=== PATIENT | male | born 1950 | race Caucasian/White ===

== ENCOUNTER 2018-05-22 12:41 | Emergency (ER) | payer MEDICARE, SELFPAY ==
[2018-05-22] VITALS (7 sets, daily range): BP systolic 126–172; BP diastolic 71–91; PULSE 66–101; RESP 13–19; O2SAT 93–99; BMI 28.7
--- NOTE | 2018-05-22 13:09 | DI.RAD.S_ITS ---
PROCEDURE: XR CHEST 1V INDICATIONS: chest pain TECHNIQUE: One view of the chest was acquired. COMPARISON: [facility], , CHEST 1 VIEW, 03/23/2016, 16:13. FINDINGS: Surgical changes and devices: None. Lungs and pleura: No pleural effusions or pneumothorax. Lungs are clear. Mediastinum: Mediastinal contours appear normal. Heart size is normal. Bones and chest wall: No suspicious bony lesions. Overlying soft tissues appear unremarkable. IMPRESSION: No acute process. Dictated by: Alexandra Mcnulty M.D. on 05/22/2018 at 13:20 Approved by: Alexandra Mcnulty M.D. on 05/22/2018 at 13:21
[2018-05-22 13:14] LABS: Add Manual Diff / Slide Review NO; Basophils Percent Auto 1.3 % (0-2); Eosinophils Percent Auto 2.2 % (2-4); Hemoglobin 13.1 g/dL (13.5-17.5); Lymphocytes Percent Auto 23.8 % (25-40); Mean Corpuscular HGB Conc 34.3 % (30-36); Mean Corpuscular Hemoglobin 33.2 PG (26-34); Mean Corpuscular Volume 96.8 fL (80-100); Monocytes Percent Auto 7.7 % (3-14); Neutrophils Absolute Auto 4400 /uL (3000-5900); Platelet Count 259 X10^3/uL (150-400); Red Blood Cell Count 3.93 X10^6/uL (4.5-5.9); Red Cell Distribution Width 13.2 % (11.6-14.8); White Blood Cell Count 6.8 X10^3/uL (4.5-11.0)
[2018-05-22 13:17] LABS: Prothrombin Time 11.3 SECONDS (10.1-12.7)
[2018-05-22 13:19] LABS: PTT Partial Thromboplastin Tim 31 SECONDS (26.4-36.2)
[2018-05-22 13:21] LABS: Alanine Aminotransferase 33 IU/L (21-72); Albumin 4.4 g/dL (3.5-5.0); Albumin Globulin Ratio 1.6 (1.0-2.8); Alkaline Phosphatase 57 U/L (38-126); Aspartate Aminotransferase 31 IU/L (17-59); Bilirubin Total 0.3 mg/dL (0.2-1.3); Blood Urea Nitrogen 31 mg/dL (9-20); Calcium 9.6 mg/dL (8.4-10.2); Carbon Dioxide 22 mmol/L (22-32); Chloride 104 mmol/L (98-107); Creatine Kinase 292 U/L (55-170); Estimated Glomerular Filt Rate > 60.0 mL/min (>60); Globulin 2.7 g/dL (1.7-4.1); Glucose 146 mg/dL (80-110); HEMOLYSIS < 15 (0-50); Lipase 66 U/L (23-300); Potassium 4.3 mmol/L (3.4-5.1); Sodium 138 mmol/L (137-145); Total Protein 7.1 g/dL (6.3-8.2)
[2018-05-22 13:35] LABS: Troponin I < 0.012 ng/mL (0.01-0.034)
[2018-05-22 13:38] LABS: CKMB % Relative Index 1.5 % (1.5-5.0); Creatine Kinase MB 4.39 ng/mL (<2.37)
[2018-05-22 13:45] LABS: D Dimer < 200 ng/mL (<230)
--- NOTE | 2018-05-22 14:57 | ED_ITS ---
HPI - Chest Pain General Chief Complaint: Chest Pain Stated Complaint: BACK PAIN,NAUSEOUS,WEAK,CHEST PAIN Time Seen by Provider: 05/22/18 12:54 History of Present Illness HPI narrative: HPI 67-year-old obese male with HTN and HLD presents for evaluation of 1+ days of poorly characterized right-sided substernal chest discomfort/pressure that is nonradiating and is without identifiable provoking or relieving factors. Patient notes these had upwards of 6 weeks of poorly characterized pain on the opposing aspect of his back that is also without provoking or relieving factors. Patient denies a tearing or radiating sensation. Patient notes that his symptoms have waxed and waned. Patient has has stressed test approximately 2 years ago, this was reportedly unremarkable. Patient took two 324 mg aspirin prior to arrival. Patient denies recent immobilization, leg trauma, estrogen use , surgery in the last four weeks, hemoptysis, or malignancy in the last 6 months. M/S/F/SocHx notable for: please see HPI; remainder reviewed with patient and in chart. ROS: Negative constitutional, eye, cardiovascular, pulmonary, GI, , MSK, skin , neurologic, psychiatric, endocrine unless noted in the HPI. Exam HR 82 , BP 143/78, RR 19, SaO2 93% on room air; at 13:42. Gen: Pleasant, non-toxic appearing, resting comfortably. HEENT: NC, AT, PEERL, EOMI. Resp: Clear to auscultation bilaterally, normal work of breathing. Card: RRR with no M/R/G, no crackles in lung bases, no pedal edema, no JVD appreciated. GI: NT/ND Vascular: Both ankles, calves, and thighs of equal size, no calf tenderness to palpation bilaterally. MSK: No chest wall TTP. No visible deformities, strength and tone WNL. Skin: Normal color with no visible lesions. Neuro: AO x 3, no facial asymmetry, vision and hearing WNL. Psych: appears moderately anxious, mood and affect otherwise appropriate. Labs / Imaging (pertinent): WBC 6.8, Hb 13.1, Na 138, K 4.3. Troponin <0.012 PT/INR 1 .0 d-dimer <200 EKG: SR at 94 bpm, no TX segment depressions, no new ST segment changes, new LBBB, or T-wave changes that would suggest acute ischemia. CXR: No acute cardiopulmonary disease process. MDM Previous chart, nursing note, and vitals reviewed. A: 67-year-old obese male with HTN and HLD presents for evaluation of 1+ days of poorly characterized right-sided substernal chest discomfort/pressure that is nonradiating and is without identifiable provoking or relieving factors. DDx and Evaluation: * ACS - doubt ACS given a non-ischemic EKG and a negative troponin greater than six hours from maximal symptom onset. * UA - atypical history, HEART score 5 (Hx - 1, EKG - 0, age - 2, risk factors - 2, troponin - 0; 30 day MACE: 12 to 16.6%) mildly elevated, however all but one positive factors reflect baseline unchanged risk. Discussion was had with the patient regarding remain in the hospital for provocative testing versus discharge with prompt PCP follow-up, patient wished to be discharged, was appraised of the wrist, and will see his primary care physician within 48 hours for further testing as appropriate. * Pericarditis - consider pericarditis unlikely given the lack of TX segment depressions as well as the absence of diffuse ST-segment elevations, lack of reduction of pain when supine, and lack of a friction rub. * Myocarditis - unlikely given the negative troponin and an EKG without characteristic TX-segment or ST-segment changes. * Dissection - dissection is unlikely given symptoms, and lack of mediastinal widening. * PE - Wells' (Signs & Sx of DVT - 0, PE is #1 or equally likelihood - 0, HR > 100 - 0, immobilization of >=3 days or surgery in last 28 days - 0, prior DVT or PE - 0, hemoptysis - 0, malignancy w/ tx in last 6 mo or palliative - 0) 0; as such the patient's negative d-dimer is appropriate for PE rule out/risk stratification. * Mediastinal Air - no evidence by CXR or auscultation. * Pneumothorax - no evidence by CXR or physical exam. * MSK - doubt given lack of reproducibility on exam. * Endocarditis - no identifiable risk factors, patient afebrile, no new murmurs appreciated on exam; doubt. * GI (Esophageal rupture, GERD) - esophageal rupture effectively excluded given the lack of mediastinal widening, non-toxic appearance, and lack of identifiable risk factors. While not definitively excluded, further evaluation of GERD is deferred to an outpatient setting * Patient was notified of their elevated blood pressure and recommended to follow up with their primary care physician. As the patient is without evidence of acute end organ dysfunction no further emergent evaluation is indicated as per the 2013 [facility] clinical policy. ED Course: Vital signs remained stable and within clinically acceptable limits. Disposition: Discharge with PCP follow up. Return to care precautions given verbally and in writing. Impression: Chest Pain, a symptom of hypertension. (please reference below for remainder of encounter information) Related Data Home Medications Medication Instructions Recorded Confirmed aspirin 650 mg PO .ONCE 05/22/18 05/22/18 latanoprost 1 drp OPHTHALMIC (EYE) BEDTIME 05/22/18 05/22/18 lisinopril-hydrochlorothiazide 1 tab PO DAILY 05/22/18 05/22/18 omeprazole magnesium [Prilosec OTC] 1 tab PO DAILY 05/22/18 05/22/18 pravastatin 1 tab PO DAILY 05/22/18 05/22/18 Allergies Allergy/AdvReac Type Severity Reaction Status Date / Time No Known Drug Allergies Allergy Verified 05/22/18 12:50 Exam Initial Vital Signs Initial Vital Signs: Vital Signs Pulse Rate 101 H 05/22/18 12:50 Respiratory Rate 17 05/22/18 12:50 Blood Pressure 172/91 H 05/22/18 12:50 Pulse Oximetry 99 05/22/18 12:50 Course Orders Ordered: ED Orders 05/22/18 12:25 D Dimer Stat 05/22/18 12:55 Complete Blood Count AUTO DIFF Stat Comprehensive Metabolic Panel Stat Lipase Stat Partial Thromboplastin Time Stat Prothrombin Time INR Stat Troponin & CK Cardiac Panel Stat 05/22/18 13:09 XR chest 1V Stat Vital Signs - 8 hr 05/22/18 12:50 05/22/18 13:10 05/22/18 13:42 Pulse Rate 101 H 92 H 82 Respiratory Rate 17 19 19 Blood Pressure 172/91 H Blood Pressure [Left Arm] 151/79 H 143/78 H Pulse Oximetry 99 97 93 05/22/18 14:10 05/22/18 14:39 Pulse Rate 84 83 Respiratory Rate 16 18 Blood Pressure Blood Pressure [Left Arm] 143/76 H 139/72 H Pulse Oximetry 97 96 MDM - Chest Pain Lab Data Result diagrams: 05/22/18 12:55 05/22/18 12:55 Lab Results 05/22/18 05/22/18 05/22/18 Range/Units 12:25 12:55 12:55 WBC 6.8 (4.5-11.0) X10^3/uL RBC 3.93 L (4.5-5.9) X10^6/uL Hgb 13.1 L (13.5-17.5) g/dL Hct 38.0 L (41-53) % MCV 96.8 (80-100) fL MCH 33.2 (26-34) PG MCHC 34.3 (30-36) % RDW 13.2 (11.6-14.8) % Plt Count 259 (150-400) X10^3/uL Neut % (Auto) 65.0 (50-75) % Lymph % (Auto) 23.8 L (25-40) % [place] % (Auto) 7.7 (3-14) % Eos % (Auto) 2.2 (2-4) % Baso % (Auto) 1.3 (0-2) % Neut # (Auto) 4400 (5746-7261) /uL PT 11.3 (10.1-12.7) SECONDS INR 1.0 (0.9-1.3) APTT 31 (26.4-36.2) SECONDS D-Dimer < 200 (<230) ng/mL Sodium (137-145) mmol/L Potassium (3.4-5.1) mmol/L Chloride (98-107) mmol/L Carbon Dioxide (22-32) mmol/L BUN (9-20) mg/dL Creatinine (0.66-1.25) mg/dL Estimated GFR (>60) mL/min BUN/Creatinine Ratio (6-22) Glucose (80-110) mg/dL Calcium (8.4-10.2) mg/dL Total Bilirubin (0.2-1.3) mg/dL AST (17-59) IU/L ALT (21-72) IU/L Alkaline Phosphatase (38-126) U/L Total Creatine Kinase (55-170) U/L CK-MB (CK-2) (<2.37) ng/mL CK-MB (CK-2) Rel Index (1.5-5.0) % Troponin I (0.01-0.034) ng/mL Total Protein (6.3-8.2) g/dL Albumin (3.5-5.0) g/dL Globulin (1.7-4.1) g/dL Albumin/Globulin Ratio (1.0-2.8) Lipase (23-300) U/L 05/22/18 Range/Units 12:55 WBC (4.5-11.0) X10^3/uL RBC (4.5-5.9) X10^6/uL Hgb (13.5-17.5) g/dL Hct (41-53) % MCV (80-100) fL MCH (26-34) PG MCHC (30-36) % RDW (11.6-14.8) % Plt Count (150-400) X10^3/uL Neut % (Auto) (50-75) % Lymph % (Auto) (25-40) % [place] % (Auto) (3-14) % Eos % (Auto) (2-4) % Baso % (Auto) (0-2) % Neut # (Auto) (1053-3132) /uL PT (10.1-12.7) SECONDS INR (0.9-1.3) APTT (26.4-36.2) SECONDS D-Dimer (<230) ng/mL Sodium 138 (137-145) mmol/L Potassium 4.3 (3.4-5.1) mmol/L Chloride 104 (98-107) mmol/L Carbon Dioxide 22 (22-32) mmol/L BUN 31 H (9-20) mg/dL Creatinine 1.00 (0.66-1.25) mg/dL Estimated GFR > 60.0 (>60) mL/min BUN/Creatinine Ratio 31.0 H (6-22) Glucose 146 H (80-110) mg/dL Calcium 9.6 (8.4-10.2) mg/dL Total Bilirubin 0.3 (0.2-1.3) mg/dL AST 31 (17-59) IU/L ALT 33 (21-72) IU/L Alkaline Phosphatase 57 (38-126) U/L Total Creatine Kinase 292 H (55-170) U/L CK-MB (CK-2) 4.39 H (<2.37) ng/mL CK-MB (CK-2) Rel Index 1.5 (1.5-5.0) % Troponin I < 0.012 (0.01-0.034) ng/mL Total Protein 7.1 (6.3-8.2) g/dL Albumin 4.4 (3.5-5.0) g/dL Globulin 2.7 (1.7-4.1) g/dL Albumin/Globulin Ratio 1.6 (1.0-2.8) Lipase 66 (23-300) U/L Discharge Plan Departure Prescriptions: No Action latanoprost 0.005 % drops 1 drp ophthalmic (eye) BEDTIME RF: 0 lisinopril-hydrochlorothiazide 20-12.5 mg tablet 1 tab PO DAILY RF: 0 pravastatin 20 mg tablet 1 tab PO DAILY RF: 0 aspirin 325 mg Tablet 650 mg PO .ONCE RF: 0 omeprazole magnesium [Prilosec OTC] 20 mg Tablet,Delayed Release (Dr/Ec) 1 tab PO DAILY RF: 0
== END 2018-05-22 15:37 | disposition home or self-care (01) ==
PROVIDERS: Emergency Provider Emergency Medicine; Family Provider Family Medicine; PCP Family Medicine
DX: R07.89 Other chest pain (principal)
CPT/HCPCS: 36591; 71045; 80053; 82550; 82553; 83690; 84484; 85025; 85379; 85610; 85730; 93005; 93010; 99283; 99285

== ENCOUNTER → 2019-05-21 11:36 | Outpatient (CLI) | payer MEDICARE, SELFPAY ==
--- NOTE | 2019-05-21 | DI.RAD.S_ITS ---
PROCEDURE: XR KNEE RT 3V INDICATIONS: RT KNEE PAIN TECHNIQUE: 3 views of the knee were acquired. COMPARISON: [facility], , KNEE 3V RIGHT, 07/11/2010, 15:35. FINDINGS: Bones: No fractures or dislocations but there has been progression of medial compartment knee joint osteoarthritis at the right knee with secondary varus angulation to a greater degree than previously present in July of 2010. There now is [id number] articulation at the medial compartment and prominent osteophytic spurring and degenerative knee joint osteoarthritis at the patellofemoral joint. No suspicious bony lesions. Soft tissues: No joint effusion. No suspicious soft tissue calcifications. IMPRESSION: Severe knee joint osteoarthritis, [id number] articulation, no trauma. Dictated by: Michael Andujar M.D. on 05/21/2019 at 13:33 Approved by: Michael Andujar M.D. on 05/21/2019 at 13:35
== END ==
PROVIDERS: PCP Family Medicine; Visit Provider Family Medicine
DX: M25.561 Pain in right knee (principal); M17.11 Unilateral primary osteoarthritis, right knee
CPT/HCPCS: 73562

== ENCOUNTER 2019-10-23 09:36 | Day surgery (SDC) | payer MEDICARE, SELFPAY ==
[2019-10-23] VITALS (18 sets, daily range): BP systolic 113–164; BP diastolic 55–93; PULSE 70–128; RESP 12–22; TEMP 36.6–37.1; O2SAT 92–100; BMI 29.2
--- NOTE | 2019-10-23 | PATH_ITS ---
[facility] Accession Number: [id number] . 01 Material submitted: . appendix - APPENDIX . 01 Clinical history: . ABDOMEN PAIN COMES AND GOES LOWER RIGHT TO UPPER . 02 Diagnosis: Appendix, Appendectomy: Acute appendicitis with serositis. No evidence of neoplasm. [facility] 10/27/2019 1313 Local . 02 Electronically signed: . Lg Vigil MD, PhD, Pathologist NPI- [id number] . 01 Gross description: . Received in formalin, labeled appendix, is an intact appendix (length-6.6 cm, diameter-up to 1.0 cm) with carvajal-peres partially exudate-covered serosa and attached mesoappendix (up to 0.2 cm in depth). The resection margin is received stapled. The lumen contains carvajal-peres solid soft material. The wall is up to 0.3 cm thick. No nodules, masses, or lesions are identified. The resection margin is inked blue. Section Code: (A1) resection margin en face and three business services representative serial sections; (A2) one half of the bivalve tip. ([id number]) /[facility] 10/26/2019 1455 Local . 02 Pathologist provided ICD-10: K35.80 . 02 CPT . 801877 Performed at: 01 [facility] [address], [place], [place] [id number] MD Juan Jose Tobias MD Phone: [phone] Performed at: 02 [facility] [address] [place], [place] [id number] MD Ingrid Antunez MD Phone: [phone]
--- NOTE | 2019-10-23 09:47 | ED_ITS ---
HPI - Abdominal Pain General Chief Complaint: Abdominal Pain Stated Complaint: abdomen pain comes and goes lower right to upper Time Seen by Provider: 10/23/19 09:43 Source: patient Mode of arrival: Ambulatory Limitations: no limitations History of Present Illness HPI narrative: Patient is a 68-year-old male who presents with right lower quadrant pain which started this morning. He says last night he has had decr eased appetite and overall hasn't felt well. The pain seems to be in his right lower quadrant it is worse with movement. He denies any nausea vomiting or fever. He has no flank pain or testicular pain. He is noted to be tachycardic in the 120s. He said a day or 2 ago he had some epigastric pain but doesn't have any now. He denies any dizziness lightheadedness chest pain or shortness of breath. MD complaint: abdominal pain Onset (ago): hour(s) Pain Consistency: constant Location: RLQ Quality: aching and sharp Radiation: none Related Data Home Medications Medication Instructions Recorded Confirmed lisinopril-hydrochlorothiazide 1 tab PO DAILY 05/22/18 10/23/19 allopurinol 300 mg tablet 300 mg PO BID 06/29/19 10/23/19 Allergies Allergy/AdvReac Type Severity Reaction Status Date / Time Hdampmz-Qmz-Mke Reductase AdvReac Unknown Muscle Pain Verified 10/23/19 13:05 Inhibitor Review of Systems Review of Systems Narrative: GENERAL: Denies chills, fatigue, malaise, fever, sweats, travel HEENT: Denies sinus pain, ear pain, sore throat, difficulty swallowing, neck pain RESPIRATORY: Denies dyspnea, cough, wheezing, hemoptysis, sputum. CARDIOVASCULAR: Denies chest pain, palpitations, orthopnea, edema GASTROINTESTINAL: See HPI : Denies dysuria, frequency, incontinence, hematuria, urinary retention, flank pain. MUSCULOSKELETAL: Denies weakness, joint pain, or bony pain SKIN: No rash, no erythema, no pruritus NEUROLOGIC: Denies weakness, dizziness, headache, numbness, change in speech, confusion PSYCHIATRIC: No concerning psychosocial issues. 12 point review of systems is negative except for those stated above and HPI Patient History Medical History Gout (Acute) Hypertension (Acute) Insomnia (Chronic) Knee pain (Acute) Obstructive sleep apnea (Chronic) Social History household members: spouse Smoking Status: Never smoker alcohol intake: current Smoking Status: Never smoker Exam Initial Vital Signs Initial Vital Signs: Vital Signs Temperature 98.1 F 10/23/19 09:40 Pulse Rate 128 H 10/23/19 09:40 Respiratory Rate 22 10/23/19 09:40 Blood Pressure 159/71 H 10/23/19 09:40 Pulse Oximetry 97 10/23/19 09:40 GENERAL: alert well-appearing older gentleman and in no acute distress. HEENT: Head atraumatic,EOMI, pupils reactive, face symmetric, moist mucous membranes CARDIOVASCULAR: Regular rate and rhythm without murmurs, rubs or gallops. RESPIRATORY: Breath sounds equal bilaterally, no wheezes rales or rhonchi. ABDOMEN: Soft, tender right lower quadrant no guarding no rebound no right quadrant pain : No CVA tenderness EXTREMITIES: Normal range of motion, no clubbing or edema. Neurovascularly intact NEUROLOGICAL: Alert and oriented x4.Normal gait and speech. Cranial nerves II through XII grossly intact. SKIN: Warm, dry, no laceration, no petechiae, no rashes or lesions. Course Orders Ordered: ED Orders 10/23/19 09:55 Complete Blood Count AUTO DIFF Stat Comprehensive Metabolic Panel Stat Lactate (Lactic Acid) Stat Lipase Stat Troponin & CK Cardiac Panel Stat EKG-12 Lead Stat 10/23/19 09:56 CT abdomen pelvis w con Stat 10/23/19 11:12 Blood Culture Stat Acetaminophen (Tylenol) 650 mg PO Q6HR PRN PRN Reason: Pain, Mild (1-3) Allopurinol (Zyloprim) 300 mg PO BID ANYA Docusate Sodium (Colace) 100 mg PO BID PRN PRN Reason: Constipation Piperacillin/Tazobactam/Dextrose (Zosyn) 3.375 gm in 50 mls @ 100 mls/hr IV Q8H ANYA Stop: 10/23/19 19:31 Sodium Chloride (Normal Saline 0.9%) 1,000 mls @ 75 mls/hr IV CONT ANYA Last Admin: 10/23/19 16:42 Dose: 75 mls/hr Documented by: ISAMAR Naloxone HCl (Narcan) 0.2 mg IV Q2MIN PRN PRN Reason: Opiate Reversal Ondansetron HCl (Zofran) 4 mg IV Q4HR PRN PRN Reason: Nausea And Vomiting Oxycodone HCl (Percolone) 5 mg PO Q4HR PRN PRN Reason: Pain, Moderate (4-6) Oxycodone HCl (Percolone) 10 mg PO Q6HR PRN PRN Reason: Pain, Severe (7-10) Discontinued Medications Acetaminophen (Tylenol) 975 mg PO NOW ONE Stop: 10/23/19 12:33 Last Admin: 10/23/19 13:13 Dose: 975 mg Documented by: GANESH Benzocaine (Cepacol Lozenge) 1 each PO NOW ONE Stop: 10/23/19 15:09 Bupivacaine HCl/Epinephrine Bitart (Marcaine 0.25% W/ Epi (Pf)) 20 ml INJ NOW ONE Stop: 10/23/19 14:06 Last Admin: 10/23/19 14:06 Dose: 30 ml Documented by: TITUS Fentanyl (Sublimaze) 0 mcg IV Q5MIN PRN PRN Reason: Pain, Severe (7-10) Last Admin: 10/23/19 15:03 Dose: 25 mcg Documented by: GANESH Gabapentin (Neurontin) 300 mg PO NOW ONE Stop: 10/23/19 12:33 Last Admin: 10/23/19 13:13 Dose: 300 mg Documented by: GANESH Sodium Chloride (Normal Saline 0.9%) 1,000 mls @ 1,000 mls/hr IV CONT ANYA Last Infusion: 10/23/19 11:03 Dose: 0 mls/hr Documented by: Admin: 10/23/19 10:08 Dose: 1,000 mls/hr Documented by: VICTORINO Piperacillin/Tazobactam/Dextrose (Zosyn) 3.375 gm in 50 mls @ 100 mls/hr IV NOW ONE Stop: 10/23/19 11:49 Last Infusion: 10/23/19 12:20 Dose: 0 mls/hr Documented by: Admin: 10/23/19 11:30 Dose: 100 mls/hr Documented by: VICTORINO Sodium Chloride (Normal Saline 0.9%) 1,000 mls @ 150 mls/hr IV BOLUS ONE Stop: 10/23/19 18:06 Last Infusion: 10/23/19 12:54 Dose: 0 mls/hr Documented by: Admin: 10/23/19 11:30 Dose: 150 mls/hr Documented by: VICTORINO Lactated Ringer's (Lactated Ringers) 1,000 mls @ 42 mls/hr IV CONT ANYA Last Infusion: 10/23/19 15:31 Dose: 0 mls/hr Documented by: Admin: 10/23/19 14:21 Dose: 42 mls/hr Documented by: Infusion: 10/23/19 14:21 Dose: 42 mls/hr Documented by: Admin: 10/23/19 13:07 Dose: 42 mls/hr Documented by: GANESH Lactated Ringer's (Lactated Ringers) 1,000 mls @ 120 mls/hr IV CONT ANYA Oxycodone HCl (Percolone) 5 mg PO PACUNOW PRN PRN Reason: Mild or moderate pain Last Admin: 10/23/19 15:27 Dose: 5 mg Documented by: GANESH Vital Signs Vital signs: Vital Signs - 8 hr 10/23/19 10:57 10/23/19 11:35 Pulse Rate 104 H 110 H Respiratory Rate 20 18 Blood Pressure [Left Arm] 149/86 H Pulse Oximetry 97 100 MDM - Abdominal Pain Lab Data Attestation: I reviewed the patient's lab results. Result diagrams: 10/23/19 09:55 10/23/19 09:55 Labs: Lab Results 10/23/19 10/23/19 10/23/19 Range/Units 09:55 09:55 09:55 WBC 13.4 H (4.5-11.0) X10^3/uL RBC 4.12 L (4.5-5.9) X10^6/uL Hgb 13.4 L (13.5-17.5) g/dL Hct 40.0 L (41-53) % MCV 97.0 (80-100) fL MCH 32.5 (26-34) PG MCHC 33.5 (30-36) % RDW 15.7 H (11.6-14.8) % Plt Count 223 (150-400) X10^3/uL Neut % (Auto) 78.0 H (50-75) % Lymph % (Auto) 11.5 L (25-40) % [place] % (Auto) 8.8 (3-14) % Eos % (Auto) 0.9 L (2-4) % Baso % (Auto) 0.8 (0-2) % Neut # (Auto) 56608 H (0370-5529) /uL Lymph # (Auto) 1500 (2009-6736) /uL [place] # (Auto) 1200 H (0-900) /uL Eos # (Auto) 100 (0-450) /uL Baso # (Auto) 100 (0-100) /uL Sodium 139 (137-145) mmol/L Potassium 4.2 (3.4-5.1) mmol/L Chloride 103 (98-107) mmol/L Carbon Dioxide 25 (22-32) mmol/L BUN 20 (9-20) mg/dL Creatinine 0.80 (0.66-1.25) mg/dL Estimated GFR > 60.0 (>60) mL/min BUN/Creatinine Ratio 25.0 H (6-22) Glucose 123 H (80-110) mg/dL Lactate 1.3 (0.7-2.1) mmol/L Calcium 10.2 (8.4-10.2) mg/dL Total Bilirubin 0.5 (0.2-1.3) mg/dL AST 27 (17-59) IU/L ALT 24 (<50) IU/L Alkaline Phosphatase 77 (38-126) U/L Total Creatine Kinase 113 (55-170) U/L CK-MB (CK-2) 2.02 (<2.37) ng/mL CK-MB (CK-2) Rel Index 1.8 (1.5-5.0) % Troponin I < 0.012 (0.01-0.034) ng/mL Total Protein 8.0 (6.3-8.2) g/dL Albumin 4.7 (3.5-5.0) g/dL Globulin 3.3 (1.7-4.1) g/dL Albumin/Globulin Ratio 1.4 (1.0-2.8) Lipase 38 (23-300) U/L Point of care testing: Urine Dip Bedside Urine Glucose Negative Bedside Urine Bilirubin - Negative Bedside Urine Ketone - Negative Urine Specific [employer] 1.010 Bedside Urine Occult Blood - Negative Bedside Urine pH 6.5 Bedside Urine Protein - Negative Bedside Urine Urobilinogen - Negative Bedside Urine Nitrite - Negative Bedside Urine Leukocytes - Negative Esterase Imaging Data CT scan - abdomen/pelvis: Radiologist's Impression: PROCEDURE: CT ABDOMEN PELVIS W CON INDICATIONS: rlq pain TECHNIQUE: After the administration of intravenous contrast, 5 mm thick sections acquired from the diaphragm to the symphysis. 5 mm coronal and sagittal reformats were acquired. For radiation dose reduction, the following was used: automated exposure control, adjustment of mA and/or kV according to patient size. COMPARISON: None. FINDINGS: Image quality: Excellent. ABDOMEN: Lung bases: Lung bases are clear. Heart size is normal. Coronary artery calcifications are seen. Solid organs: Liver is normal in size and enhancement. Within the liver, nonenhancing water density cysts are seen, with the largest measuring 4.2 cm. Diffuse fatty liver infiltration is noted. Gallbladder wall does not appear thickened. Biliary system is non dilated. Pancreas enhances normally. Spleen is normal in size and enhancement. Incidental note is made of an accessory spleen along the hilum of the primary spleen. No adrenal nodules. Kidneys demonstrate normal size and enhancement, without hydronephrosis. Bilateral simple appearing renal cysts are seen. Peritoneum and bowel: In this patient with this given history, scrutiny is given to the appendix. The appendix is abnormal in hyperenhancing, with a caliber of 11 mm. There is moderate surrounding inflammatory change seen. An appendicolith is faintly seen. Moderate fat stranding is seen surrounding the appendix. No free air is seen. No loculated fluid collections are seen. No dilated loops of bowel are seen. No focal colonic body is seen. Nodes and vessels: No retroperitoneal or mesenteric adenopathy by size criteria. Aorta and inferior vena cava are normal in size. Atherosclerotic calcification is noted. Miscellaneous: No ventral hernias. PELVIS: Genitourinary: Bladder wall thickness is normal. Miscellaneous: No inguinal adenopathy. There are bilateral fat-containing inguinal hernias. Bones: No suspicious bony lesions. There is a left hip arthroplasty seen. No vertebral body compression fractures. Mild levoconvex scoliotic curvature is noted. Degenerative changes are seen, which are most prominent involving the lower lumbar spine. IMPRESSION: Acute appendicitis. No findings of perforation or abscess are seen. Incidental note is made of: Coronary artery calcification Liver and renal cysts Levoconvex lumbar curvature Left hip arthroplasty hardware Bilateral fat-containing inguinal hernias Dictated by: Fritz Starr M.D. on 10/23/2019 at 10:03 MDM Narrative Medical decision making narrative: The patient is found to have appendicitis with leukocytosis of 13 Dr. Contreras, surgery has been updated patient's symptoms test results request Nadjasyn. Patient has been NPO since last evening. Discharge Plan Departure Patient Disposition: Admitted As Inpatient Clinical Impression: Acute appendicitis Qualifiers: Acute appendicitis type: with localized peritonitis Appendicitis gangrene p resence: without gangrene Appendicitis perforation presence: without perforation Appendicitis abscess presence: without abscess Qualified Code(s): K35.30 - Acute appendicitis with localized peritonitis, without perforation or gangrene Discharge Date/Time: 10/23/19 12:57 Admit Date/Time: 10/23/19 12:11 Admit Provider: Maura Contreras
--- NOTE | 2019-10-23 09:56 | DI.CT.S_ITS ---
PROCEDURE: CT ABDOMEN PELVIS W CON INDICATIONS: rlq pain TECHNIQUE: After the administration of intravenous contrast, 5 mm thick sections acquired from the diaphragm to the symphysis. 5 mm coronal and sagittal reformats were acquired. For radiation dose reduction, the following was used: automated exposure control, adjustment of mA and/or kV according to patient size. COMPARISON: None. FINDINGS: Image quality: Excellent. ABDOMEN: Lung bases: Lung bases are clear. Heart size is normal. Coronary artery calcifications are seen. Solid organs: Liver is normal in size and enhancement. Within the liver, nonenhancing water density cysts are seen, with the largest measuring 4.2 cm. Diffuse fatty liver infiltration is noted. Gallbladder wall does not appear thickened. Biliary system is non dilated. Pancreas enhances normally. Spleen is normal in size and enhancement. Incidental note is made of an accessory spleen along the hilum of the primary spleen. No adrenal nodules. Kidneys demonstrate normal size and enhancement, without hydronephrosis. Bilateral simple appearing renal cysts are seen. Peritoneum and bowel: In this patient with this given history, scrutiny is given to the appendix. The appendix is abnormal in hyperenhancing, with a caliber of 11 mm. There is moderate surrounding inflammatory change seen. An appendicolith is faintly seen. Moderate fat stranding is seen surrounding the appendix. No free air is seen. No loculated fluid collections are seen. No dilated loops of bowel are seen. No focal colonic body is seen. Nodes and vessels: No retroperitoneal or mesenteric adenopathy by size criteria. Aorta and inferior vena cava are normal in size. Atherosclerotic calcification is noted. Miscellaneous: No ventral hernias. PELVIS: Genitourinary: Bladder wall thickness is normal. Miscellaneous: No inguinal adenopathy. There are bilateral fat-containing inguinal hernias. Bones: No suspicious bony lesions. There is a left hip arthroplasty seen. No vertebral body compression fractures. Mild levoconvex scoliotic curvature is noted. Degenerative changes are seen, which are most prominent involving the lower lumbar spine. IMPRESSION: Acute appendicitis. No findings of perforation or abscess are seen. Incidental note is made of: Coronary artery calcification Liver and renal cysts Levoconvex lumbar curvature Left hip arthroplasty hardware Bilateral fat-containing inguinal hernias Dictated by: Fritz Starr M.D. on 10/23/2019 at 10:03 Approved by: Fritz Starr M.D. on 10/23/2019 at 10:07
[2019-10-23] MEDS: SODIUM CHLORIDE 0.9% 1,000 ML 1000 ML IV (10:08)
[2019-10-23 10:13] LABS: Add Manual Diff / Slide Review NO; Basophils Absolute Auto 100 /uL (0-100); Basophils Percent Auto 0.8 % (0-2); Eosinophils Absolute Auto 100 /uL (0-450); Eosinophils Percent Auto 0.9 % (2-4); Hemoglobin 13.4 g/dL (13.5-17.5); Lymphocytes Absolute Auto 1500 /uL (1100-4500); Lymphocytes Percent Auto 11.5 % (25-40); Mean Corpuscular HGB Conc 33.5 % (30-36); Mean Corpuscular Hemoglobin 32.5 PG (26-34); Monocytes Absolute Auto 1200 /uL (0-900); Monocytes Percent Auto 8.8 % (3-14); Neutrophils Absolute Auto 10400 /uL (1500-7000); Platelet Count 223 X10^3/uL (150-400); Red Blood Cell Count 4.12 X10^6/uL (4.5-5.9); Red Cell Distribution Width 15.7 % (11.6-14.8); White Blood Cell Count 13.4 X10^3/uL (4.5-11.0)
[2019-10-23 10:23] LABS: Lactate (Lactic Acid) 1.3 mmol/L (0.7-2.1)
[2019-10-23 10:24] LABS: Alanine Aminotransferase 24 IU/L (<50); Albumin 4.7 g/dL (3.5-5.0); Albumin Globulin Ratio 1.4 (1.0-2.8); Alkaline Phosphatase 77 U/L (38-126); Aspartate Aminotransferase 27 IU/L (17-59); Bilirubin Total 0.5 mg/dL (0.2-1.3); Blood Urea Nitrogen 20 mg/dL (9-20); Calcium 10.2 mg/dL (8.4-10.2); Carbon Dioxide 25 mmol/L (22-32); Chloride 103 mmol/L (98-107); Creatine Kinase 113 U/L (55-170); Estimated Glomerular Filt Rate > 60.0 mL/min (>60); Globulin 3.3 g/dL (1.7-4.1); Glucose 123 mg/dL (80-110); HEMOLYSIS < 15 (0-50); Lipase 38 U/L (23-300); Potassium 4.2 mmol/L (3.4-5.1); Sodium 139 mmol/L (137-145)
[2019-10-23 10:35] LABS: Troponin I < 0.012 ng/mL (0.01-0.034)
[2019-10-23 10:40] LABS: CKMB % Relative Index 1.8 % (1.5-5.0); Creatine Kinase MB 2.02 ng/mL (<2.37)
[2019-10-23] MEDS: SODIUM CHLORIDE 0.9% 1,000 ML 150 ML IV (11:30)
[2019-10-23] MEDS: PIPERACILLIN-TAZO 3.375 GM/50 ML FROZ.PIGGY IV ×2 (11:30→19:15)
--- NOTE | 2019-10-23 12:12 | P.HP_ITS ---
History of Present Illness History of Present Illness Date Patient Seen: 10/23/19 Time Patient Seen: 12:12 Chief complaint: abdomen pain comes and goes lower right to upper Narrative: This is a 68-year-old man with history of gout and hypertension, a prior hip replacement, and awaiting any replacement, who came into the ER this morning with right-sided abdominal pain which began last evening. He had some epigastric pain a few days ago, which he felt was an intolerance of the indomethacin which he was taking for his gout. The epigastric pain resolved after he stops the indomethacin. He said the right-sided abdominal pain came on somewhat suddenly as he was getting up from sitting down yesterday afternoon. He felt like a pinchor that he tore something. He notes the pain was still there this morning, and he was generally feeling unwell, with a poor appetite. So he came into the ER to get checked out. In the ER he was found to have leukocytosis, and a CT scan which was indicative of early acute appendicitis. He last ate last evening, and took his bills with a sip of water this morning. He denies a history of ever having had a heart attack or stroke, although he has come into the ER before for chest pain. He was always told that it was noncardiac. ROS: GENERAL: Denies chills, fatigue, malaise, fever, sweats, travel HEENT: Denies sinus pain, ear pain, sore throat, difficulty swallowing, neck pain RESPIRATORY: Denies dyspnea, cough, wheezing, hemoptysis, sputum. CARDIOVASCULAR: Denies chest pain, palpitations, orthopnea, edema GASTROINTESTINAL: See HPI : Denies dysuria, frequency, incontinence, hematuria, urinary retention, flank pain. MUSCULOSKELETAL: Denies weakness, reports right knee pain, denies other musculoskeletal pains SKIN: No rash, no erythema, no pruritus NEUROLOGIC: Denies weakness, dizziness, headache, numbness, change in speech, confusion PSYCHIATRIC: No concerning psychosocial issues. PE: GENERAL: Well groomed and cooperative. Appears stated age. Answers questions promptly and appropriately. Vital signs noted. HENT: Normocephalic, atraumatic. Hearing intact. Oral mucosa is pink and moist. EYES: Conjunctiva pink, sclera white, no periorbital swelling. CARDIOVASCULAR: Regular rate. No pedal edema. RESPIRATORY: Non-tachypneic, breathing comfortably on room air. GASTROINTESTINAL: Abdomen soft and non-distended; focal tenderness in the right lower quadrant, negative Rovsing sign, 1/2 cm umbilical hernia defect which is nontender and not incarcerated GENITALURINARY: No flank tenderness. MUSCULOSKELETAL: Equal tone and mass bilaterally. SKIN: Warm, dry, soft, appropriate color for ethnicity. No other lesions, rashes, or wounds. NEURO: Alert and Oriented X 3. No gross sensory deficits, or cognitive issues. PSYCH: Appropriate affect and mood. Patient History Medical History (Updated 10/23/19 @ 12:19 by Maura Contreras MD) Gout (Acute) Hypertension (Acute) Insomnia (Chronic) Knee pain (Acute) Obstructive sleep apnea (Chronic) Family & Social History Safety & Behavioral: Feels Safe in Current Yes Environment Tobacco & Substance use: Smoking Status Never smoker alcohol intake frequency 0-2 drinks per day Substance Use Type does not use Meds Home Medications and Allergies Home Medications Medication Instructions Recorded Confirmed Type lisinopril-hydrochlorothiazide 1 tab PO DAILY 05/22/18 10/23/19 History allopurinol 300 mg tablet 300 mg PO DAILY 06/29/19 10/23/19 History Allergies Allergy/AdvReac Type Severity Reaction Status Date / Time No Known Drug Allergies Allergy Verified 06/29/19 14:49 Exam Vital Signs (past 8 hours): - 10/23/19 09:40 10/23/19 09:52 10/23/19 10:00 Temperature 98.1 F Pulse Rate 128 H 117 H 108 H Respiratory Rate 22 18 16 Blood Pressure 159/71 H Blood Pressure [Left Arm] 147/87 H Pulse Oximetry 97 97 96 10/23/19 10:57 10/23/19 11:35 Temperature Pulse Rate 104 H 110 H Respiratory Rate 20 18 Blood Pressure Blood Pressure [Left Arm] 149/86 H Pulse Oximetry 97 100 Oxygen Delivery Method Room Air Objective Imaging CT scan - abdomen: Radiologist's impression: [address] [address] [address] Scan Report Signed Patient: Ward Francis BRAYDENR#: [id number] : 9Acct:[id number] Age/Sex: 68 / MDate of Service: 10/23/19 Loc: ED Accession Number: [id number] Procedure: CT abdomen pelvis w con Ordering Provider: Sarita Lane D.O. PROCEDURE: CT ABDOMEN PELVIS W CON INDICATIONS: rlq pain TECHNIQUE: After the administration of intravenous contrast, 5 mm thick sections acquired from the diaphragm to the symphysis. 5 mm coronal and sagittal reformats were acquired. For radiation dose reduction, the following was used: automated exposure control, adjustment of mA and/or kV according to patient size. COMPARISON: None. FINDINGS: Image quality: Excellent. ABDOMEN: Lung bases: Lung bases are clear. Heart size is normal. Coronary artery calcifications are seen. Solid organs: Liver is normal in size and enhancement. Within the liver, nonenhancing water density cysts are seen, with the largest measuring 4.2 cm. Diffuse fatty liver infiltration is noted. Gallbladder wall does not appear thickened. Biliary system is non dilated. Pancreas enhances normally. Spleen is normal in size and enhancement. Incidental note is made of an accessory spleen along the hilum of the primary sp gonzalez. No adrenal nodules. Kidneys demonstrate normal size and enhancement, without hydronephrosis. Bilateral simple appearing renal cysts are seen. Peritoneum and bowel: In this patient with this given history, scrutiny is given to the appendix. The appendix is abnormal in hyperenhancing, with a caliber of 11 mm. There is moderate surrounding inflammatory change seen. An appendicolith is faintly seen. Moderate fat stranding is seen surrounding the appendix. No free air is seen. No loculated fluid collections are seen. No dilated loops of bowel are seen. No focal colonic body is seen. Nodes and vessels: No retroperitoneal or mesenteric adenopathy by size criteria. Aorta and inferior vena cava are normal in size. Atherosclerotic calcification is noted. Miscellaneous: No ventral hernias. PELVIS: Genitourinary: Bladder wall thickness is normal. Miscellaneous: No inguinal adenopathy. There are bilateral fat-containing inguinal hernias. Bones: No suspicious bony lesions. There is a left hip arthroplasty seen. No vertebral body compression fractures. Mild levoconvex scoliotic curvature is noted. Degenerative changes are seen, which are most prominent involving the lower lumbar spine. IMPRESSION: Acute appendicitis. No findings of perforation or abscess are seen. Incidental note is made of: Coronary artery calcification Liver and renal cysts Levoconvex lumbar curvature Left hip arthroplasty hardware Bilateral fat-containing inguinal hernias Dictated by: Fritz Starr M.D. on 10/23/2019 at 10:03 Approved by: Fritz Starr M.D. on 10/23/2019 at 10:07 Labs Result Diagrams: 10/23/19 09:55 10/23/19 09:55 Labs: Laboratory Results - last 24 hr 10/23/19 10/23/19 10/23/19 09:55 09:55 09:55 WBC 13.4 H RBC 4.12 L Hgb 13.4 L Hct 40.0 L MCV 97.0 MCH 32.5 MCHC 33.5 RDW 15.7 H Plt Count 223 Neut % (Auto) 78.0 H Lymph % (Auto) 11.5 L [place] % (Auto) 8.8 Eos % (Auto) 0.9 L Baso % (Auto) 0.8 Neut # (Auto) 18922 H Lymph # (Auto) 1500 [place] # (Auto) 1200 H Eos # (Auto) 100 Baso # (Auto) 100 Sodium 139 Potassium 4.2 Chloride 103 Carbon Dioxide 25 BUN 20 Creatinine 0.80 Estimated GFR > 60.0 BUN/Creatinine Ratio 25.0 H Glucose 123 H Lactate 1.3 Calcium 10.2 Total Bilirubin 0.5 AST 27 ALT 24 Alkaline Phosphatase 77 Total Creatine Kinase 113 CK-MB (CK-2) 2.02 CK-MB (CK-2) Rel Index 1.8 Troponin I < 0.012 Total Protein 8.0 Albumin 4.7 Globulin 3.3 Albumin/Globulin Ratio 1.4 Lipase 38 Assessment & Plan Assessment and plan (1) Gout: Current visit: Yes Status: Acute (2) Knee pain: Current visit: Yes Status: Acute (3) Acute appendicitis: Current visit: Yes Status: Acute (4) Hypertension: Current visit: No Status: Acute (5) Obstructive sleep apnea: Current visit: No Status: Chronic Assessment & Plan narrative: This is a 68-year-old man with what appears to be early acute appendicitis. I discussed with the patient the options for treatment, which include surgical removal of the appendix, or antibiotic treatment of his appendicitis. I explained him that in his case, since he has a fecalith in the appendix, he has statistically a 100% chance of recurrent appendicitis in the next 2 years. He seems to be in good enough health to tolerate surgery, and we've discussed the risks and benefits of surgery which include bleeding, infection, damage to nearby structures, need for additional procedures, need for open surgery, anastomotic leak, pelvic abscess, risks of anesthesia. The patient desires to proceed with appendectomy. Plan: To OR for laparoscopic, possible open appendectomy Time Spent With Patient Time with patient: 15-24 minutes Quality VTE Deep Vein Thrombosis/Pulmonary Embolism Present on Admission: No
[2019-10-23] MEDS: LACTATED RINGERS 1,000 ML 42 ML IV ×2 (13:07→14:21)
[2019-10-23] MEDS: ACETAMINOPHEN 325 MG TABLET 975 MG PO (13:13)
[2019-10-23] MEDS: GABAPENTIN 300 MG CAPSULE PO (13:13)
[2019-10-23] MEDS: BUPIVACAINE 0.25% W/ EPI (PF) 10 ML VIAL 20 ML INJ (14:06)
[2019-10-23] MEDS: fentaNYL 100 MCG/2 ML INJ IV (15:03)
--- NOTE | 2019-10-23 15:18 | PM.OP.1 ---
Operative Date/Time/Diagnoses Date of procedure: 10/23/19 Time of procedure: 15:18 Pre-op diagnosis: acute appendicitis Post-op diagnosis: same Procedure & Clinicians Procedure: Laparoscopic appendectomy Same procedure as scheduled: Yes Indications: Acute appendicitis Surgeon: Maura Contreras Click Yes if Unassisted: Yes Anesthesia Type: General Operative Notes Findings: Thickened appendix with hard stone palpated in the appendix Specimen(s): other (Appendix) Estimated Blood Loss (mL): 1 Procedure in detail: The patient was brought into the operating room and placed supine on the OR table. Sequential compression devices were placed on both legs and turned on. Appropriate perioperative antibiotics were given prior to the start of surgery. General anesthesia was induced the patient was intubated. Romero catheter was placed in sterile fashion. The abdomen was prepped and draped in sterile fashion. Surgical time-out was conducted. Local anesthetic was injected under the skin just superior to the umbilicus and a 5 mm vertical incision was made at this site. The umbilical stalk was grasped with a Maury and elevated. A Veress needle was passed through the fascia into proper position. The position was tested with a saline drop test which was appropriate for intra-abdominal Veress needle placement. The abdomen was then insufflated in the usual fashion. Once insufflated to 15 mm Hg the Veress needle was removed and a 5 mm optical trocar was placed under direct vision using a 5 mm 30 degree scope. Once the camera was inside the abdomen I took a look around. There was no injury from port placement. Two additional ports were placed in a similar fashion in the suprapubic midline and left lower quadrant. The umbilical port was upsized to a 10-12 mm port. The patient was placed in Trendelenburg position with the right side up. The cecum was exposed and the appendix was seen diving posteriorly behind the cecum. There was some clear fluid around the cecum and the base of the appendix. The appendix was grasped and elevated, it was thickened and dilated. There was no sign of perforation. There was a thick mesoappendix which was adherent to the abdominal wall, and heavily vascularized. Tedious dissection was undertaken to carefully cauterize and divide each vessel as the mesoappendix was divided using [place] Ligasure. The appendix was then elevated and the base of it was clearly dissected so that it could be seen going right onto the cecum. A 60 mm blue load stapler was then brought in through the umbilical port and I stapled across the cecum just below the base of the appendix, as it entered the cecum, dividing it with good hemostasis. Once the appendix was freed, it was brought through the umbilical port and passed off the table for pathology. Attention was then turned back to the raw surface of the mesoappendix and the cecum. There was a small amount of oozing from the mesoappendix, which was cauterized with [place] Ligsure. This staple line on the cecum was hemostatic, and the ileum was free and away from the staple line. Omentum was brought over to cover the cecal staple line remaining mesoappendix. I took 1 final look around the abdomen. There was no welling up of blood or fluid. The bowel, cecum, and omentum were all in good position and looked well perfused and healthy. At this point the insufflation was removed from the abdomen and the umbilical port site was closed with 0 Vicryl suture in the fascia, 3 O Vicryl in the subcutaneous layers, and 4 Monocryl in the skin. The remaining port sites were closed with 4 Monocryl in the skin. Each port site was sealed with Dermabond. Local anesthetic was given at each of the port sites and in the fascia. This concluded the procedure. At this point the needle sponge and instrument counts were correct. The Romero was removed and the appendix was passed off the table for pathology. Patient was awakened from anesthesia and extubated. He was transferred to the postanesthesia care unit in stable condition. Complications: none Post-operative Condition: stable Disposition: Acute Care
[2019-10-23] MEDS: OXYCODONE IR 5 MG TABLET PO ×2 (15:27→21:47)
--- NOTE | 2019-10-23 15:30 | SUR.PHASEI ---
Productive cough, clear sputum. Splinting encouraged.
--- NOTE | 2019-10-23 15:58 | SUR.PHASEI ---
Patient transferred to the floor with belongings bags x2, black fleece jacket and cane. Report given to Niyah. VS stable. Abd sites TORREY, CDI. IV saline locked. Spouse notified patient had been transferred.
[2019-10-23] MEDS: SODIUM CHLORIDE 0.9% 1,000 ML 75 ML IV (16:42)
[2019-10-23] MEDS: ALLOPURINOL 300 MG TABLET PO (20:24)
--- NOTE | 2019-10-23 23:27 | PC.NURSE ---
Admit/Evening Shift Note- Patient arrived to room via bed from pacu. Patient alert and oriented and able to make needs known to staff. Admit questions completed, home medications reviewed, and physical assessment completed. Abdominal lap sites open to air and intact. ice pack to abdomin. patient oriented to bed and bed controls, ;room,lights, phone, menu, and call gerardo/tv remote. safety measures in place. patient agrees to call for assistance. bed alarm set. will continue to monitor.
[2019-10-24 00:37] VITALS: BP 110/62; PULSE 68; RESP 16; TEMP 36.9; O2SAT 96
[2019-10-24 05:43] VITALS: BP 120/62; PULSE 71; RESP 16; TEMP 37.2; O2SAT 98
[2019-10-24] MEDS: SODIUM CHLORIDE 0.9% 1,000 ML 75 ML IV (06:24)
[2019-10-24 07:02] VITALS: PULSE 63; O2SAT 92
[2019-10-24 07:45] VITALS: BP 116/68; PULSE 76; RESP 16; TEMP 37; O2SAT 98
[2019-10-24] MEDS: ACETAMINOPHEN 325 MG TABLET 650 MG PO (08:11)
[2019-10-24] MEDS: DOCUSATE 100 MG CAPSULE PO (08:12)
[2019-10-24] MEDS: OXYCODONE IR 5 MG TABLET PO (08:12)
[2019-10-24] MEDS: ALLOPURINOL 300 MG TABLET PO (08:43)
[2019-10-24 10:05] VITALS: BP 140/79; PULSE 69
--- NOTE | 2019-10-24 10:10 | PC.NURSE ---
Addendum entered by Puja Mcrae R.N. 10/24/19 11:07: Discharge: IV dc'd intact. Reviewed all d/c paperwork and instructions thoroughly with patient and his family. Given hard script for Oxycodone. Instructed to call office Friday/Friday to schedule follow up for 1-2 weeks- instructed to ask about when it would be okay to begin his Indomethacin again (but to hold off taking until he finds out). Verbalized understanding of instructions and stated no further questions. All personal belongings sent with patient at discharge. Wheeled out to private vehicle by nursing staff. Original Note: Shift summary: Alert and oriented X3. Tolerating general diet without N/V. 3 abd lap sites TORREY and well-approximated with skin glue. Voiding without issue. Reports post-op abd pain well-managed with Oxycodone. Ambulated in room using cane with SBA. Denied dizziness or lightheadedness with ambulation, VSS. Has order to discharge home when he feels ready, should be here shortly and patient states he's ready to go home.
[2019-10-24 10:31] VITALS: PULSE 78; O2SAT 95
--- NOTE | 2019-10-24 15:32 | CM.DANOTE ---
DCP Brief Assessment Note Patient is a 68 year old male who was admitted on 10/23/19 for Abd Pain. Pt has MCR and [employer] for insurance and his PCP is Dr. Kiet Kuhn. EMR was reviewed. Per Surgeon, pt with acute appendicitis and tolerated appendectomy well and stable for d/c home today with no identified discharge planning needs. Per RN, pt agreeable with d/c home today via family POV and no concerns at this time. Due to triage needs and no identified d/c planning needs, no bedside assessment completed. Plan: Patient to d/c home today via spouse POV and no SW needs at this time. ROXIE Conklin
== END 2019-10-24 11:11 | disposition home or self-care (01) ==
LOC: ED 10:25 → AC 12:12 → OR 10-24 12:30
PROVIDERS: Emergency Provider Emergency Medicine; PCP Family Medicine; Visit Provider Surgery
PROC: 0DTJ4ZZ Resection of Appendix, Percutaneous Endoscopic Approach (ICD-10-PCS; CPT 44970; principal; 2019-10-23 12:50)
DX: K35.80 Unspecified acute appendicitis (principal); M10.9 Gout, unspecified; I10 Essential (primary) hypertension; G47.33 Obstructive sleep apnea (adult) (pediatric)
CPT/HCPCS: 44970; 36415; 74177; 80053; 81003; 82550; 82553; 83605; 83690; 84484; 85025; 87040; 93005; 94762; 96361; 96365; 99219; 99285; J0330; J1100; J1885; J2405; J2543; J2704; J3010; Q9967

== ENCOUNTER 2020-11-24 07:57 | Emergency (ER) | payer MEDICARE, SELFPAY ==
[2019-10-23 16:24] VITALS: BMI 29.2
[2020-11-24] VITALS (10 sets, daily range): BP systolic 136–177; BP diastolic 77–87; PULSE 98–116; RESP 17–22; TEMP 36.4; O2SAT 91–96; BMI 29.8
--- NOTE | 2020-11-24 08:06 | DI.RAD.S_ITS ---
PROCEDURE: XR CHEST 1V INDICATIONS: chest pain TECHNIQUE: One view of the chest was acquired. COMPARISON: [facility], CR, XR CHEST 1V, 05/22/2018, 13:12. FINDINGS: Surgical changes and devices: None. Lungs and pleura: Lungs are clear. No pleural effusions or pneumothorax. Unchanged elevation of right hemidiaphragm. Mediastinum: Mediastinal contours appear normal. Heart size is normal. Bones and chest wall: No suspicious bony lesions. Overlying soft tissues appear unremarkable. IMPRESSION: No evidence acute pulmonary process. Dictated by: Dima Tejada M.D. on 11/24/2020 at 9:18 Approved by: Dima Tejada M.D. on 11/24/2020 at 9:18
--- NOTE | 2020-11-24 08:14 | ED.CHESTPAIN ---
HPI - Chest Pain General Chief Complaint: Chest Pain Stated Complaint: Chest pains,heart pounding,weakness,nausea,dizzy Time Seen by Provider: 11/24/20 08:05 Source: patient Mode of arrival: Ambulatory Limitations: no limitations History of Present Illness HPI narrative: Patient is 70-year-old male with history of hypertension hyperlipidemia presenting with chest pain and palpitations. He says that he has been having off and on for number of weeks in fact he saw his PCP who scheduled him for an echocardiogram on December 11. However this morning he was walking the dog he got extremely short of breath had some chest discomfort and his legs felt weak and he felt nauseous. And his symptoms resolved with rest. He denies any radiation of pain in his chest. He says that it does feel like a twinge in the center of his chest and he describes it as heaviness. He overall just does not feel like something is right. This morning was the worst that it has been and has progressively gotten worse over the last 3 days. He was started on a new blood pressure medication that starts with I am guessing amlodipine to go with his lisinopril. She denies any fever or cough. No recent travel. MD complaint: chest pain Onset (ago): day(s) (3) Duration: intermittent Onset: during exertion Pain location: substernal Severity: moderate Quality: heaviness Pain radiation: none Relieving factors: nothing Exacerbating factors: movement Related Data Home Medications Medication Instructions Recorded Confirmed lisinopril-hydrochlorothiazide 1 tab PO DAILY 05/22/18 11/09/19 allopurinol 300 mg tablet 300 mg PO BID 06/29/19 11/09/19 Previous Rx's Medication Instructions Recorded docusate sodium 100 mg PO BID #60 cap 10/23/19 oxycodone 5 mg PO Q4HR PRN #30 tab 10/24/19 Allergies Allergy/AdvReac Type Severity Reaction Status Date / Time Bnlnhzu-Clq-Far Reductase AdvReac Unknown Muscle Pain Verified 11/09/19 10:17 Inhibitor Review of Systems Review of Systems Narrative: GENERAL: Denies chills, fatigue, malaise, fever, sweats, travel HEENT: Denies sinus pain, ear pain, sore throat, difficulty swallowing, neck pain RESPIRATORY: Denies dyspnea, cough, wheezing, hemoptysis, sputum. CARDIOVASCULAR: See HPI GASTROINTESTINAL: Denies nausea, vomiting, abdominal pain, diarrhea, constipation, melena. : Denies dysuria, frequency, incontinence, hematuria, urinary retention, flank pain. MUSCULOSKELETAL: Denies weakness, joint pain, or bony pain SKIN: No rash, no erythema, no pruritus NEUROLOGIC: Denies weakness, dizziness, headache, numbness, change in speech, confusion PSYCHIATRIC: No concerning psychosocial issues. 12 point review of systems is negative except for those stated above and HPI Patient History Medical History (Updated 11/24/20 @ 12:[address] DO) Gout Hypertension Insomnia Knee pain Obstructive sleep apnea Social History household members: spouse Smoking Status: Never smoker alcohol intake: current Smoking Status: Never smoker alcohol intake frequency: holidays/special occasions only Alcohol type: hard liquor Substance Use Type: does not use Exam Initial Vital Signs Initial Vital Signs: Vital Signs Temperature 97.6 F 11/24/20 08:05 Pulse Rate 116 H 11/24/20 08:05 Respiratory Rate 22 11/24/20 08:05 Blood Pressure 177/85 H 11/24/20 08:05 Pulse Oximetry 96 11/24/20 08:05 GENERAL: Well-appearing, well-nourished and in no acute distress. HEENT: Head atraumatic,EOMI, pupils reactive, face symmetric, moist mucous membranes CARDIOVASCULAR: Regular rate and rhythm without murmurs, rubs or gallops. RESPIRATORY: Breath sounds equal bilaterally, no wheezes rales or rhonchi. ABDOMEN: Soft, nontender. Normoactive bowel sounds all 4 quadrants. No guarding or rebound. EXTREMITIES: Normal range of motion, no clubbing or edema. Neurovascularly intact NEUROLOGICAL: Alert and oriented x4.Normal gait and speech. Cranial nerves II through XII grossly intact. SKIN: Warm, dry, no laceration, no petechiae, no rashes or lesions. Course Orders Ordered: ED Orders 11/24/20 08:06 XR chest 1V Stat EKG-12 Lead Stat 11/24/20 08:10 Complete Blood Count AUTO DIFF Stat Comprehensive Metabolic Panel Stat Lipase Stat Partial Thromboplastin Time Stat Prothrombin Time INR Stat Troponin & CK Cardiac Panel Stat 11/24/20 08:15 COVID19 Stat 11/24/20 10:00 Troponin I Stat 11/24/20 10:53 D Dimer Stat NT-proBNP (BNP-Adult 18+) Stat Discontinued Medications Aspirin (Aspirin 81 Mg Chew Tab) 324 mg PO NOW ONE Stop: 11/24/20 08:15 Last Admin: 11/24/20 08:20 Dose: 324 mg Documented by: JANIYA Sodium Chloride (Normal Saline 0.9%) 1,000 mls @ 1,000 mls/hr IV BOLUS ONE Stop: 11/24/20 11:47 Last Infusion: 11/24/20 12:19 Dose: 0 mls/hr Documented by: Admin: 11/24/20 11:58 Dose: 1,000 mls/hr Documented by: JANIYA Vital Signs Vital signs: Vital Signs - 8 hr 11/24/20 08:05 11/24/20 08:15 11/24/20 08:30 Temperature 97.6 F Pulse Rate 116 H 100 H 98 H Respiratory Rate 22 19 18 Blood Pressure 177/85 H 161/79 H Pulse Oximetry 96 95 94 11/24/20 09:00 11/24/20 09:30 11/24/20 10:00 Temperature Pulse Rate 100 H 103 H 102 H Respiratory Rate 21 21 20 Blood Pressure 159/77 H 156/77 H 160/81 H Pulse Oximetry 91 91 93 11/24/20 10:30 11/24/20 11:00 11/24/20 11:30 Temperature Pulse Rate 111 H 109 H 108 H Respiratory Rate 20 21 17 Blood Pressure 151/83 H 142/77 H 136/81 Pulse Oximetry 92 93 94 11/24/20 12:00 Temperature Pulse Rate 101 H Respiratory Rate 22 Blood Pressure 147/87 H Pulse Oximetry 94 MDM - Chest Pain Lab Data Attestation: I reviewed the patient's lab results. Result diagrams: 11/24/20 08:10 11/24/20 08:10 Labs: Lab Results 11/24/20 11/24/20 11/24/20 Range/Units 08:10 08:10 08:10 WBC 7.8 (4.5-11.0) X10^3/uL RBC 4.10 L (4.5-5.9) X10^6/uL Hgb 13.9 (13.5-17.5) g/dL Hct 41.4 (41-53) % MCV 101.0 H (80-100) fL MCH 33.9 (26-34) PG MCHC 33.6 (30-36) % RDW 14.7 (11.6-14.8) % Plt Count 220 (150-400) X10^3/uL Neut % (Auto) 62.9 (50-75) % Lymph % (Auto) 24.1 L (25-40) % [place] % (Auto) 8.5 (3-14) % Eos % (Auto) 3.3 (2-4) % Baso % (Auto) 1.2 (0-2) % Neut # (Auto) 4900 (4770-8151) /uL Lymph # (Auto) 1900 (2843-3602) /uL [place] # (Auto) 700 (0-900) /uL Eos # (Auto) 300 (0-450) /uL Baso # (Auto) 100 (0-100) /uL PT 11.3 (10.1-12.7) SECONDS INR 1.0 (0.9-1.3) APTT 31 (26.4-36.2) SECONDS D-Dimer (<230) ng/mL Sodium 137 (137-145) mmol/L Potassium 4.4 (3.4-5.1) mmol/L Chloride 103 (98-107) mmol/L Carbon Dioxide 26 (22-32) mmol/L BUN 26 H (9-20) mg/dL Creatinine 0.85 (0.66-1.25) mg/dL Estimated GFR > 60.0 (>60) mL/min BUN/Creatinine Ratio 30.6 H (6-22) Glucose 123 H (80-110) mg/dL Calcium 9.5 (8.4-10.2) mg/dL Total Bilirubin 0.3 (0.2-1.3) mg/dL AST 35 (17-59) IU/L ALT 34 (<50) IU/L Alkaline Phosphatase 74 (38-126) U/L Total Creatine Kinase 254 H (55-170) U/L CK-MB (CK-2) 4.32 H (<2.37) ng/mL CK-MB (CK-2) Rel Index 1.7 (1.5-5.0) % Troponin I < 0.012 (0.01-0.034) ng/mL NT-Pro-B Natriuret Pep (<125) pg/mL Total Protein 7.6 (6.3-8.2) g/dL Albumin 4.6 (3.5-5.0) g/dL Globulin 3.0 (1.7-4.1) g/dL Albumin/Globulin Ratio 1.5 (1.0-2.8) Lipase 75 (23-300) U/L SARS-CoV-2 (PCR) (Negative) 11/24/20 11/24/20 11/24/20 Range/Units 08:15 10:00 10:53 WBC (4.5-11.0) X10^3/uL RBC (4.5-5.9) X10^6/uL Hgb (13.5-17.5) g/dL Hct (41-53) % MCV (80-100) fL MCH (26-34) PG MCHC (30-36) % RDW (11.6-14.8) % Plt Count (150-400) X10^3/uL Neut % (Auto) (50-75) % Lymph % (Auto) (25-40) % [place] % (Auto) (3-14) % Eos % (Auto) (2-4) % Baso % (Auto) (0-2) % Neut # (Auto) (1573-5934) /uL Lymph # (Auto) (6802-4445) /uL [place] # (Auto) (0-900) /uL Eos # (Auto) (0-450) /uL Baso # (Auto) (0-100) /uL PT (10.1-12.7) SECONDS INR (0.9-1.3) APTT (26.4-36.2) SECONDS D-Dimer 263 H (<230) ng/mL Sodium (137-145) mmol/L Potassium (3.4-5.1) mmol/L Chloride (98-107) mmol/L Carbon Dioxide (22-32) mmol/L BUN (9-20) mg/dL Creatinine (0.66-1.25) mg/dL Estimated GFR (>60) mL/min BUN/Creatinine Ratio (6-22) Glucose (80-110) mg/dL Calcium (8.4-10.2) mg/dL Total Bilirubin (0.2-1.3) mg/dL AST (17-59) IU/L ALT (<50) IU/L Alkaline Phosphatase (38-126) U/L Total Creatine Kinase (55-170) U/L CK-MB (CK-2) (<2.37) ng/mL CK-MB (CK-2) Rel Index (1.5-5.0) % Troponin I < 0.012 (0.01-0.034) ng/mL NT-Pro-B Natriuret Pep (<125) pg/mL Total Protein (6.3-8.2) g/dL Albumin (3.5-5.0) g/dL Globulin (1.7-4.1) g/dL Albumin/Globulin Ratio (1.0-2.8) Lipase (23-300) U/L SARS-CoV-2 (PCR) Negative (Negative) 11/24/20 Range/Units 10:53 WBC (4.5-11.0) X10^3/uL RBC (4.5-5.9) X10^6/uL Hgb (13.5-17.5) g/dL Hct (41-53) % MCV (80-100) fL MCH (26-34) PG MCHC (30-36) % RDW (11.6-14.8) % Plt Count (150-400) X10^3/uL Neut % (Auto) (50-75) % Lymph % (Auto) (25-40) % [place] % (Auto) (3-14) % Eos % (Auto) (2-4) % Baso % (Auto) (0-2) % Neut # (Auto) (3742-1436) /uL Lymph # (Auto) (4326-5939) /uL [place] # (Auto) (0-900) /uL Eos # (Auto) (0-450) /uL Baso # (Auto) (0-100) /uL PT (10.1-12.7) SECONDS INR (0.9-1.3) APTT (26.4-36.2) SECONDS D-Dimer (<230) ng/mL Sodium (137-145) mmol/L Potassium (3.4-5.1) mmol/L Chloride (98-107) mmol/L Carbon Dioxide (22-32) mmol/L BUN (9-20) mg/dL Creatinine (0.66-1.25) mg/dL Estimated GFR (>60) mL/min BUN/Creatinine Ratio (6-22) Glucose (80-110) mg/dL Calcium (8.4-10.2) mg/dL Total Bilirubin (0.2-1.3) mg/dL AST (17-59) IU/L ALT (<50) IU/L Alkaline Phosphatase (38-126) U/L Total Creatine Kinase (55-170) U/L CK-MB (CK-2) (<2.37) ng/mL CK-MB (CK-2) Rel Index (1.5-5.0) % Troponin I (0.01-0.034) ng/mL NT-Pro-B Natriuret Pep 23 (<125) pg/mL Total Protein (6.3-8.2) g/dL Albumin (3.5-5.0) g/dL Globulin (1.7-4.1) g/dL Albumin/Globulin Ratio (1.0-2.8) Lipase (23-300) U/L SARS-CoV-2 (PCR) (Negative) Imaging Data Chest x-ray: Radiologist's Impression: PROCEDURE: XR CHEST 1V INDICATIONS: chest pain TECHNIQUE: One view of the chest was acquired. COMPARISON: [facility], , XR CHEST 1V, 05/22/2018, 13:12. FINDINGS: Surgical changes and devices: None. Lungs and pleura: Lungs are clear. No pleural effusions or pneumothorax. Unchanged elevation of right hemidiaphragm. Mediastinum: Mediastinal contours appear normal. Heart size is normal. Bones and chest wall: No suspicious bony lesions. Overlying soft tissues appear unremarkable. IMPRESSION: No evidence acute pulmonary process. Dictated by: Dima Tejada M.D. on 11/24/2020 at 9:18 Approved by: Dima Tejada M.D. on 11/24/2020 at 9:18 ECG Data Attestation: I personally reviewed and interpreted this ECG as follows: Prior ECG tracings: available for review Interpretation: Normal sinus rhythm rate 83 p.r. interval 188 QRS 1 wound 9 Q-wave noted in lead [address] changes incomplete right bundle EKG 2. Sinus rhythm rate [address] changes similar to previous EKG MDM Narrative Medical decision making narrative: Patient remains chest pain-free in the ED however he is sinus tachycardic rate 100-110. D-dimer is negative I do not suspect PE at this time. He is started on some IV fluids which do seem to help. Patient is having concerning escalating worsening symptoms ongoing for the last 3 days. I have tried to arrange for stress test today here at this hospital unfortunately patient had coffee and ate breakfast and this is unable to be scheduled. Stress test is not available over the weekend 11:[address] Borja cardiology updated patient's symptoms test results agrees with need for stress test 1125 Dr. Christian hospitalist updated patient's symptoms test results agrees with transfer Critical Care Time Critical Care Time Critical Care Time: Yes Total Critical Care Time: 30 Attestation: The high probability of a clinically significant, sudden or life threatening deterioration of the [cardiovascular] system(s) required my full and direct attention, intervention and personal management. The aggregate critical care time was 30 minutes. This time is in addition to time spent performing reported procedures but includes the following: [x] Data Review and interpretation [x] Patient assessment and monitoring of vital signs [x] Documentation [x] Medication orders and management Discharge Plan Departure Patient Disposition: [facility] Clinical Impression: Chest pain Prescriptions: No Action lisinopril-hydrochlorothiazide 20-12.5 mg tablet 1 tab PO DAILY RF: 0 docusate sodium 100 mg capsule 100 mg PO BID Qty: 60 RF: 0 oxycodone 5 mg Tablet 5 mg PO Q4HR PRN (Reason: Pain, Moderate (4-6)) Qty: 30 RF: 0 allopurinol 300 mg tablet 300 mg PO BID RF: 0
[2020-11-24] MEDS: ASPIRIN 81 MG CHEW TAB 324 MG PO (08:20)
[2020-11-24 08:22] LABS: Add Manual Diff / Slide Review NO; Basophils Absolute Auto 100 /uL (0-100); Basophils Percent Auto 1.2 % (0-2); Eosinophils Absolute Auto 300 /uL (0-450); Eosinophils Percent Auto 3.3 % (2-4); Hematocrit 41.4 % (41-53); Hemoglobin 13.9 g/dL (13.5-17.5); Lymphocytes Absolute Auto 1900 /uL (1100-4500); Lymphocytes Percent Auto 24.1 % (25-40); Mean Corpuscular HGB Conc 33.6 % (30-36); Mean Corpuscular Hemoglobin 33.9 PG (26-34); Monocytes Absolute Auto 700 /uL (0-900); Monocytes Percent Auto 8.5 % (3-14); Neutrophils Absolute Auto 4900 /uL (1500-7000); Neutrophils Percent Auto 62.9 % (50-75); Platelet Count 220 X10^3/uL (150-400); Red Cell Distribution Width 14.7 % (11.6-14.8); White Blood Cell Count 7.8 X10^3/uL (4.5-11.0)
[2020-11-24 08:29] LABS: Prothrombin Time 11.3 SECONDS (10.1-12.7)
[2020-11-24 08:32] LABS: PTT Partial Thromboplastin Tim 31 SECONDS (26.4-36.2)
[2020-11-24 08:33] LABS: Alanine Aminotransferase 34 IU/L (<50); Albumin 4.6 g/dL (3.5-5.0); Albumin Globulin Ratio 1.5 (1.0-2.8); Alkaline Phosphatase 74 U/L (38-126); Aspartate Aminotransferase 35 IU/L (17-59); BUN Creatinine Ratio 30.6 (6-22); Bilirubin Total 0.3 mg/dL (0.2-1.3); Blood Urea Nitrogen 26 mg/dL (9-20); Calcium 9.5 mg/dL (8.4-10.2); Carbon Dioxide 26 mmol/L (22-32); Chloride 103 mmol/L (98-107); Creatine Kinase 254 U/L (55-170); Estimated Glomerular Filt Rate > 60.0 mL/min (>60); Glucose 123 mg/dL (80-110); HEMOLYSIS < 15 (0-50); Lipase 75 U/L (23-300); Potassium 4.4 mmol/L (3.4-5.1); Sodium 137 mmol/L (137-145); Total Protein 7.6 g/dL (6.3-8.2)
[2020-11-24 08:46] LABS: Troponin I < 0.012 ng/mL (0.01-0.034)
[2020-11-24 08:49] LABS: CKMB % Relative Index 1.7 % (1.5-5.0); Creatine Kinase MB 4.32 ng/mL (<2.37)
[2020-11-24 09:50] LABS: COVID19 -Nasal RAPID Negative (Negative)
[2020-11-24 10:29] LABS: Troponin I < 0.012 ng/mL (0.01-0.034)
[2020-11-24 11:04] LABS: D Dimer 263 ng/mL (<230)
[2020-11-24 11:11] LABS: NT-proBNP (BNP-Adult 18+) 23 pg/mL (<125)
[2020-11-24] MEDS: SODIUM CHLORIDE 0.9% 1,000 ML 1000 ML IV (11:58)
== END 2020-11-24 12:19 | disposition short-term general hospital (02) ==
PROVIDERS: Emergency Provider Emergency Medicine; Referring Provider Emergency Medicine
DX: R07.9 Chest pain, unspecified (principal); R00.0 Tachycardia, unspecified; R00.2 Palpitations; R11.0 Nausea; R06.02 Shortness of breath; I10 Essential (primary) hypertension; Z20.822 Contact with and (suspected) exposure to COVID-19
CPT/HCPCS: 36415; 71045; 80053; 82550; 82553; 83690; 83880; 84484; 85025; 85379; 85610; 85730; 87635; 93005; 93010; 99284; 99291; C9803

== ENCOUNTER → 2020-12-07 09:35 | Outpatient (CLI) | payer MEDICARE, SELFPAY ==
[2019-10-23 16:24] VITALS: BMI 29.2
--- NOTE | 2020-12-21 16:47 | P.HOLT.S_ITS ---
[employer] [employer] Report Referral & Results Date Patient Seen: 12/07/20 Requesting provider: Sheryl Damian Indication: Tachycardia Duration of monitoring (days): 5 Diary information: There were 8 patient triggered events and 8 patient diary entries All of these patient events were associated with (within 45 seconds) sinus rhythm and PACs Data: Minimum heart rate identified was 50 beats per minute at 04:37 on 12/11/2020 Maximum sinus heart rate was 142 beats per minute at 14:38 on 12/11/2020 Maximum overall heart rate was 174 beats per minute at 03:17 on 12/09/2020 during a 6 beat run of SVT Less than 1% of identified beats rather ventricular supraventricular ectopic in origin does classifying these as rare T there were 4 runs of SVT the longest lasting 7 beats at a rate of 149 beats per minute Overall patient was not excessively tachycardic with heart rates greater than 100 during only limited portions of the monitoring period. Impression: 5 day air sampling and monitoring showing very rare and very short runs of SVT as well as rare PACs Clinical correlation suggested
== END ==
PROVIDERS: PCP Internal Medicine; Referring Provider Internal Medicine; Visit Provider Internal Medicine
DX: R00.0 Tachycardia, unspecified (principal); R07.89 Other chest pain; I45.19 Other right bundle-branch block; I10 Essential (primary) hypertension
CPT/HCPCS: 93242; 93244

== ENCOUNTER 2022-04-26 07:12 | Inpatient (IN) | payer MEDICARE, SELFPAY ==
[2019-10-23 16:24] VITALS: BMI 29.2
[2022-04-26] VITALS (85 sets, daily range): BP systolic 96–146; BP diastolic 52–64; PULSE 47–128; RESP 13–36; TEMP 36.7–37.2; O2SAT 90–99; BMI 28.0
--- NOTE | 2022-04-26 07:31 | ED.WEAKNESS ---
HPI - Weakness General Chief complaint: Weakness Stated complaint: limbs not working ,trouble breathing Time Seen by Provider: 04/26/22 07:15 Source: patient Mode of arrival: Wheelchair History of Present Illness HPI Narrative: Mr. Gabriel is a 71-year-old man who comes in with intermittent weakness. He says this has been going on for the better part of a year. He seen his doctor about it with no discrete diagnosis having been arrived upon. He has hypercholesterolemia and hypertension and sometimes he says he has a heart rhythm problem that he cannot specify, but he can not really say when these symptoms are more likely to occur. They seem much more frequent over the past couple of weeks. He wonders if it might be related to some pain in his upper thoracic spine. He says what happens is a wave of weakness and tremor comes upon him and he is unable to lift his arms and legs bilaterally. He says he has fallen once because of this. He says it recovers completely and is back to normal but then it will recur. This morning when he woke up he was unable to get out of bed he feels like he has to exert himself dramatically just to move his arms or legs a little bit. It is not associated with fever, cough, nausea, vomiting, diarrhea or any other systemic symptoms of illness. He does not have chest pain or abdominal pain or pain in his limbs but feels a great effort to move his arms and legs as if he is doing a dramatic workout he says. His doctor has tried altering the diet to exclude dairy and other things to see if this made a difference but as far as Mr. Francis can say, no difference. I spoke to his who arrives shortly after patient's arrival. She describes him standing in the doorway tremulous and sweaty yesterday and falling to the ground hitting his head. He says these events can last many hours or days and the current event is been going on for days in a row just worse at times. He says when it is very intense he has tingling and numbness around his tongue and mouth and his hands become very tremulous and sweaty. It does not ever go away completely and he started using a cane this past 2 weeks so as to keep himself from falling. Related Data Home Medications Medication Instructions Recorded Confirmed lisinopril 20 1 tab PO BID 05/22/18 04/26/22 mg-hydrochlorothiazide 12.5 mg tablet allopurinol 300 mg tablet 300 mg PO BID 06/29/19 04/26/22 amlodipine 10 mg tablet 10 mg PO DAILY 04/26/22 04/26/22 atorvastatin 20 mg tablet 20 mg PO DAILY 04/26/22 04/26/22 metoprolol succinate 50 mg 50 mg PO BID 04/26/22 04/26/22 tablet,extended release 24 hr spironolactone 50 mg tablet 50 mg PO BID 04/26/22 04/26/22 Allergies Allergy/AdvReac Type Severity Reaction Status Date / Time Ctmjzfi-NRT-IvI Reductase AdvReac Unknown Muscle Pain Verified 11/09/19 10:17 Inhibitor [Ctuturf-Whc-Alv Reductase Inhibitor] Review of Systems Review of Systems Narrative: Complete review of systems is negative other than as noted above. Patient History Medical History (Updated 04/26/22 @ 16:39 by Jay Martínez MD) Gout Hypertension Insomnia Knee pain Obstructive sleep apnea Social History household members: spouse Smoking Status: Never smoker alcohol intake: current Smoking Status: Never smoker alcohol intake frequency: holidays/special occasions only Alcohol type: hard liquor Substance Use Type: does not use Exam Narrative Exam Narrative: GENERAL: Alert, cooperative and in no distress. HEAD: Atraumatic. Normocephalic. EYES: Sclera are clear without icterus. Extraocular movements are full. ENT: No rhinorrhea. Oropharynx is moist. Mouth exam is benign. NECK: Supple. Full range of motion. CARDIOVASCULAR: Normal rate and rhythm without murmur gallop or rub. RESPIRATORY: Clear to auscultation. Breath sounds equal bilaterally. No wheezes, rales, or rhonchi. GASTROINTESTINAL: Abdomen soft, non-tender, nondistended. EXTREMITIES: No edema, full range of motion. No obvious trauma. When he tries to lift his arms and legs he exclaims: ?I can't, I can't?, yet he can but it appears to be a great effort to do so. He is unable to bend his knees completely but I can certainly passively range his knees. BACK: Normal inspection, no CVA tenderness. NEURO: Nonfocal examination, normal speech, normal gait. Complete NIH neuro exam is normal with a score of 0. SKIN: No rash or erythema of visible areas PSYCH: Normally oriented. Normal range of affect. Appropriate behavior Repeat exam at 7:55 a.m. reveals diaphoresis of the palms. He can lift his arms and legs off the bed but only briefly. He becomes very tremulous and appears to cause a great effort to do so. Initial Vital Signs Initial Vital Signs: Vital Signs Temperature 98.1 F 04/26/22 07:13 Pulse Rate 65 04/26/22 07:13 Respiratory Rate 20 04/26/22 07:13 Blood Pressure 146/64 H 04/26/22 07:13 Pulse Oximetry 95 04/26/22 07:13 Oxygen Delivery Method 04/26/22 07:13 Course Orders Ordered: ED Orders 04/26/22 07:36 EKG-12 Lead Stat 04/26/22 07:58 CT head/brain wo con Stat 04/26/22 08:00 XR chest 1V Stat 04/26/22 08:15 COVID19 -Nasal RAPID/Pre-Proc Stat 04/26/22 08:22 Troponin I Stat 04/26/22 08:25 Potassium Stat 04/26/22 09:00 EKG-12 Lead Stat 04/26/22 09:32 EKG-12 Lead Stat 04/26/22 10:09 VBG [Venous Blood Gas] Stat 04/26/22 10:54 Urinalysis and Microscopic Stat 04/26/22 11:40 BMP [Basic Metabolic Panel] Q4H BNP [NT-proBNP (BNP-Adult 18+)] Urgent CPK [Creatine Kinase] Stat 04/26/22 13:25 EKG-12 Lead Stat 04/26/22 14:58 BMP [Basic Metabolic Panel] Q4H 04/26/22 15:03 EC echo doppler complete Stat 04/26/22 19:00 BMP [Basic Metabolic Panel] Q4H 04/26/22 23:00 BMP [Basic Metabolic Panel] Q4H 04/27/22 05:00 BMP [Basic Metabolic Panel] DAILY CBC Auto Diff [Complete Blood Count AUTO DIFF] DAILY 04/28/22 05:00 BMP [Basic Metabolic Panel] DAILY CBC Auto Diff [Complete Blood Count AUTO DIFF] DAILY 04/29/22 05:00 BMP [Basic Metabolic Panel] DAILY CBC Auto Diff [Complete Blood Count AUTO DIFF] DAILY Acetaminophen (Acetaminophen 325 Mg Tablet) 650 mg PO Q6HR PRN PRN Reason: Fever/Mild Pain (1-3) Dextrose (D10w) 1,000 mls @ 150 mls/hr IV CONT ANYA Last Infusion: 04/26/22 16:34 Dose: 75 mls/hr Documented By: Infusion: 04/26/22 16:00 Dose: 0 mls/hr Documented By: Infusion: 04/26/22 15:28 Dose: 75 mls/hr Documented By: Infusion: 04/26/22 14:48 Dose: 150 mls/hr Documented By: Infusion: 04/26/22 14:39 Dose: 999 mls/hr Documented By: Infusion: 04/26/22 13:39 Dose: 75 mls/hr Documented By: Infusion: 04/26/22 11:15 Dose: 0 mls/hr Documented By: Admin: 04/26/22 08:37 Dose: 150 mls/hr Documented By: GELA Sodium Bicarbonate 150 meq/ (Dextrose) 1,150 mls @ 150 mls/hr IV CONT ANYA Last Admin: 04/26/22 10:04 Dose: 150 mls/hr Documented By: ROSEY Dextrose (D10w) 1,000 mls @ 75 mls/hr IV CONT ANYA Stop: 04/26/22 19:29 Discontinued Medications Albuterol (Albuterol 2.5 Mg/3 Ml Neb (Adult)) 2.5 mg INH NOW ONE Stop: 04/26/22 08:16 Last Admin: 04/26/22 08:20 Dose: 2.5 mg Documented By: GELA Albuterol (Albuterol 2.5 Mg/3 Ml Neb (Adult)) 10 mg INH NOW ONE Stop: 04/26/22 08:43 Last Admin: 04/26/22 08:45 Dose: 10 mg Documented By: ROSEY Albuterol (Albuterol 2.5 Mg/3 Ml Neb (Adult)) 20 mg INH NOW ONE Stop: 04/26/22 13:30 Last Admin: 04/26/22 14:15 Dose: 20 mg Documented By: ABIOLA Calcium Chloride (Calcium Chloride 1,000 Mg/10 Ml Syringe) 1,000 mg IV NOW ONE Stop: 04/26/22 08:16 Last Admin: 04/26/22 08:25 Dose: 1,000 mg Documented By: GELA Dextrose (Dextrose 50 % In Water 25 Gm/50 Ml Syringe) 25 gm IV NOW ONE Stop: 04/26/22 13:25 Last Admin: 04/26/22 14:20 Dose: Not Given Documented By: ABIOLA Enoxaparin Sodium (Enoxaparin 100 Mg/Ml Syringe) 90 mg SUBCUT NOW ONE Stop: 04/26/22 11:31 Last Admin: 04/26/22 11:38 Dose: 90 mg Documented By: ROSEY Furosemide (Furosemide 40 Mg/4 Ml Vial) 40 mg IV NOW ONE Stop: 04/26/22 10:38 Last Admin: 04/26/22 12:27 Dose: Not Given Documented By: ROSEY Furosemide (Furosemide 100 Mg/10 Ml Vial) 80 mg IV NOW ONE Stop: 04/26/22 12:01 Last Admin: 04/26/22 12:46 Dose: 80 mg Documented By: ROSEY Sodium Chloride (Normal Saline 0.9%) 1,000 mls @ 1,000 mls/hr IV BOLUS ONE Stop: 04/26/22 09:14 Last Infusion: 04/26/22 09:33 Dose: 0 mls/hr Documented By: Admin: 04/26/22 08:25 Dose: 1,000 mls/hr Documented By: GELA Sodium Chloride (Normal Saline 0.9%) 1,000 mls @ 1,000 mls/hr IV BOLUS ONE Stop: 04/26/22 13:01 Last Admin: 04/26/22 12:49 Dose: 1,000 mls/hr Documented By: ROSEY Calcium Gluconate 9.3 meq/ (Sodium Chloride) 70 mls @ 140 mls/hr IV NOW ONE Stop: 04/26/22 13:53 Last Admin: 04/26/22 14:01 Dose: 140 mls/hr Documented By: ABIOLA Insulin Human Regular (Insulin Regular 100 Unit/Ml 3 Ml Vial) 5 unit IV NOW ONE Stop: 04/26/22 08:16 Last Admin: 04/26/22 08:37 Dose: 5 unit Documented By: GELA Co-signed By: ROSEY Insulin Human Regular (Insulin Regular 100 Unit/Ml 3 Ml Vial) 10 unit IV NOW ONE Stop: 04/26/22 13:25 Last Admin: 04/26/22 14:02 Dose: 10 unit Documented By: ABIOLA Co-signed By: LASHAWN Ondansetron HCl (Ondansetron 4 Mg/2 Ml Inj) 4 mg IV NOW ONE Stop: 04/26/22 08:41 Last Admin: 04/26/22 08:53 Dose: 4 mg Documented By: ROSEY Sodium Bicarbonate (Sodium Bicarb 8.4% Syringe) 95 meq 1 meq/kg (95 meq) IV NOW ONE Stop: 04/26/22 09:03 Last Admin: 04/26/22 09:21 Dose: 95 meq Documented By: ROSEY Sodium Polystyrene Sulfonate (Sodium Polystyrene Sulfon/Sorb 15 Gm/60 Ml Cup) 30 gm PO NOW ONE Stop: 04/26/22 08:16 Last Admin: 04/26/22 08:57 Dose: 30 gm Documented By: ROSEY Vital Signs Vital signs: Vital Signs - 8 hr 04/26/22 08:45 04/26/22 09:00 04/26/22 09:01 Pulse Rate Respiratory Rate 27 H 20 Blood Pressure 115/53 L Pulse Oximetry 90 L 96 Oxygen Delivery Method Room Air [place] Nasal Cannula Simple Mask Oxygen Flow Rate 10 04/26/22 09:01 04/26/22 09:15 04/26/22 09:30 Pulse Rate 79 Respiratory Rate 22 18 Blood Pressure 128/57 L Pulse Oximetry 95 90 L Oxygen Delivery Method Nasal Cannula Nasal Cannula Oxygen Flow Rate 2 2 04/26/22 09:30 04/26/22 09:45 04/26/22 10:00 Pulse Rate 75 72 92 H Respiratory Rate 25 H 28 H 36 H Blood Pressure Pulse Oximetry 92 94 94 Oxygen Delivery Method Nasal Cannula Nasal Cannula Oxygen Flow Rate 2 6 04/26/22 10:01 04/26/22 10:01 04/26/22 10:15 Pulse Rate 89 85 Respiratory Rate 14 Blood Pressure 134/60 Pulse Oximetry 93 95 Oxygen Delivery Method Nasal Cannula Oxygen Flow Rate 6 04/26/22 10:30 04/26/22 10:30 04/26/22 10:45 Pulse Rate 85 99 H Respiratory Rate Blood Pressure 118/57 L Pulse Oximetry 95 91 Oxygen Delivery Method Nasal Cannula Oxygen Flow Rate 2 04/26/22 11:00 04/26/22 11:00 04/26/22 11:15 Pulse Rate 91 H 91 H Respiratory Rate Blood Pressure 125/60 Pulse Oximetry 93 93 Oxygen Delivery Method Oxygen Flow Rate 04/26/22 11:30 04/26/22 11:30 04/26/22 11:45 Pulse Rate 85 80 Respiratory Rate 23 Blood Pressure 127/61 Pulse Oximetry 92 92 Oxygen Delivery Method Nasal Cannula Oxygen Flow Rate 2 04/26/22 12:29 04/26/22 12:00 04/26/22 12:00 Pulse Rate 84 83 Respiratory Rate Blood Pressure 133/60 Pulse Oximetry 93 93 Oxygen Delivery Method Nasal Cannula Oxygen Flow Rate 2 04/26/22 12:15 04/26/22 12:30 04/26/22 12:45 Pulse Rate 82 96 H 95 H Respiratory Rate 23 23 Blood Pressure Pulse Oximetry 93 95 Oxygen Delivery Method Nasal Cannula Oxygen Flow Rate 2 04/26/22 12:51 04/26/22 12:51 04/26/22 13:00 Pulse Rate 96 H Respiratory Rate 20 Blood Pressure 121/64 115/57 L Pulse Oximetry 94 Oxygen Delivery Method Oxygen Flow Rate 04/26/22 13:00 04/26/22 13:15 04/26/22 13:30 Pulse Rate 85 90 Respiratory Rate 23 33 H Blood Pressure 109/54 L Pulse Oximetry 94 96 Oxygen Delivery Method Oxygen Flow Rate 04/26/22 13:30 04/26/22 13:45 04/26/22 14:00 Pulse Rate 89 79 Respiratory Rate 24 20 Blood Pressure 121/57 L Pulse Oximetry 94 95 Oxygen Delivery Method Oxygen Flow Rate 04/26/22 14:00 04/26/22 14:15 04/26/22 14:30 Pulse Rate 77 78 Respiratory Rate 27 H 21 Blood Pressure 113/57 L Pulse Oximetry 96 97 Oxygen Delivery Method Nasal Cannula Oxygen Flow Rate 3 04/26/22 14:30 04/26/22 14:45 04/26/22 15:00 Pulse Rate 94 H 94 H 92 H Respiratory Rate 24 21 20 Blood Pressure Pulse Oximetry 96 97 97 Oxygen Delivery Method Nasal Cannula Oxygen Flow Rate 3 04/26/22 15:15 04/26/22 15:30 04/26/22 15:45 Pulse Rate 96 H 100 H 106 H Respiratory Rate 22 21 24 Blood Pressure Pulse Oximetry 91 99 99 Oxygen Delivery Method Oxygen Flow Rate 04/26/22 15:49 04/26/22 15:49 Pulse Rate 101 H Respiratory Rate 16 Blood Pressure 118/54 L Pulse Oximetry 99 Oxygen Delivery Method Oxygen Flow Rate MDM - Weakness Lab Data Result diagrams: 04/26/22 07:23 04/26/22 14:58 Labs: Lab Results 04/26/22 04/26/22 04/26/22 Range/Units 07:23 07:23 07:23 WBC 13.0 H (4.5-11.0) X10^3/uL RBC 3.37 L (4.5-5.9) X10^6/uL Hgb 11.5 L (13.5-17.5) g/dL Hct 35.3 L (41-53) % MCV 104.8 H (80-100) fL MCH 34.3 H (26-34) PG MCHC 32.7 (30-36) % RDW 15.1 H (11.6-14.8) % Plt Count 246 (150-400) X10^3/uL Neut % (Auto) 74.8 (50-75) % Lymph % (Auto) 13.3 L (25-40) % [place] % (Auto) 10.1 (3-14) % Eos % (Auto) 1.1 L (2-4) % Baso % (Auto) 0.7 (0-2) % Neut # (Auto) 9700 H (4769-9903) /uL Lymph # (Auto) 1700 (1397-8182) /uL [place] # (Auto) 1300 H (0-900) /uL Eos # (Auto) 100 (0-450) /uL Baso # (Auto) 100 (0-100) /uL VBG pH (7.33-7.43) VBG pCO2 (45-50) mmHg VBG pO2 (35-45) mmHg VBG HCO3 (23-28) mmol/L VBG Total CO2 (24-29) mmol/L VBG O2 Saturation (70-75) % VBG Base Excess (0-4) mmol/L Sodium 131 L (137-145) mmol/L Potassium 8.1 H* (3.4-5.1) mmol/L Chloride 107 (98-107) mmol/L Carbon Dioxide 12 L (22-32) mmol/L BUN 46 H (9-20) mg/dL Creatinine 2.48 H (0.66-1.25) mg/dL Estimated GFR 27 L (>60) mL/min BUN/Creatinine Ratio 18.5 (6-22) Glucose 123 H (80-110) mg/dL Lactate 0.9 (0.7-2.1) mmol/L Calcium 9.2 (8.4-10.2) mg/dL Total Bilirubin 0.5 (0.2-1.3) mg/dL AST 28 (17-59) IU/L ALT 17 (<50) IU/L Alkaline Phosphatase 70 (38-126) U/L Total Creatine Kinase (55-170) U/L Troponin I (0.01-0.034) ng/mL NT-Pro-B Natriuret Pep (<125) pg/mL Total Protein 7.4 (6.3-8.2) g/dL Albumin 4.5 (3.5-5.0) g/dL Globulin 2.9 (1.7-4.1) g/dL Albumin/Globulin Ratio 1.6 (1.0-2.8) Urine Color Urine Appearance Urine pH (4.5-8.0) Ur Specific [place] (1.000-1.035) Urine Protein (Negative) Urine Glucose (UA) (Negative) g/dL Urine Ketones (NEGATIVE) Urine Occult Blood (Negative) Urine Nitrate (Negative) Urine Bilirubin (NEGATIVE) Urine Urobilinogen (0.2) E.U./dL Ur Leukocyte Esterase (NEGATIVE) Urine RBC (0-5/HPF) Urine WBC (0-5/HPF) Ur Squamous Epith Cells (0-5/HPF) Urine Bacteria (None) Ur Culture Indicated? SARS-CoV-2 (PCR) (Negative) 04/26/22 04/26/22 04/26/22 Range/Units 08:15 08:22 08:25 WBC (4.5-11.0) X10^3/uL RBC (4.5-5.9) X10^6/uL Hgb (13.5-17.5) g/dL Hct (41-53) % MCV (80-100) fL MCH (26-34) PG MCHC (30-36) % RDW (11.6-14.8) % Plt Count (150-400) X10^3/uL Neut % (Auto) (50-75) % Lymph % (Auto) (25-40) % [place] % (Auto) (3-14) % Eos % (Auto) (2-4) % Baso % (Auto) (0-2) % Neut # (Auto) (6513-3471) /uL Lymph # (Auto) (4827-1565) /uL [place] # (Auto) (0-900) /uL Eos # (Auto) (0-450) /uL Baso # (Auto) (0-100) /uL VBG pH (7.33-7.43) VBG pCO2 (45-50) mmHg VBG pO2 (35-45) mmHg VBG HCO3 (23-28) mmol/L VBG Total CO2 (24-29) mmol/L VBG O2 Saturation (70-75) % VBG Base Excess (0-4) mmol/L Sodium (137-145) mmol/L Potassium 9.0 H* (3.4-5.1) mmol/L Chloride (98-107) mmol/L Carbon Dioxide (22-32) mmol/L BUN (9-20) mg/dL Creatinine (0.66-1.25) mg/dL Estimated GFR (>60) mL/min BUN/Creatinine Ratio (6-22) Glucose (80-110) mg/dL Lactate (0.7-2.1) mmol/L Calcium (8.4-10.2) mg/dL Total Bilirubin (0.2-1.3) mg/dL AST (17-59) IU/L ALT (<50) IU/L Alkaline Phosphatase (38-126) U/L Total Creatine Kinase (55-170) U/L Troponin I < 0.012 (0.01-0.034) ng/mL NT-Pro-B Natriuret Pep (<125) pg/mL Total Protein (6.3-8.2) g/dL Albumin (3.5-5.0) g/dL Globulin (1.7-4.1) g/dL Albumin/Globulin Ratio (1.0-2.8) Urine Color Urine Appearance Urine pH (4.5-8.0) Ur Specific [place] (1.000-1.035) Urine Protein (Negative) Urine Glucose (UA) (Negative) g/dL Urine Ketones (NEGATIVE) Urine Occult Blood (Negative) Urine Nitrate (Negative) Urine Bilirubin (NEGATIVE) Urine Urobilinogen (0.2) E.U./dL Ur Leukocyte Esterase (NEGATIVE) Urine RBC (0-5/HPF) Urine WBC (0-5/HPF) Ur Squamous Epith Cells (0-5/HPF) Urine Bacteria (None) Ur Culture Indicated? SARS-CoV-2 (PCR) Negative (Negative) 04/26/22 04/26/22 04/26/22 Range/Units 10:09 10:54 11:40 WBC (4.5-11.0) X10^3/uL RBC (4.5-5.9) X10^6/uL Hgb (13.5-17.5) g/dL Hct (41-53) % MCV (80-100) fL MCH (26-34) PG MCHC (30-36) % RDW (11.6-14.8) % Plt Count (150-400) X10^3/uL Neut % (Auto) (50-75) % Lymph % (Auto) (25-40) % [place] % (Auto) (3-14) % Eos % (Auto) (2-4) % Baso % (Auto) (0-2) % Neut # (Auto) (4817-0746) /uL Lymph # (Auto) (8303-7825) /uL [place] # (Auto) (0-900) /uL Eos # (Auto) (0-450) /uL Baso # (Auto) (0-100) /uL VBG pH 7.27 L (7.33-7.43) VBG pCO2 35.8 L (45-50) mmHg VBG pO2 66 H (35-45) mmHg VBG HCO3 17 L (23-28) mmol/L VBG Total CO2 18 L (24-29) mmol/L VBG O2 Saturation 90 H (70-75) % VBG Base Excess -10.0 L (0-4) mmol/L Sodium 133 L (137-145) mmol/L Potassium 7.2 H* D (3.4-5.1) mmol/L Chloride 109 H (98-107) mmol/L Carbon Dioxide 17 L (22-32) mmol/L BUN 43 H (9-20) mg/dL Creatinine 2.06 H (0.66-1.25) mg/dL Estimated GFR 33 L (>60) mL/min BUN/Creatinine Ratio 20.9 (6-22) Glucose 164 H (80-110) mg/dL Lactate (0.7-2.1) mmol/L Calcium 9.0 (8.4-10.2) mg/dL Total Bilirubin (0.2-1.3) mg/dL AST (17-59) IU/L ALT (<50) IU/L Alkaline Phosphatase (38-126) U/L Total Creatine Kinase (55-170) U/L Troponin I (0.01-0.034) ng/mL NT-Pro-B Natriuret Pep (<125) pg/mL Total Protein (6.3-8.2) g/dL Albumin (3.5-5.0) g/dL Globulin (1.7-4.1) g/dL Albumin/Globulin Ratio (1.0-2.8) Urine Color Yellow Urine Appearance Clear Urine pH 5.0 (4.5-8.0) Ur Specific [place] <=1.005 (1.000-1.035) Urine Protein Negative (Negative) Urine Glucose (UA) Negative (Negative) g/dL Urine Ketones Negative (NEGATIVE) Urine Occult Blood Negative (Negative) Urine Nitrate Negative (Negative) Urine Bilirubin Negative (NEGATIVE) Urine Urobilinogen 0.2 (0.2) E.U./dL Ur Leukocyte Esterase Negative (NEGATIVE) Urine RBC None seen (0-5/HPF) Urine WBC None seen (0-5/HPF) Ur Squamous Epith Cells 0-1 /hpf (0-5/HPF) Urine Bacteria None seen (None) Ur Culture Indicated? Cult not indicated SARS-CoV-2 (PCR) (Negative) 04/26/22 04/26/22 04/26/22 Range/Units 11:40 11:40 14:58 WBC (4.5-11.0) X10^3/uL RBC (4.5-5.9) X10^6/uL Hgb (13.5-17.5) g/dL Hct (41-53) % MCV (80-100) fL MCH (26-34) PG MCHC (30-36) % RDW (11.6-14.8) % Plt Count (150-400) X10^3/uL Neut % (Auto) (50-75) % Lymph % (Auto) (25-40) % [place] % (Auto) (3-14) % Eos % (Auto) (2-4) % Baso % (Auto) (0-2) % Neut # (Auto) (4388-7751) /uL Lymph # (Auto) (8280-9635) /uL [place] # (Auto) (0-900) /uL Eos # (Auto) (0-450) /uL Baso # (Auto) (0-100) /uL VBG pH (7.33-7.43) VBG pCO2 (45-50) mmHg VBG pO2 (35-45) mmHg VBG HCO3 (23-28) mmol/L VBG Total CO2 (24-29) mmol/L VBG O2 Saturation (70-75) % VBG Base Excess (0-4) mmol/L Sodium 131 L (137-145) mmol/L Potassium 5.5 H D (3.4-5.1) mmol/L Chloride 101 (98-107) mmol/L Carbon Dioxide 23 (22-32) mmol/L BUN 38 H (9-20) mg/dL Creatinine 1.84 H (0.66-1.25) mg/dL Estimated GFR 38 L (>60) mL/min BUN/Creatinine Ratio 20.7 (6-22) Glucose 428 H D (80-110) mg/dL Lactate (0.7-2.1) mmol/L Calcium 8.5 (8.4-10.2) mg/dL Total Bilirubin (0.2-1.3) mg/dL AST (17-59) IU/L ALT (<50) IU/L Alkaline Phosphatase (38-126) U/L Total Creatine Kinase 252 H (55-170) U/L Troponin I (0.01-0.034) ng/mL NT-Pro-B Natriuret Pep 109 (<125) pg/mL Total Protein (6.3-8.2) g/dL Albumin (3.5-5.0) g/dL Globulin (1.7-4.1) g/dL Albumin/Globulin Ratio (1.0-2.8) Urine Color Urine Appearance Urine pH (4.5-8.0) Ur Specific [place] (1.000-1.035) Urine Protein (Negative) Urine Glucose (UA) (Negative) g/dL Urine Ketones (NEGATIVE) Urine Occult Blood (Negative) Urine Nitrate (Negative) Urine Bilirubin (NEGATIVE) Urine Urobilinogen (0.2) E.U./dL Ur Leukocyte Esterase (NEGATIVE) Urine RBC (0-5/HPF) Urine WBC (0-5/HPF) Ur Squamous Epith Cells (0-5/HPF) Urine Bacteria (None) Ur Culture Indicated? SARS-CoV-2 (PCR) (Negative) Point of Care Testing Glucose POC 144 Just got a phone call the potassium is greater than 8. Will initiate emergent hyperkalemia protocol. Specifically, calcium chloride, insulin and glucose, albuterol, Kayexalate ABG Data ABG results: VBG results from 10 10 this morning are pH 7.27 pCO2 35.8, PO2 66 HC03 16.5 Imaging Data Chest x-ray: Radiologist Impression: IMPRESSION:? No acute cardiopulmonary disease. ? ? Dictated by: Luz Castillo M.D. on 04/26/2022 at 8:19 ? ? Approved by: Luz Castillo M.D. on 04/26/2022 at 8:20 ? CT scan - head: Radiologist Impression: IMPRESSION:? ? 1. No CT evidence of acute process. ? 2. Age-appropriate changes.? ? ? Dictated by: Denae Amaral M.D. on 04/26/2022 at 8:28 ? ? Approved by: Denae Amaral M.D. on 04/26/2022 at 8:30 ? ECG Data Interpretation: EKG obtained at 7:29 a.m. reveals a sinus rhythm with a wide QRS at a rate of 105 beats per minute he has a right bundle branch block and a left anterior fascicle block. His QTC is [address] or T-wave changes Repeat EKG at 7:31 a.m. looks essentially the same repeat EKG at 7:52 a.m. looks different with deep T-wave inversion in lead 1 and aVL to me looks like inferolateral ischemia. The rate is recorded as 51 beats per minute on the EKG at 7:52 a.m. but at 100 beats per minute at the previous 2 though on further review the rate is incorrectly recorded on the previous 2 EKGs the actual rate is 50 MDM Narrative Medical decision making narrative: After a lengthy interview with persistent and detailed physical exam, and EKG review. I think that a cardiac etiology seems most probable to me. I will pursue down that pathway for the time being. I will contact Cardiology and reviewed EKG findings and discuss the medius see of intervention. Transfer is a great difficulty at this time because of capacity elsewhere around us. I will speak to Dr. Borja soon as I can. He has acute renal failure and severe hyperkalemia. Have initiated all the standard hyperkalemia protocol including him sodium bicarb. Will consult with Dr. Fonseca from Intensive care. I spoke to him just now. Current time 9:17 a.m.. He recommended 2 L saline bolus followed by 2 amps of sodium bicarbonate with a 150 cc/hour of D5W with 3 amps of bicarbonate drip. After about 4 or 5 L of saline are in the patient he would recommend Lasix. Of course he recommends stat transfer to inpatient to location where dialysis is available. Updated medication list the patient is taking atorvastatin, amlodipine, allopurinol, lisinopril/ Hydrochlorothiazide, spironolactone and metoprolol. will recheck basic metabolic panel at 4:00 a.m. intervals. 9:37 a.m.: Spoke to Dr. Lg Salguero from hospitalist service who agrees to come to the bedside and do a consultation in anticipation of hospitalization if his 1st set of labs show a significant improvement in his potassium. 1102: Increasing oxygen demand up to 6 L to keep his saturations in the mid 90%. Careful examination of the chest reveals no rales at all. The patient is in no respiratory distress. Urine output is only scant so far I do not believe he has fluid overload as the cause for his relative hypoxia. No ability to assess for pulmonary embolism given his severe renal impairment. Will start Lovenox empirically for now. 1251. Potassium level is 7.2 and the EKG is dramatically improved. Will continue to observe him here in the ER for another 4 hour period. Lasix is being administered. Will continue the bicarb infusion. 1635. Most recent electrolytes are much improved. Creatinine is slightly better. He is volume status is improved. He has good urine output. He he feels somewhat better. I do not think that emergent dialysis will be necessary. His current potassium is 5.5. Spoke to Dr. aSlguero again who agrees to admit the patient to our facility ICU. Critical Care Time Critical Care Time Critical Care Time: Yes Total Critical Care Time: 100 Attestation: I spent at least 100 minutes of critical care time at the bedside, taking history from the patient, consulting with ep specialist, nephrology, hospitalist. I spent time re-evaluating his response to therapy, I spent time interpreting laboratory results. Discharge Plan Departure Patient Disposition: Admitted As Inpatient Clinical Impression: Acute renal failure, Acute hyperkalemia Admit Date/Time: 04/26/22 16:17 Admit Provider: Lg Salguero
[2022-04-26 07:46] LABS: Add Manual Diff / Slide Review NO; Basophils Absolute Auto 100 /uL (0-100); Basophils Percent Auto 0.7 % (0-2); Eosinophils Absolute Auto 100 /uL (0-450); Eosinophils Percent Auto 1.1 % (2-4); Hematocrit 35.3 % (41-53); Hemoglobin 11.5 g/dL (13.5-17.5); Lymphocytes Absolute Auto 1700 /uL (1100-4500); Lymphocytes Percent Auto 13.3 % (25-40); Mean Corpuscular HGB Conc 32.7 % (30-36); Mean Corpuscular Hemoglobin 34.3 PG (26-34); Mean Corpuscular Volume 104.8 fL (80-100); Monocytes Absolute Auto 1300 /uL (0-900); Monocytes Percent Auto 10.1 % (3-14); Neutrophils Absolute Auto 9700 /uL (1500-7000); Neutrophils Percent Auto 74.8 % (50-75); Platelet Count 246 X10^3/uL (150-400); Red Blood Cell Count 3.37 X10^6/uL (4.5-5.9); Red Cell Distribution Width 15.1 % (11.6-14.8)
[2022-04-26 07:51] LABS: Alanine Aminotransferase 17 IU/L (<50); Albumin 4.5 g/dL (3.5-5.0); Albumin Globulin Ratio 1.6 (1.0-2.8); Alkaline Phosphatase 70 U/L (38-126); Aspartate Aminotransferase 28 IU/L (17-59); BUN Creatinine Ratio 18.5 (6-22); Bilirubin Total 0.5 mg/dL (0.2-1.3); Blood Urea Nitrogen 46 mg/dL (9-20); Calcium 9.2 mg/dL (8.4-10.2); Carbon Dioxide 12 mmol/L (22-32); Chloride 107 mmol/L (98-107); Estimated Glomerular Filt Rate 27 mL/min (>60); Globulin 2.9 g/dL (1.7-4.1); Glucose 123 mg/dL (80-110); HEMOLYSIS < 15 (0-50); Sodium 131 mmol/L (137-145); Total Protein 7.4 g/dL (6.3-8.2)
--- NOTE | 2022-04-26 07:58 | DI.CT.S_ITS ---
PROCEDURE: CT HEAD/BRAIN WO CON INDICATIONS: dizziness TECHNIQUE: Noncontrast 4.5 mm thick angled axial sections acquired from the foramen magnum to the vertex, with coronal and sagittal reformats. For radiation dose reduction, the following was used: automated exposure control, adjustment of mA and/or kV according to patient size. COMPARISON: None. FINDINGS: Image quality: Excellent. CSF spaces: Basal cisterns are patent. No extra-axial fluid collections. The ventricles are symmetric in size and shape. Brain: No intracranial bleeds or masses. There is cerebral volume loss for age, with resultant ventricular and sulcal prominence. There are periventricular and deep white matter chronic small vessel ischemic changes. There is intracranial internal carotid artery atherosclerosis. Skull and face: Calvarium and visualized facial bones appear intact, without suspicious lesions. Sinuses: Visualized sinuses and mastoids are clear. IMPRESSION: 1. No CT evidence of acute process. 2. Age-appropriate changes. Dictated by: Denae Amaral M.D. on 04/26/2022 at 8:28 Approved by: Denae Amaral M.D. on 04/26/2022 at 8:30
--- NOTE | 2022-04-26 08:00 | DI.RAD.S_ITS ---
PROCEDURE: XR CHEST 1V INDICATIONS: Palpitations TECHNIQUE: One view of the chest was acquired. COMPARISON: [facility], CR, XR CHEST 1V, 11/24/2020, 8:32. [facility], CR, XR CHEST 1V, 05/22/2018, 13:12. FINDINGS: Surgical changes and devices: None. Lungs and pleura: The right hemidiaphragm is elevated. Mild right basilar atelectasis. Lungs are clear. No pleural effusions or pneumothorax. Mediastinum: Mediastinal contours appear normal. Heart size is normal. Bones and chest wall: No suspicious bony lesions. Overlying soft tissues appear unremarkable. IMPRESSION: No acute cardiopulmonary disease. Dictated by: Luz Castillo M.D. on 04/26/2022 at 8:19 Approved by: Luz Castillo M.D. on 04/26/2022 at 8:20
[2022-04-26 08:14] LABS: Potassium 8.1 mmol/L (3.4-5.1)
[2022-04-26] MEDS: ALBUTEROL 2.5 MG/3 ML NEB (ADULT) INH (08:20)
[2022-04-26] MEDS: SODIUM CHLORIDE 0.9% 1,000 ML 1000 ML IV ×2 (08:25→12:49)
[2022-04-26] MEDS: CALCIUM CHLORIDE 1,000 MG/10 ML SYRINGE 1000 MG IV (08:25)
[2022-04-26 08:36] LABS: HEMOLYSIS 26 (0-50)
[2022-04-26] MEDS: DEXTROSE 10 % IN WATER 1,000 ML 150 ML IV (08:37)
[2022-04-26] MEDS: INSULIN REGULAR 100 UNIT/ML 3 ML VIAL IV (08:37)
[2022-04-26 08:38] LABS: COVID19 -Nasal RAPID Negative (Negative)
[2022-04-26] MEDS: ALBUTEROL 2.5 MG/3 ML NEB (ADULT) 10 MG INH (08:45)
[2022-04-26 08:51] LABS: Troponin I < 0.012 ng/mL (0.01-0.034)
[2022-04-26] MEDS: ONDANSETRON 4 MG/2 ML INJ IV (08:53)
[2022-04-26] MEDS: SODIUM POLYSTYRENE SULFON/SORB 15 GM/60 ML CUP 30 GM PO ×2 (08:57→21:32)
[2022-04-26] MEDS: SODIUM BICARB 8.4% SYRINGE 95 MEQ IV (09:21)
[2022-04-26] MEDS: SODIUM BICARB 8.4% VIAL 150 MEQ in DEXTROSE 5% WATER 1,000 ML IV (10:04)
[2022-04-26 10:23] LABS: HCO3 VBG 17 mmol/L (23-28); Oxygen Saturation VBG 90 % (70-75); PCO2 VBG 35.8 mmHg (45-50); PO2 VBG 66 mmHg (35-45); Total CO2 VBG 18 mmol/L (24-29); pH VBG 7.27 (7.33-7.43)
--- NOTE | 2022-04-26 10:29 | PC.NURSE ---
I was asked to place this patient on the transfer list at other hospitals. I called [facility], [facility] and [facility] and added the patient to their individual lists. I called [facility] and [facility] declined to place the patient on their transfer lists due to lack of available beds.
--- NOTE | 2022-04-26 10:52 | PM.CN ---
History of Present Illness Consult details Chief complaint: limbs not working ,trouble breathing Narrative: Ward Zapata is a 71-year-old male with past medical history of hypertension, hyperlipidemia, ANASTASIA, and gout who presented to the emergency department with weakness and diaphoresis. 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 who recommended starting bicarbonate drip, giving calcium Meds Home Medications and Allergies Home Medications Medication Instructions Recorded Confirmed Type lisinopril 20 1 tab PO BID 05/22/18 04/26/22 History mg-hydrochlorothiazide 12.5 mg tablet allopurinol 300 mg tablet 300 mg PO BID 06/29/19 04/26/22 History amlodipine 10 mg tablet 10 mg PO DAILY 04/26/22 04/26/22 History atorvastatin 20 mg tablet 20 mg PO DAILY 04/26/22 04/26/22 History metoprolol succinate 50 mg 50 mg PO BID 04/26/22 04/26/22 History tablet,extended release 24 hr spironolactone 50 mg tablet 50 mg PO BID 04/26/22 04/26/22 History Allergies Allergy/AdvReac Type Severity Reaction Status Date / Time [id number] Reductase AdvReac Unknown Muscle Pain Verified 11/09/19 10:17 Inhibitor [Cefxkmm-Dhb-Nnd Reductase Inhibitor] Exam Vital Signs (past 8 hours): - 04/26/22 07:13 04/26/22 07:24 04/26/22 07:30 Temperature 98.1 F Pulse Rate 65 70 Respiratory Rate 20 29 H Blood Pressure 146/64 H Pulse Oximetry 95 95 Oxygen Delivery Method Room Air Room Air Oxygen Flow Rate 04/26/22 07:45 04/26/22 07:56 04/26/22 07:56 Temperature Pulse Rate 50 L 51 L Respiratory Rate 24 Blood Pressure 128/58 L Pulse Oximetry 94 95 Oxygen Delivery Method Room Air Room Air Room Air Oxygen Flow Rate 04/26/22 08:00 04/26/22 08:00 04/26/22 08:15 Temperature Pulse Rate 47 L 69 Respiratory Rate 21 16 Blood Pressure 115/58 L Pulse Oximetry 94 94 Oxygen Delivery Method Room Air Room Air Oxygen Flow Rate 04/26/22 08:17 04/26/22 08:17 04/26/22 08:30 Temperature Pulse Rate 115 H Respiratory Rate 19 29 H Blood Pressure 121/58 L Pulse Oximetry 94 94 Oxygen Delivery Method Room Air Oxygen Flow Rate 04/26/22 08:31 04/26/22 08:31 04/26/22 08:45 Temperature Pulse Rate Respiratory Rate 27 H 27 H Blood Pressure 144/64 H Pulse Oximetry 95 90 L Oxygen Delivery Method Room Air Oxygen Flow Rate 04/26/22 09:00 04/26/22 09:01 04/26/22 09:01 Temperature Pulse Rate Respiratory Rate 20 22 Blood Pressure 115/53 L Pulse Oximetry 96 95 Oxygen Delivery Method [place] Nasal Cannula Simple Mask Nasal Cannula Oxygen Flow Rate 10 2 04/26/22 09:15 04/26/22 09:30 04/26/22 09:30 Temperature Pulse Rate 79 75 Respiratory Rate 18 25 H Blood Pressure 128/57 L Pulse Oximetry 90 L 92 Oxygen Delivery Method Nasal Cannula Nasal Cannula Oxygen Flow Rate 2 2 04/26/22 09:45 04/26/22 10:00 04/26/22 10:01 Temperature Pulse Rate 72 92 H Respiratory Rate 28 H 36 H Blood Pressure 134/60 Pulse Oximetry 94 94 Oxygen Delivery Method Nasal Cannula Oxygen Flow Rate 6 04/26/22 10:01 Temperature Pulse Rate 89 Respiratory Rate 14 Blood Pressure Pulse Oximetry 93 Oxygen Delivery Method Nasal Cannula Oxygen Flow Rate 6 Oxygen Delivery Method Nasal Cannula Oxygen Flow Rate 6 Objective Labs Result Diagrams: 04/26/22 07:23 04/26/22 08:25 Labs: Laboratory Results - last 24 hr 04/26/22 04/26/22 04/26/22 07:23 07:23 08:15 WBC 13.0 H RBC 3.37 L Hgb 11.5 L Hct 35.3 L MCV 104.8 H MCH 34.3 H MCHC 32.7 RDW 15.1 H Plt Count 246 Neut % (Auto) 74.8 Lymph % (Auto) 13.3 L Emmet % (Auto) 10.1 Eos % (Auto) 1.1 L Baso % (Auto) 0.7 Neut # (Auto) 9700 H Lymph # (Auto) 1700 Emmet # (Auto) 1300 H Eos # (Auto) 100 Baso # (Auto) 100 VBG pH VBG pCO2 VBG pO2 VBG HCO3 VBG Total CO2 VBG O2 Saturation VBG Base Excess Sodium 131 L Potassium 8.1 H* Chloride 107 Carbon Dioxide 12 L BUN 46 H Creatinine 2.48 H Estimated GFR 27 L BUN/Creatinine Ratio 18.5 Glucose 123 H Calcium 9.2 Total Bilirubin 0.5 AST 28 ALT 17 Alkaline Phosphatase 70 Troponin I Total Protein 7.4 Albumin 4.5 Globulin 2.9 Albumin/Globulin Ratio 1.6 SARS-CoV-2 (PCR) Negative 04/26/22 04/26/22 04/26/22 08:22 08:25 10:09 WBC RBC Hgb Hct MCV MCH MCHC RDW Plt Count Neut % (Auto) Lymph % (Auto) Emmet % (Auto) Eos % (Auto) Baso % (Auto) Neut # (Auto) Lymph # (Auto) Emmet # (Auto) Eos # (Auto) Baso # (Auto) VBG pH 7.27 L VBG pCO2 35.8 L VBG pO2 66 H VBG HCO3 17 L VBG Total CO2 18 L VBG O2 Saturation 90 H VBG Base Excess -10.0 L Sodium Potassium 9.0 H* Chloride Carbon Dioxide BUN Creatinine Estimated GFR BUN/Creatinine Ratio Glucose Calcium Total Bilirubin AST ALT Alkaline Phosphatase Troponin I < 0.012 Total Protein Albumin Globulin Albumin/Globulin Ratio SARS-CoV-2 (PCR) [facility] Medical History (Updated 12/09/20 @ 00:00 by ) Gout Hypertension Insomnia Knee pain Obstructive sleep apnea Social History household members: spouse Tobacco & Substance Use Smoking Status: Never smoker alcohol intake: current Assessment & Plan Time Spent With Patient Critical Care time: I spent a total of [] minutes of critical care time on this patient's care today; this time is exclusive of procedural time.
[2022-04-26] MEDS: ENOXAPARIN 100 MG/ML SYRINGE 90 MG SUBCUT (11:38)
[2022-04-26 11:42] LABS: Appearance Urine UA CLEAR; Bilirubin Urine UA NEGATIVE (NEGATIVE); Color Urine UA YELLOW; Glucose Urine UA NEGATIVE (Negative); Ketones Urine UA NEGATIVE (NEGATIVE); Leukocyte Esterase Urine UA NEGATIVE (NEGATIVE); Nitrite Urine UA NEGATIVE (Negative); Occult Blood Urine UA NEGATIVE (Negative); Protein Urine UA NEGATIVE (Negative); Specific Gravity Urine UA <=1.005 (1.000-1.035); Urobilinogen Urine UA 0.2 E.U./dL (0.2)
[2022-04-26 11:49] LABS: Bacteria Urine None Seen; Culture Indicated Urine Cult Not Indicated; RBC Urine None Seen (0-5/HPF); Squamous Epithelial Cell Urine 0-1 /HPF (0-5/HPF); WBC Urine None Seen (0-5/HPF)
[2022-04-26 12:22] LABS: Lactate (Lactic Acid) 0.9 mmol/L (0.7-2.1)
[2022-04-26 12:22] LABS: BUN Creatinine Ratio 20.9 (6-22); Blood Urea Nitrogen 43 mg/dL (9-20); Carbon Dioxide 17 mmol/L (22-32); Chloride 109 mmol/L (98-107); Creatine Kinase 252 U/L (55-170); Estimated Glomerular Filt Rate 33 mL/min (>60); Glucose 164 mg/dL (80-110); HEMOLYSIS < 15 (0-50); Sodium 133 mmol/L (137-145)
[2022-04-26 12:25] LABS: Potassium 7.2 mmol/L (3.4-5.1)
--- NOTE | 2022-04-26 12:28 | PC.NURSE ---
Patient on bedpan. Total of three episodes of diarrhea now.
[2022-04-26 12:31] LABS: NT-proBNP (BNP-Adult 18+) 109 pg/mL (<125)
[2022-04-26] MEDS: FUROSEMIDE 100 MG/10 ML VIAL 80 MG IV (12:46)
[2022-04-26] MEDS: CALCIUM GLUCONATE 9.3 MEQ in SODIUM CHLORIDE 0.9% 50 ML 140 MEQ IV (14:01)
[2022-04-26] MEDS: INSULIN REGULAR 100 UNIT/ML 3 ML VIAL 10 UNIT IV (14:02)
[2022-04-26] MEDS: ALBUTEROL 2.5 MG/3 ML NEB (ADULT) 20 MG INH (14:15)
--- NOTE | 2022-04-26 15:03 | DI.ECHO.S_ITS ---
[place] [facility]---------+ [facility] +---------+ : : [address] [place] [address] : : : : [id number] : : : : Phone: [phone]+ Echocardiogram Report + + :Name: CRIS SALGUERO Study Date: 04/26/2022 Height: 72 in : :[facility] ReadingLocation: Weight: 207 lb : : Gender: Male BSA: 2.2 m2 : :: 1950 Age: 71 yrs BP: 118/54 mmHg: :Reason For Study: Pulmonary- Embolism : :Ordering Physician: : :MEY FONG Performed By: Miles Cooley : :Referring: MEY FONG : + + Interpretation Summary Sinus tachycardia. Heart rate is 101-110 bpm. Normal LV size and wall thickness. Normal wall motion and left ventricular systolic function. Ejection fraction is estimated at 60-65%. Stage I diastolic dysfunction. Normal chamber sizes. Specifically normal RV size and function. PA systolic pressure can not reliably be discerned due to lack of significant TR jet. Compared to prior study 11/25/2020, sinus tach is new. Procedure: A two-dimensional transthoracic echocardiogram with color flow and Doppler was performed. The study quality was technically adequate. Comparison is made with the echocardiogram of 11/25/2020. Left Ventricle: The left ventricle is normal in size and wall thickness. The left ventricle is hyperdynamic. The ejection fraction is estimated to be 60- 65%. There are no focal wall motion abnormalities. Diastolic parameters suggest probable normal left ventricular diastolic function and normal filling pressures. Right Ventricle: The right ventricle is normal in size and function. Atria: Both atria are normal in size. The interatrial septum grossly appears intact with no obvious evidence for an atrial septal defect. Mitral Valve: The mitral valve is normal in structure and function. There is no mitral regurgitation noted. Aortic Valve: The aortic valve is normal in structure and function. No aortic regurgitation is present. Tricuspid Valve: The tricuspid valve is normal in structure and function. No tricuspid regurgitation. Pulmonary artery pressures cannot be estimated because of the lack of a measurable TR jet velocity. Pulmonic Valve: The pulmonic valve is not well seen, but is grossly normal. There is no pulmonic valvular regurgitation. Great Vessels: The aortic root is normal size. The dimensions of the ascending aorta are normal. The IVC is of normal diameter and collapses greater than 50% with a sniff. This suggests a low right atrial pressure of 3 mm Hg. Pericardium/ Pleura There is no pericardial effusion. There is no pleural effusion. MMode/2D Measurements & Calculations LVIDd: 5.2 cm LVOT diam: 2.1 cm LVIDs: 2.8 cm Ao root diam: 3.2 cm FS: 46.2 % asc Aorta Diam: 3.4 cm IVSd: 0.77 cm LVPWd: 0.67 cm LV mendoza. diameter/BSA (cm/m^2): 2.4 LV sys. diameter/BSA (cm/m^2): 1.3 LA A2 area: 22.1 cm2 RA long axis: 5.4 cm LA A4 area: 20.6 cm2 RA area: 11.6 cm2 LA length (vol): 5.9 cm RA vol: 21.0 ml LA vol: 65.2 ml RA : 9.7 ml/m2 LA vol index: 30.2 ml/m2 TAPSE: 1.8 cm Doppler Measurements & Calculations Ao V2 max: 213.9 cm/sec LVOT Max Ed: 167.3 cm/sec Ao V2 mean: 149.6 cm/sec LV V1 max P.2 mmHg Ao max P.3 mmHg LV V1 VTI: 27.8 cm Ao mean P.0 mmHg PAXTON(I,D): 3.0 cm2 Ao V2 VTI: 33.3 cm PAXTON(V,D): 2.8 cm2 sev ratio: 0.83 PAXTON indexed to BSA (cm^2/m^2): 1.4 MV E max ed: 93.1 cm/sec SV(LVOT): 99.8 ml MV A max ed: 137.2 cm/sec MV E/A: 0.68 Med Peak E' Ed: 10.0 cm/sec E/E' med: 9.3 Lat Peak E' Ed: 11.9 cm/sec E/E' lat: 7.8 E/e' average: 8.6 MV dec time: 0.26 sec Electronically signed by: Kassie Meyer M.D. on Reading Physician:04/26/2022 05:29 PM
--- NOTE | 2022-04-26 15:08 | PC.NURSE ---
repeat BG after medications was 61. Pt given 1 orange juice and a 100ml bolus of d10 and increased IV rate to 150ml/hr after bolus. repeat BG 94. D50 amps are not available per pharmacy.
[2022-04-26 15:17] LABS: BUN Creatinine Ratio 20.7 (6-22); Blood Urea Nitrogen 38 mg/dL (9-20); Calcium 8.5 mg/dL (8.4-10.2); Carbon Dioxide 23 mmol/L (22-32); Chloride 101 mmol/L (98-107); Estimated Glomerular Filt Rate 38 mL/min (>60); Glucose 428 mg/dL (80-110); HEMOLYSIS < 15 (0-50); Potassium 5.5 mmol/L (3.4-5.1); Sodium 131 mmol/L (137-145)
--- NOTE | 2022-04-26 15:38 | PC.NURSE ---
Patient placed on [facility] list at 1530.
--- NOTE | 2022-04-26 15:50 | PC.NURSE ---
Echo at bedside
--- NOTE | 2022-04-26 16:20 | PM.HP.1 ---
History of Present Illness History of Present Illness Date Patient Seen: 04/26/22 Time Patient Seen: 09:00 Chief complaint: limbs not working ,trouble breathing Narrative: Ward Francis is a 71-year-old male with past medical history of hypertension, hyperlipidemia, ANASTASIA, and gout who presented to the emergency department with weakness, diaphoresis and twitching. Found to have a potassium of 9.0 with T-wave changes on EKG. 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 [facility] was called who agreed with transferring for HD unless potassium could be lowered to below 6.0. Patient appeared dry on exam and with diffuse intermittent body spasms and twitching. This improved after receiving fluids. is at bedside with the patient on my arrival. The patient says she takes lisinopril and spironolactone for blood pressure management working out in the hot sun shoveling mulch and sweating with poor p.o. intake. He developed diffuse muscle twitching, dyspnea, weakness and diaphoresis but was reluctant to come to the ED until his convinced him. He states since receiving fluids in the ED he feels much better and the twitching has improved. He denies chest pain, nausea vomiting, headache, abdominal pain or diarrhea. In the ED patient found to have a potassium of 8.1 which анна to 9 an hour later. Creatinine was 2.34. EKG showed peaked T-waves. He was given appropriate hyperkalemia medications as listed above including several fluid boluses. Transfer was attempted while pharmacologic attempts were made to lower potassium. Repeat potassium came back at 7.2 and then 5.5. Creatinine improved to 1.84. Patient was therefore accepted for admission and moved up into the ICU. Patient History Medical History Gout Hypertension Insomnia Knee pain Obstructive sleep apnea Family & Social History Family History Father Cancer Mother Cancer Social History: household members spouse Safety & Behavioral: Feels Safe in Current Yes Environment Been Physically Hurt or No Threatened By a Person Tobacco & Substance use: Smoking Status Never smoker alcohol intake current alcohol intake frequency holiday/special occasion Substance Use Type does not use Meds Home Medications and Allergies Home Medications Medication Instructions Recorded Confirmed Type lisinopril 20 1 tab PO BID 05/22/18 04/26/22 History mg-hydrochlorothiazide 12.5 mg tablet allopurinol 300 mg tablet 300 mg PO BID 06/29/19 04/26/22 History amlodipine 10 mg tablet 10 mg PO DAILY 04/26/22 04/26/22 History atorvastatin 20 mg tablet 20 mg PO DAILY 04/26/22 04/26/22 History metoprolol succinate 50 mg 50 mg PO BID 04/26/22 04/26/22 History tablet,extended release 24 hr spironolactone 50 mg tablet 50 mg PO BID 04/26/22 04/26/22 History Allergies Allergy/AdvReac Type Severity Reaction Status Date / Time [id number] Reductase AdvReac Unknown Muscle Pain Verified 11/09/19 10:17 Inhibitor [Hjrjrmc-Ogg-[id number] Reductase Inhibitor] Review of Systems Review of Systems Narrative: All other systems reviewed with the patient and are negative unless otherwise stated. Exam Vital Signs (past 8 hours): - 04/26/22 08:30 04/26/22 08:31 04/26/22 08:31 Pulse Rate 115 H Respiratory Rate 29 H 27 H Blood Pressure 144/64 H Pulse Oximetry 94 95 Oxygen Delivery Method Room Air Oxygen Flow Rate 04/26/22 08:45 04/26/22 09:00 04/26/22 09:01 Pulse Rate Respiratory Rate 27 H 20 Blood Pressure 115/53 L Pulse Oximetry 90 L 96 Oxygen Delivery Method Room Air Kyle Nasal Cannula Simple Mask Oxygen Flow Rate 10 04/26/22 09:01 04/26/22 09:15 04/26/22 09:30 Pulse Rate 79 Respiratory Rate 22 18 Blood Pressure 128/57 L Pulse Oximetry 95 90 L Oxygen Delivery Method Nasal Cannula Nasal Cannula Oxygen Flow Rate 2 2 04/26/22 09:30 04/26/22 09:45 04/26/22 10:00 Pulse Rate 75 72 92 H Respiratory Rate 25 H 28 H 36 H Blood Pressure Pulse Oximetry 92 94 94 Oxygen Delivery Method Nasal Cannula Nasal Cannula Oxygen Flow Rate 2 6 04/26/22 10:01 04/26/22 10:01 04/26/22 10:15 Pulse Rate 89 85 Respiratory Rate 14 Blood Pressure 134/60 Pulse Oximetry 93 95 Oxygen Delivery Method Nasal Cannula Oxygen Flow Rate 6 04/26/22 10:30 04/26/22 10:30 04/26/22 10:45 Pulse Rate 85 99 H Respiratory Rate Blood Pressure 118/57 L Pulse Oximetry 95 91 Oxygen Delivery Method Nasal Cannula Oxygen Flow Rate 2 04/26/22 11:00 04/26/22 11:00 04/26/22 11:15 Pulse Rate 91 H 91 H Respiratory Rate Blood Pressure 125/60 Pulse Oximetry 93 93 Oxygen Delivery Method Oxygen Flow Rate 04/26/22 11:30 04/26/22 11:30 04/26/22 11:45 Pulse Rate 85 80 Respiratory Rate 23 Blood Pressure 127/61 Pulse Oximetry 92 92 Oxygen Delivery Method Nasal Cannula Oxygen Flow Rate 2 04/26/22 12:29 04/26/22 12:00 04/26/22 12:00 Pulse Rate 84 83 Respiratory Rate Blood Pressure 133/60 Pulse Oximetry 93 93 Oxygen Delivery Method Nasal Cannula Oxygen Flow Rate 2 04/26/22 12:15 04/26/22 12:30 04/26/22 12:45 Pulse Rate 82 96 H 95 H Respiratory Rate 23 23 Blood Pressure Pulse Oximetry 93 95 Oxygen Delivery Method Nasal Cannula Oxygen Flow Rate 2 04/26/22 12:51 04/26/22 12:51 04/26/22 13:00 Pulse Rate 96 H Respiratory Rate 20 Blood Pressure 121/64 115/57 L Pulse Oximetry 94 Oxygen Delivery Method Oxygen Flow Rate 04/26/22 13:00 04/26/22 13:15 04/26/22 13:30 Pulse Rate 85 90 Respiratory Rate 23 33 H Blood Pressure 109/54 L Pulse Oximetry 94 96 Oxygen Delivery Method Oxygen Flow Rate 04/26/22 13:30 04/26/22 13:45 04/26/22 14:00 Pulse Rate 89 79 Respiratory Rate 24 20 Blood Pressure 121/57 L Pulse Oximetry 94 95 Oxygen Delivery Method Oxygen Flow Rate 04/26/22 14:00 04/26/22 14:15 04/26/22 14:30 Pulse Rate 77 78 Respiratory Rate 27 H 21 Blood Pressure 113/57 L Pulse Oximetry 96 97 Oxygen Delivery Method Nasal Cannula Oxygen Flow Rate 3 04/26/22 14:30 04/26/22 14:45 04/26/22 15:00 Pulse Rate 94 H 94 H 92 H Respiratory Rate 24 21 20 Blood Pressure Pulse Oximetry 96 97 97 Oxygen Delivery Method Nasal Cannula Oxygen Flow Rate 3 04/26/22 15:15 04/26/22 15:30 04/26/22 15:45 Pulse Rate 96 H 100 H 106 H Respiratory Rate 22 21 24 Blood Pressure Pulse Oximetry 91 99 99 Oxygen Delivery Method Oxygen Flow Rate 04/26/22 15:49 04/26/22 15:49 Pulse Rate 101 H Respiratory Rate 16 Blood Pressure 118/54 L Pulse Oximetry 99 Oxygen Delivery Method Oxygen Flow Rate Oxygen Delivery Method Nasal Cannula Oxygen Flow Rate 3 Narrative Exam Narrative: GEN: no acute distress, appears dry HEENT: Dry mucous membranes, PERRL NECK: trachea midline, no JVD CV: regular rate and rhythm, no murmurs PULM: clear bilaterally ABD: soft, nontender, nondistended, no organomegaly EXT: warm and well perfused with no edema NEURO: awake, alert, oriented, no focal deficits. Diffuse muscle twitching. Objective Labs Result Diagrams: 04/26/22 07:23 04/26/22 14:58 Labs: Laboratory Results - last 24 hr 04/26/22 04/26/22 04/26/22 07:23 07:23 07:23 WBC 13.0 H RBC 3.37 L Hgb 11.5 L Hct 35.3 L MCV 104.8 H MCH 34.3 H MCHC 32.7 RDW 15.1 H Plt Count 246 Neut % (Auto) 74.8 Lymph % (Auto) 13.3 L [place] % (Auto) 10.1 Eos % (Auto) 1.1 L Baso % (Auto) 0.7 Neut # (Auto) 9700 H Lymph # (Auto) 1700 [place] # (Auto) 1300 H Eos # (Auto) 100 Baso # (Auto) 100 VBG pH VBG pCO2 VBG pO2 VBG HCO3 VBG Total CO2 VBG O2 Saturation VBG Base Excess Sodium 131 L Potassium 8.1 H* Chloride 107 Carbon Dioxide 12 L BUN 46 H Creatinine 2.48 H Estimated GFR 27 L BUN/Creatinine Ratio 18.5 Glucose 123 H Lactate 0.9 Calcium 9.2 Total Bilirubin 0.5 AST 28 ALT 17 Alkaline Phosphatase 70 Total Creatine Kinase Troponin I NT-Pro-B Natriuret Pep Total Protein 7.4 Albumin 4.5 Globulin 2.9 Albumin/Globulin Ratio 1.6 Urine Color Urine Appearance Urine pH Ur Specific [place] Urine Protein Urine Glucose (UA) Urine Ketones Urine Occult Blood Urine Nitrate Urine Bilirubin Urine Urobilinogen Ur Leukocyte Esterase Urine RBC Urine WBC Ur Squamous Epith Cells Urine Bacteria Ur Culture Indicated? SARS-CoV-2 (PCR) 04/26/22 04/26/22 04/26/22 08:15 08:22 08:25 WBC RBC Hgb Hct MCV MCH MCHC RDW Plt Count Neut % (Auto) Lymph % (Auto) [place] % (Auto) Eos % (Auto) Baso % (Auto) Neut # (Auto) Lymph # (Auto) [place] # (Auto) Eos # (Auto) Baso # (Auto) VBG pH VBG pCO2 VBG pO2 VBG HCO3 VBG Total CO2 VBG O2 Saturation VBG Base Excess Sodium Potassium 9.0 H* Chloride Carbon Dioxide BUN Creatinine Estimated GFR BUN/Creatinine Ratio Glucose Lactate Calcium Total Bilirubin AST ALT Alkaline Phosphatase Total Creatine Kinase Troponin I < 0.012 NT-Pro-B Natriuret Pep Total Protein Albumin Globulin Albumin/Globulin Ratio Urine Color Urine Appearance Urine pH Ur Specific [place] Urine Protein Urine Glucose (UA) Urine Ketones Urine Occult Blood Urine Nitrate Urine Bilirubin Urine Urobilinogen Ur Leukocyte Esterase Urine RBC Urine WBC Ur Squamous Epith Cells Urine Bacteria Ur Culture Indicated? SARS-CoV-2 (PCR) Negative 04/26/22 04/26/22 04/26/22 10:09 10:54 11:40 WBC RBC Hgb Hct MCV MCH MCHC RDW Plt Count Neut % (Auto) Lymph % (Auto) [place] % (Auto) Eos % (Auto) Baso % (Auto) Neut # (Auto) Lymph # (Auto) [place] # (Auto) Eos # (Auto) Baso # (Auto) VBG pH 7.27 L VBG pCO2 35.8 L VBG pO2 66 H VBG HCO3 17 L VBG Total CO2 18 L VBG O2 Saturation 90 H VBG Base Excess -10.0 L Sodium 133 L Potassium 7.2 H* D Chloride 109 H Carbon Dioxide 17 L BUN 43 H Creatinine 2.06 H Estimated GFR 33 L BUN/Creatinine Ratio 20.9 Glucose 164 H Lactate Calcium 9.0 Total Bilirubin AST ALT Alkaline Phosphatase Total Creatine Kinase Troponin I NT-Pro-B Natriuret Pep Total Protein Albumin Globulin Albumin/Globulin Ratio Urine Color Yellow Urine Appearance Clear Urine pH 5.0 Ur Specific [place] <=1.005 Urine Protein Negative Urine Glucose (UA) Negative Urine Ketones Negative Urine Occult Blood Negative Urine Nitrate Negative Urine Bilirubin Negative Urine Urobilinogen 0.2 Ur Leukocyte Esterase Negative Urine RBC None seen Urine WBC None seen Ur Squamous Epith Cells 0-1 /hpf Urine Bacteria None seen Ur Culture Indicated? Cult not indicated SARS-CoV-2 (PCR) 04/26/22 04/26/22 04/26/22 11:40 11:40 14:58 WBC RBC Hgb Hct MCV MCH MCHC RDW Plt Count Neut % (Auto) Lymph % (Auto) [place] % (Auto) Eos % (Auto) Baso % (Auto) Neut # (Auto) Lymph # (Auto) [place] # (Auto) Eos # (Auto) Baso # (Auto) VBG pH VBG pCO2 VBG pO2 VBG HCO3 VBG Total CO2 VBG O2 Saturation VBG Base Excess Sodium 131 L Potassium 5.5 H D Chloride 101 Carbon Dioxide 23 BUN 38 H Creatinine 1.84 H Estimated GFR 38 L BUN/Creatinine Ratio 20.7 Glucose 428 H D Lactate Calcium 8.5 Total Bilirubin AST ALT Alkaline Phosphatase Total Creatine Kinase 252 H Troponin I NT-Pro-B Natriuret Pep 109 Total Protein Albumin Globulin Albumin/Globulin Ratio Urine Color Urine Appearance Urine pH Ur Specific [place] Urine Protein Urine Glucose (UA) Urine Ketones Urine Occult Blood Urine Nitrate Urine Bilirubin Urine Urobilinogen Ur Leukocyte Esterase Urine RBC Urine WBC Ur Squamous Epith Cells Urine Bacteria Ur Culture Indicated? SARS-CoV-2 (PCR) Assessment & Plan Assessment & Plan narrative: Ward Francis is a 71-year-old male with past medical history of hypertension, hyperlipidemia, ANASTASIA, and gout who presented to the emergency department with weakness, diaphoresis and twitching. # severe acute hyperkalemia -secondary to lisinopril and spironolactone in the setting of dehydration -potassium peaked at 9.0 and with hyperkalemia treatment bundle including Kayexalate lowered to 5.5 -continue q4h BMP checks, potassium rises again restart Kayexalate and give potassium treatment bundle -start NS at 150 cc per hour for 12 hours -hold home lisinopril and spironolactone -low-potassium diet -telemetry # EUGENIE -pre renal due to hydration -initial creatinine 2.34 with baseline of 0.8 -holding lisinopril as above -creatinine now down trending -fluids as above # sinus tachycardia in setting of HFpEF -heart rate elevated into 120s -echo shows EF 60-65% with stage I diastolic dysfunction -likely due to several doses of nebulized albuterol -initial troponin negative # mild hyponatremia -sodium 131 -likely hypotonic secondary to dehydration -IV fluids as above # mild leukocytosis -WBC 13, question if due to hemoconcentration from dehydration -afebrile -recheck CBC in a.m. -monitor for infection # macrocytic anemia -MCV 104 and hemoglobin 11.5 -check B12 and folate # mildly elevated creatinine kinase -CK 252 -likely secondary to muscle twitching from hyperkalemia # acute hypoxic respiratory failure, resolved -initially requiring 6 L of oxygen which is titrated down to 2 L -O2 now weaned off # hypertension, chronic -normotensive so will hold home blood pressure meds for now # gout, chronic -hold home allopurinol due to EUGENIE # hyperlipidemia, chronic -hold home statin due to elevated CK Dr. Hewitt patient's PCP will assume care starting 04/27. Dispo: If potassium and creatinine normalized patient can likely discharge on 04/27 on different blood pressure medications which do not include lisinopril or spironolactone. I spent a total of 80 minutes of critical care time on this patient's care today; this time is exclusive of procedural time. Code status is full code. COVID negative. DVT prophylaxis with heparin subcutaneous. Proxy is Beth. I have reviewed home meds and used all available resources to reconcile the home meds. Time Spent With Patient Critical Care time: I spent a total of [] minutes of critical care time on this patient's care today; this time is exclusive of procedural time.
--- NOTE | 2022-04-26 18:22 | P.TELICUCN_ITS ---
History of Present Illness Consult details Chief complaint: limbs not working ,trouble breathing Narrative: Patient is a pleasant 71 year old male wiht history of HTN who presents with generalized weakness. Associated with poor po intake and diarrhea. In ER, he was found to have a potassium of 9 and received calcium gluconate, insulin, dextrose, albuterol, and 2 amps of sodium bicarbonate. He was resuscitated with 2 liters NC and started on lasix. Repeat potassium came down to 5.5. Admitted to ICU for further management. [facility] Medical History (Updated 04/26/22 @ 16:39 by Jay Martínez MD) Gout Hypertension Insomnia Knee pain Obstructive sleep apnea Social History household members: spouse Smoking Status: Never smoker alcohol intake: current Current Medications Current Medications Medications: Home Medications lisinopril 20 mg-hydrochlorothiazide 12.5 mg tablet 1 tab PO BID 05/22/18 [History Confirmed 04/26/22] allopurinol 300 mg tablet 300 mg PO BID 06/29/19 [History Confirmed 04/26/22] amlodipine 10 mg tablet 10 mg PO DAILY 04/26/22 [History Confirmed 04/26/22] atorvastatin 20 mg tablet 20 mg PO DAILY 04/26/22 [History Confirmed 04/26/22] metoprolol succinate 50 mg tablet,extended release 24 hr 50 mg PO BID 04/26/22 [History Confirmed 04/26/22] spironolactone 50 mg tablet 50 mg PO BID 04/26/22 [History Confirmed 04/26/22] Visit Medications (administered) Generic Name Dose Route Start Last Admin Trade Name Nikki PRN Reason Stop Dose Admin Dextrose 1,000 mls @ 150 mls/hr 04/26/22 08:15 04/26/22 17:25 D10w IV 0 mls/hr CONT ANYA Infusion Sodium Bicarbonate 150 meq/ 1,150 mls @ 150 mls/hr 04/26/22 09:15 04/26/22 17:27 Dextrose IV 0 mls/hr CONT ANYA Infusion Exam Vital Signs (past 8 hours): - 04/26/22 10:30 04/26/22 10:30 04/26/22 10:45 Pulse Rate 85 99 H Respiratory Rate Blood Pressure 118/57 L Pulse Oximetry 95 91 Oxygen Delivery Method Nasal Cannula Oxygen Flow Rate 2 04/26/22 11:00 04/26/22 11:00 04/26/22 11:15 Pulse Rate 91 H 91 H Respiratory Rate Blood Pressure 125/60 Pulse Oximetry 93 93 Oxygen Delivery Method Oxygen Flow Rate 04/26/22 11:30 04/26/22 11:30 04/26/22 11:45 Pulse Rate 85 80 Respiratory Rate 23 Blood Pressure 127/61 Pulse Oximetry 92 92 Oxygen Delivery Method Nasal Cannula Oxygen Flow Rate 2 04/26/22 12:29 04/26/22 12:00 04/26/22 12:00 Pulse Rate 84 83 Respiratory Rate Blood Pressure 133/60 Pulse Oximetry 93 93 Oxygen Delivery Method Nasal Cannula Oxygen Flow Rate 2 04/26/22 12:15 04/26/22 12:30 04/26/22 12:45 Pulse Rate 82 96 H 95 H Respiratory Rate 23 23 Blood Pressure Pulse Oximetry 93 95 Oxygen Delivery Method Nasal Cannula Oxygen Flow Rate 2 04/26/22 12:51 04/26/22 12:51 04/26/22 13:00 Pulse Rate 96 H Respiratory Rate 20 Blood Pressure 121/64 115/57 L Pulse Oximetry 94 Oxygen Delivery Method Oxygen Flow Rate 04/26/22 13:00 04/26/22 13:15 04/26/22 13:30 Pulse Rate 85 90 Respiratory Rate 23 33 H Blood Pressure 109/54 L Pulse Oximetry 94 96 Oxygen Delivery Method Oxygen Flow Rate 04/26/22 13:30 04/26/22 13:45 04/26/22 14:00 Pulse Rate 89 79 Respiratory Rate 24 20 Blood Pressure 121/57 L Pulse Oximetry 94 95 Oxygen Delivery Method Oxygen Flow Rate 04/26/22 14:00 04/26/22 14:15 04/26/22 14:30 Pulse Rate 77 78 Respiratory Rate 27 H 21 Blood Pressure 113/57 L Pulse Oximetry 96 97 Oxygen Delivery Method Nasal Cannula Oxygen Flow Rate 3 04/26/22 14:30 04/26/22 14:45 04/26/22 15:00 Pulse Rate 94 H 94 H 92 H Respiratory Rate 24 21 20 Blood Pressure Pulse Oximetry 96 97 97 Oxygen Delivery Method Nasal Cannula Oxygen Flow Rate 3 04/26/22 15:15 04/26/22 15:30 04/26/22 15:45 Pulse Rate 96 H 100 H 106 H Respiratory Rate 22 21 24 Blood Pressure Pulse Oximetry 91 99 99 Oxygen Delivery Method Oxygen Flow Rate 04/26/22 15:49 04/26/22 15:49 04/26/22 16:00 Pulse Rate 101 H 105 H Respiratory Rate 16 13 Blood Pressure 118/54 L Pulse Oximetry 99 97 Oxygen Delivery Method Oxygen Flow Rate 04/26/22 16:15 04/26/22 16:30 04/26/22 16:45 Pulse Rate 113 H 118 H 118 H Respiratory Rate 25 H 22 19 Blood Pressure Pulse Oximetry 99 95 96 Oxygen Delivery Method Oxygen Flow Rate 04/26/22 17:00 04/26/22 17:15 04/26/22 17:43 Pulse Rate 116 H 128 H 120 H Respiratory Rate 17 22 Blood Pressure Pulse Oximetry 96 93 96 Oxygen Delivery Method Oxygen Flow Rate 04/26/22 17:45 04/26/22 17:45 Pulse Rate 120 H Respiratory Rate Blood Pressure 130/60 Pulse Oximetry 96 Oxygen Delivery Method Nasal Cannula Oxygen Flow Rate 2 Oxygen Delivery Method Nasal Cannula Oxygen Flow Rate 2 Objective Labs Result Diagrams: 04/26/22 07:23 04/26/22 14:58 Labs: Laboratory Results - last 24 hr 04/26/22 04/26/22 04/26/22 07:23 07:23 07:23 WBC 13.0 H RBC 3.37 L Hgb 11.5 L Hct 35.3 L MCV 104.8 H MCH 34.3 H MCHC 32.7 RDW 15.1 H Plt Count 246 Neut % (Auto) 74.8 Lymph % (Auto) 13.3 L [place] % (Auto) 10.1 Eos % (Auto) 1.1 L Baso % (Auto) 0.7 Neut # (Auto) 9700 H Lymph # (Auto) 1700 [place] # (Auto) 1300 H Eos # (Auto) 100 Baso # (Auto) 100 VBG pH VBG pCO2 VBG pO2 VBG HCO3 VBG Total CO2 VBG O2 Saturation VBG Base Excess Sodium 131 L Potassium 8.1 H* Chloride 107 Carbon Dioxide 12 L BUN 46 H Creatinine 2.48 H Estimated GFR 27 L BUN/Creatinine Ratio 18.5 Glucose 123 H Lactate 0.9 Calcium 9.2 Total Bilirubin 0.5 AST 28 ALT 17 Alkaline Phosphatase 70 Total Creatine Kinase Troponin I NT-Pro-B Natriuret Pep Total Protein 7.4 Albumin 4.5 Globulin 2.9 Albumin/Globulin Ratio 1.6 Urine Color Urine Appearance Urine pH Ur Specific [place] Urine Protein Urine Glucose (UA) Urine Ketones Urine Occult Blood Urine Nitrate Urine Bilirubin Urine Urobilinogen Ur Leukocyte Esterase Urine RBC Urine WBC Ur Squamous Epith Cells Urine Bacteria Ur Culture Indicated? SARS-CoV-2 (PCR) 04/26/22 04/26/22 04/26/22 08:15 08:22 08:25 WBC RBC Hgb Hct MCV MCH MCHC RDW Plt Count Neut % (Auto) Lymph % (Auto) [place] % (Auto) Eos % (Auto) Baso % (Auto) Neut # (Auto) Lymph # (Auto) [place] # (Auto) Eos # (Auto) Baso # (Auto) VBG pH VBG pCO2 VBG pO2 VBG HCO3 VBG Total CO2 VBG O2 Saturation VBG Base Excess Sodium Potassium 9.0 H* Chloride Carbon Dioxide BUN Creatinine Estimated GFR BUN/Creatinine Ratio Glucose Lactate Calcium Total Bilirubin AST ALT Alkaline Phosphatase Total Creatine Kinase Troponin I < 0.012 NT-Pro-B Natriuret Pep Total Protein Albumin Globulin Albumin/Globulin Ratio Urine Color Urine Appearance Urine pH Ur Specific [place] Urine Protein Urine Glucose (UA) Urine Ketones Urine Occult Blood Urine Nitrate Urine Bilirubin Urine Urobilinogen Ur Leukocyte Esterase Urine RBC Urine WBC Ur Squamous Epith Cells Urine Bacteria Ur Culture Indicated? SARS-CoV-2 (PCR) Negative 04/26/22 04/26/22 04/26/22 10:09 10:54 11:40 WBC RBC Hgb Hct MCV MCH MCHC RDW Plt Count Neut % (Auto) Lymph % (Auto) [place] % (Auto) Eos % (Auto) Baso % (Auto) Neut # (Auto) Lymph # (Auto) [place] # (Auto) Eos # (Auto) Baso # (Auto) VBG pH 7.27 L VBG pCO2 35.8 L VBG pO2 66 H VBG HCO3 17 L VBG Total CO2 18 L VBG O2 Saturation 90 H VBG Base Excess -10.0 L Sodium 133 L Potassium 7.2 H* D Chloride 109 H Carbon Dioxide 17 L BUN 43 H Creatinine 2.06 H Estimated GFR 33 L BUN/Creatinine Ratio 20.9 Glucose 164 H Lactate Calcium 9.0 Total Bilirubin AST ALT Alkaline Phosphatase Total Creatine Kinase Troponin I NT-Pro-B Natriuret Pep Total Protein Albumin Globulin Albumin/Globulin Ratio Urine Color Yellow Urine Appearance Clear Urine pH 5.0 Ur Specific [place] <=1.005 Urine Protein Negative Urine Glucose (UA) Negative Urine Ketones Negative Urine Occult Blood Negative Urine Nitrate Negative Urine Bilirubin Negative Urine Urobilinogen 0.2 Ur Leukocyte Esterase Negative Urine RBC None seen Urine WBC None seen Ur Squamous Epith Cells 0-1 /hpf Urine Bacteria None seen Ur Culture Indicated? Cult not indicated SARS-CoV-2 (PCR) 04/26/22 04/26/22 04/26/22 11:40 11:40 14:58 WBC RBC Hgb Hct MCV MCH MCHC RDW Plt Count Neut % (Auto) Lymph % (Auto) [place] % (Auto) Eos % (Auto) Baso % (Auto) Neut # (Auto) Lymph # (Auto) [place] # (Auto) Eos # (Auto) Baso # (Auto) VBG pH VBG pCO2 VBG pO2 VBG HCO3 VBG Total CO2 VBG O2 Saturation VBG Base Excess Sodium 131 L Potassium 5.5 H D Chloride 101 Carbon Dioxide 23 BUN 38 H Creatinine 1.84 H Estimated GFR 38 L BUN/Creatinine Ratio 20.7 Glucose 428 H D Lactate Calcium 8.5 Total Bilirubin AST ALT Alkaline Phosphatase Total Creatine Kinase 252 H Troponin I NT-Pro-B Natriuret Pep 109 Total Protein Albumin Globulin Albumin/Globulin Ratio Urine Color Urine Appearance Urine pH Ur Specific [place] Urine Protein Urine Glucose (UA) Urine Ketones Urine Occult Blood Urine Nitrate Urine Bilirubin Urine Urobilinogen Ur Leukocyte Esterase Urine RBC Urine WBC Ur Squamous Epith Cells Urine Bacteria Ur Culture Indicated? SARS-CoV-2 (PCR) Assessment & Plan Assessment & Plan narrative: NEURO: # Decondition -- Seek PT/OT and OOB as tolerated RESP: -- Encourage IS and OOB -- Titrate down supplemental O2 to maintain goal SpO2 > 88% CVS: # HTN -- Goal SBP < 140 -- AVoid Rodrigo-I and spironolactone : # Acute renal failure -- Secondary to spironolactone and dehydration -- Cont aggressive IVF resuscitation -- Avoid Rodrigo-I or ARB -- Avoid spironolactone -- AVoid nephrotoxin agents -- Monitor UOP -- BMP every 4 hours ENOD: -- Goal BS < 180 D/w RN and patient at bedside. Time Spent With Patient Critical Care time: I spent a total of [] minutes of critical care time on this patient's care today; this time is exclusive of procedural time.
--- NOTE | 2022-04-26 19:18 | CM.MNRNOTE ---
Pt arrived from ER ambulated to bed. Tele in place, IVF infusing. x3 PIV sites.
[2022-04-26] MEDS: SODIUM CHLORIDE 0.9% 1,000 ML 150 ML IV (20:38)
[2022-04-26] MEDS: METOPROLOL ER 50 MG TABLET PO (20:39)
[2022-04-26] MEDS: ACETAMINOPHEN 325 MG TABLET 650 MG PO (20:39)
[2022-04-26 20:48] LABS: BUN Creatinine Ratio 22.4 (6-22); Blood Urea Nitrogen 43 mg/dL (9-20); Calcium 8.7 mg/dL (8.4-10.2); Carbon Dioxide 20 mmol/L (22-32); Estimated Glomerular Filt Rate 36 mL/min (>60); Glucose 132 mg/dL (80-110); HEMOLYSIS < 15 (0-50)
[2022-04-26 20:55] LABS: Chloride 102 mmol/L (98-107); Sodium 133 mmol/L (137-145)
[2022-04-26 20:56] LABS: Potassium 6.1 mmol/L (3.4-5.1)
[2022-04-26] MEDS: DEXTROSE 10 % IN WATER 1,000 ML 75 ML IV (21:10)
[2022-04-26 23:06] LABS: BUN Creatinine Ratio 20.8 (6-22); Blood Urea Nitrogen 40 mg/dL (9-20); Calcium 8.7 mg/dL (8.4-10.2); Carbon Dioxide 20 mmol/L (22-32); Chloride 100 mmol/L (98-107); Estimated Glomerular Filt Rate 36 mL/min (>60); Glucose 188 mg/dL (80-110); HEMOLYSIS < 15 (0-50); Sodium 134 mmol/L (137-145)
--- NOTE | 2022-04-26 23:21 | PC.NURSE ---
Addendum entered by Lurdes Deras R.N. 04/27/22 05:33: 0530- Patient has not slept all night. Vitals changed to Q4hr, NSR on Telemetry. Left elbow wound redressed. Labs redrawn and K+ 6.1. Calcium gluconate given per order. Voiding clear yellow/straw urine. No C/O pain. Will monitor closely. Addendum entered by Lurdes Deras R.N. 04/27/22 03:57: 0330- Lab results discussed with Cristal Plata NP. D10 stopped, NS infusing per order. Repeat blood glucose is being drawn now. Waiting on further orders. Patient is in no distress. Last K+ was 5.6. Will monitor. Original Note: 0- Labs reviewed with Cristal Plata NP. No results yet from Kaexalate. Potassium down from 6.1 to 6.0. BUN and Creat remain unchanged. Will monitor closely, repeat labs at 0300.
[2022-04-26 23:24] LABS: Folate 8.3 ng/mL (2.76-20.0)
[2022-04-27] VITALS (65 sets, daily range): BP systolic 94–142; BP diastolic 55–68; PULSE 67–97; RESP 13–43; TEMP 36.8–37.5; O2SAT 91–97
--- NOTE | 2022-04-27 | DI.RAD.S_ITS ---
PROCEDURE: XR CHEST FOR PICC 1V INDICATIONS: PICC PLACEMENT COMPARISON: [facility], , XR CHEST 1V, 04/26/2022, 8:49. FINDINGS: PICC was placed by the intravenous therapy team from the right side. Fluoroscopic spot film demonstrates the tip of PICC projecting to the area of SVC/right atrial junction. IMPRESSION: Tip of PICC projects to the area of SVC/right atrial junction. Dictated by: Monster Rehman M.D. on 04/27/2022 at 12:48 Approved by: Monster Rehman M.D. on 04/27/2022 at 12:48
[2022-04-27 03:08] LABS: Blood Urea Nitrogen 35 mg/dL (9-20); Calcium 7.6 mg/dL (8.4-10.2); Carbon Dioxide 21 mmol/L (22-32); Chloride 97 mmol/L (98-107); Estimated Glomerular Filt Rate 46 mL/min (>60); HEMOLYSIS < 15 (0-50); Sodium 125 mmol/L (137-145)
[2022-04-27 03:16] LABS: Potassium 5.6 mmol/L (3.4-5.1)
[2022-04-27 03:19] LABS: Glucose 686 mg/dL (80-110)
[2022-04-27] MEDS: SODIUM CHLORIDE 0.9% 1,000 ML 150 ML IV (03:42)
[2022-04-27 04:13] LABS: Albumin 3.5 g/dL (3.5-5.0)
[2022-04-27 04:50] LABS: BUN Creatinine Ratio 23.5 (6-22); Blood Urea Nitrogen 38 mg/dL (9-20); Carbon Dioxide 22 mmol/L (22-32); Chloride 105 mmol/L (98-107); Estimated Glomerular Filt Rate 45 mL/min (>60); HEMOLYSIS < 15 (0-50); Potassium 6.1 mmol/L (3.4-5.1); Sodium 134 mmol/L (137-145)
[2022-04-27 04:51] LABS: Glucose 114 mg/dL (80-110)
[2022-04-27] MEDS: CALCIUM GLUCONATE 4.65 MEQ in SODIUM CHLORIDE 0.9% 50 ML 180 MEQ IV (05:02)
[2022-04-27 05:37] LABS: Add Manual Diff / Slide Review NO; Basophils Absolute Auto 0 /uL (0-100); Basophils Percent Auto 0.7 % (0-2); Eosinophils Absolute Auto 100 /uL (0-450); Eosinophils Percent Auto 1.9 % (2-4); Hematocrit 28.9 % (41-53); Hemoglobin 9.7 g/dL (13.5-17.5); Lymphocytes Absolute Auto 1700 /uL (1100-4500); Mean Corpuscular HGB Conc 33.5 % (30-36); Mean Corpuscular Hemoglobin 34.7 PG (26-34); Mean Corpuscular Volume 103.6 fL (80-100); Monocytes Absolute Auto 800 /uL (0-900); Monocytes Percent Auto 11.5 % (3-14); Neutrophils Absolute Auto 4600 /uL (1500-7000); Neutrophils Percent Auto 62.9 % (50-75); Platelet Count 164 X10^3/uL (150-400); Red Blood Cell Count 2.79 X10^6/uL (4.5-5.9); Red Cell Distribution Width 15.1 % (11.6-14.8); White Blood Cell Count 7.4 X10^3/uL (4.5-11.0)
[2022-04-27 06:04] LABS: BUN Creatinine Ratio 22.2 (6-22); Blood Urea Nitrogen 35 mg/dL (9-20); Calcium 8.2 mg/dL (8.4-10.2); Carbon Dioxide 23 mmol/L (22-32); Chloride 108 mmol/L (98-107); Estimated Glomerular Filt Rate 46 mL/min (>60); Glucose 107 mg/dL (80-110); HEMOLYSIS < 15 (0-50); Sodium 135 mmol/L (137-145)
[2022-04-27 06:05] LABS: Potassium 5.9 mmol/L (3.4-5.1)
[2022-04-27 07:28] LABS: BUN Creatinine Ratio 22.3 (6-22); Blood Urea Nitrogen 33 mg/dL (9-20); Calcium 8.4 mg/dL (8.4-10.2); Carbon Dioxide 24 mmol/L (22-32); Chloride 108 mmol/L (98-107); Estimated Glomerular Filt Rate 50 mL/min (>60); Glucose 109 mg/dL (80-110); HEMOLYSIS < 15 (0-50); Sodium 136 mmol/L (137-145)
[2022-04-27] MEDS: METOPROLOL ER 50 MG TABLET PO ×2 (08:22→21:18)
[2022-04-27] MEDS: HEPARIN 5,000 UNIT/ML VIAL 5000 UNIT SUBCUT ×2 (08:23→21:19)
--- NOTE | 2022-04-27 09:06 | P.TELICUPN_ITS ---
Subjective Subjective If camera was activated, add TeleICU A-V statement: Rounded with ICU team over two way audio visual system. Patient Summary: 71 yo Man with PMH Of ANASTASIA, HL, gout, and HTN (on spironolacton e and lisinopril) who presented with poor PO intake, diarjhea, and muscle twitching and found to have EUGENIE (Cr 2.48) and hyperkalemia (K as high as 9). Pt. given IVF, albuterol, insuline/dextrose, calcium, and sodium bicarb and repeat K came down to 5.5 and Cr 1.84 and patient admitted to ICU for further management. Interval history: recent events: Cr continues to trend down and is now 1.48 but K has been hovering 5.6-6.1 ( the last K this morning at 7 am was 6.0). Current Medications Current Medications Medications: Home Medications lisinopril 20 mg-hydrochlorothiazide 12.5 mg tablet 1 tab PO BID 05/22/18 [History Confirmed 04/26/22] allopurinol 300 mg tablet 300 mg PO BID 06/29/19 [History Confirmed 04/26/22] amlodipine 10 mg tablet 10 mg PO DAILY 04/26/22 [History Confirmed 04/26/22] atorvastatin 20 mg tablet 20 mg PO DAILY 04/26/22 [History Confirmed 04/26/22] metoprolol succinate 50 mg tablet,extended release 24 hr 50 mg PO BID 04/26/22 [History Confirmed 04/26/22] spironolactone 50 mg tablet 50 mg PO BID 04/26/22 [History Confirmed 04/26/22] Visit Medications (administered) Generic Name Dose Route Start Last Admin Trade Name Freq PRN Reason Stop Dose Admin Acetaminophen 650 mg 04/26/22 12:04 04/26/22 20:39 Acetaminophen 325 Mg Tablet PO 650 mg Q6HR PRN Administration Fever/Mild Pain (1-3) Heparin Sodium (Porcine) 5,000 unit 04/26/22 21:00 04/27/22 08:23 Heparin 5,000 Unit/Ml Vial SUBCUT 5,000 unit BID ANYA Administration Metoprolol Succinate 50 mg 04/26/22 21:00 04/27/22 08:22 Metoprolol Er 50 Mg Tablet PO 50 mg BID ANYA Administration Objective Labs Result Diagrams: 04/27/22 05:20 04/27/22 07:09 Labs: Laboratory Results - last 24 hr 04/26/22 04/26/22 04/26/22 07:23 10:09 10:54 WBC RBC Hgb Hct MCV MCH MCHC RDW Plt Count Neut % (Auto) Lymph % (Auto) [place] % (Auto) Eos % (Auto) Baso % (Auto) Neut # (Auto) Lymph # (Auto) [place] # (Auto) Eos # (Auto) Baso # (Auto) VBG pH 7.27 L VBG pCO2 35.8 L VBG pO2 66 H VBG HCO3 17 L VBG Total CO2 18 L VBG O2 Saturation 90 H VBG Base Excess -10.0 L Sodium Potassium Chloride Carbon Dioxide BUN Creatinine Estimated GFR BUN/Creatinine Ratio Glucose Lactate 0.9 Calcium Total Creatine Kinase NT-Pro-B Natriuret Pep Albumin Folate Urine Color Yellow Urine Appearance Clear Urine pH 5.0 Ur Specific [place] <=1.005 Urine Protein Negative Urine Glucose (UA) Negative Urine Ketones Negative Urine Occult Blood Negative Urine Nitrate Negative Urine Bilirubin Negative Urine Urobilinogen 0.2 Ur Leukocyte Esterase Negative Urine RBC None seen Urine WBC None seen Ur Squamous Epith Cells 0-1 /hpf Urine Bacteria None seen Ur Culture Indicated? Cult not indicated Nasal Screen MRSA (PCR) 04/26/22 04/26/22 04/26/22 11:40 11:40 11:40 WBC RBC Hgb Hct MCV MCH MCHC RDW Plt Count Neut % (Auto) Lymph % (Auto) [place] % (Auto) Eos % (Auto) Baso % (Auto) Neut # (Auto) Lymph # (Auto) [place] # (Auto) Eos # (Auto) Baso # (Auto) VBG pH VBG pCO2 VBG pO2 VBG HCO3 VBG Total CO2 VBG O2 Saturation VBG Base Excess Sodium 133 L Potassium 7.2 H* D Chloride 109 H Carbon Dioxide 17 L BUN 43 H Creatinine 2.06 H Estimated GFR 33 L BUN/Creatinine Ratio 20.9 Glucose 164 H Lactate Calcium 9.0 Total Creatine Kinase 252 H NT-Pro-B Natriuret Pep 109 Albumin Folate Urine Color Urine Appearance Urine pH Ur Specific [place] Urine Protein Urine Glucose (UA) Urine Ketones Urine Occult Blood Urine Nitrate Urine Bilirubin Urine Urobilinogen Ur Leukocyte Esterase Urine RBC Urine WBC Ur Squamous Epith Cells Urine Bacteria Ur Culture Indicated? Nasal Screen MRSA (PCR) 04/26/22 04/26/22 04/26/22 14:58 19:30 20:15 WBC RBC Hgb Hct MCV MCH MCHC RDW Plt Count Neut % (Auto) Lymph % (Auto) [place] % (Auto) Eos % (Auto) Baso % (Auto) Neut # (Auto) Lymph # (Auto) [place] # (Auto) Eos # (Auto) Baso # (Auto) VBG pH VBG pCO2 VBG pO2 VBG HCO3 VBG Total CO2 VBG O2 Saturation VBG Base Excess Sodium 131 L 133 L Potassium 5.5 H D 6.1 H Chloride 101 102 Carbon Dioxide 23 20 L BUN 38 H 43 H Creatinine 1.84 H 1.92 H Estimated GFR 38 L 36 L BUN/Creatinine Ratio 20.7 22.4 H Glucose 428 H D 132 H D Lactate Calcium 8.5 8.7 Total Creatine Kinase NT-Pro-B Natriuret Pep Albumin Folate Urine Color Urine Appearance Urine pH Ur Specific [place] Urine Protein Urine Glucose (UA) Urine Ketones Urine Occult Blood Urine Nitrate Urine Bilirubin Urine Urobilinogen Ur Leukocyte Esterase Urine RBC Urine WBC Ur Squamous Epith Cells Urine Bacteria Ur Culture Indicated? Nasal Screen MRSA (PCR) Negative for mrsa 04/26/22 04/26/22 04/27/22 20:15 22:50 02:50 WBC RBC Hgb Hct MCV MCH MCHC RDW Plt Count Neut % (Auto) Lymph % (Auto) [place] % (Auto) Eos % (Auto) Baso % (Auto) Neut # (Auto) Lymph # (Auto) [place] # (Auto) Eos # (Auto) Baso # (Auto) VBG pH VBG pCO2 VBG pO2 VBG HCO3 VBG Total CO2 VBG O2 Saturation VBG Base Excess Sodium 134 L 125 L Potassium 6.0 H 5.6 H Chloride 100 97 L Carbon Dioxide 20 L 21 L BUN 40 H 35 H Creatinine 1.92 H 1.59 H Estimated GFR 36 L 46 L BUN/Creatinine Ratio 20.8 22.0 Glucose 188 H 686 H* D Lactate Calcium 8.7 7.6 L Total Creatine Kinase NT-Pro-B Natriuret Pep Albumin Folate 8.3 Urine Color Urine Appearance Urine pH Ur Specific [place] Urine Protein Urine Glucose (UA) Urine Ketones Urine Occult Blood Urine Nitrate Urine Bilirubin Urine Urobilinogen Ur Leukocyte Esterase Urine RBC Urine WBC Ur Squamous Epith Cells Urine Bacteria Ur Culture Indicated? Nasal Screen MRSA (PCR) 04/27/22 04/27/22 04/27/22 04:00 04:00 05:20 WBC 7.4 RBC 2.79 L Hgb 9.7 L Hct 28.9 L MCV 103.6 H MCH 34.7 H MCHC 33.5 RDW 15.1 H Plt Count 164 Neut % (Auto) 62.9 Lymph % (Auto) 23.0 L [place] % (Auto) 11.5 Eos % (Auto) 1.9 L Baso % (Auto) 0.7 Neut # (Auto) 4600 Lymph # (Auto) 1700 [place] # (Auto) 800 Eos # (Auto) 100 Baso # (Auto) 0 VBG pH VBG pCO2 VBG pO2 VBG HCO3 VBG Total CO2 VBG O2 Saturation VBG Base Excess Sodium 134 L Potassium 6.1 H Chloride 105 Carbon Dioxide 22 BUN 38 H Creatinine 1.62 H Estimated GFR 45 L BUN/Creatinine Ratio 23.5 H Glucose 114 H D Lactate Calcium 8.0 L Total Creatine Kinase NT-Pro-B Natriuret Pep Albumin 3.5 Folate Urine Color Urine Appearance Urine pH Ur Specific [place] Urine Protein Urine Glucose (UA) Urine Ketones Urine Occult Blood Urine Nitrate Urine Bilirubin Urine Urobilinogen Ur Leukocyte Esterase Urine RBC Urine WBC Ur Squamous Epith Cells Urine Bacteria Ur Culture Indicated? Nasal Screen MRSA (PCR) 04/27/22 04/27/22 05:20 07:09 WBC RBC Hgb Hct MCV MCH MCHC RDW Plt Count Neut % (Auto) Lymph % (Auto) [place] % (Auto) Eos % (Auto) Baso % (Auto) Neut # (Auto) Lymph # (Auto) [place] # (Auto) Eos # (Auto) Baso # (Auto) VBG pH VBG pCO2 VBG pO2 VBG HCO3 VBG Total CO2 VBG O2 Saturation VBG Base Excess Sodium 135 L 136 L Potassium 5.9 H 6.0 H Chloride 108 H 108 H Carbon Dioxide 23 24 BUN 35 H 33 H Creatinine 1.58 H 1.48 H Estimated GFR 46 L 50 L BUN/Creatinine Ratio 22.2 H 22.3 H Glucose 107 109 Lactate Calcium 8.2 L 8.4 Total Creatine Kinase NT-Pro-B Natriuret Pep Albumin Folate Urine Color Urine Appearance Urine pH Ur Specific [place] Urine Protein Urine Glucose (UA) Urine Ketones Urine Occult Blood Urine Nitrate Urine Bilirubin Urine Urobilinogen Ur Leukocyte Esterase Urine RBC Urine WBC Ur Squamous Epith Cells Urine Bacteria Ur Culture Indicated? Nasal Screen MRSA (PCR) Exam Vital Signs (past 8 hours): - 04/27/22 01:15 04/27/22 01:30 04/27/22 01:45 Temperature Pulse Rate 80 81 79 Respiratory Rate 16 20 19 Blood Pressure Pulse Oximetry 96 96 97 Oxygen Delivery Method Oxygen Flow Rate 04/27/22 01:59 04/27/22 02:00 04/27/22 02:00 Temperature Pulse Rate 81 81 Respiratory Rate 20 13 Blood Pressure 120/56 L Pulse Oximetry 96 96 Oxygen Delivery Method Oxygen Flow Rate 04/27/22 02:15 04/27/22 02:30 04/27/22 02:45 Temperature Pulse Rate 76 78 77 Respiratory Rate 14 24 27 H Blood Pressure Pulse Oximetry 95 96 95 Oxygen Delivery Method Oxygen Flow Rate 04/27/22 03:00 04/27/22 03:00 04/27/22 03:15 Temperature Pulse Rate 75 75 Respiratory Rate 17 19 Blood Pressure 109/56 L Pulse Oximetry 94 94 Oxygen Delivery Method Oxygen Flow Rate 04/27/22 03:30 04/27/22 03:45 04/27/22 04:00 Temperature Pulse Rate 79 67 Respiratory Rate 19 18 Blood Pressure 114/68 Pulse Oximetry 97 94 Oxygen Delivery Method Oxygen Flow Rate 04/27/22 04:00 04/27/22 04:30 04/27/22 05:00 Temperature Pulse Rate 77 75 Respiratory Rate 20 18 Blood Pressure 120/58 L Pulse Oximetry 95 95 Oxygen Delivery Method Oxygen Flow Rate 04/27/22 05:00 04/27/22 05:29 04/27/22 05:30 Temperature Pulse Rate 80 71 Respiratory Rate 25 H 22 Blood Pressure Pulse Oximetry 97 94 Oxygen Delivery Method Nasal Cannula Oxygen Flow Rate 04/27/22 08:22 04/27/22 08:00 Temperature 98.6 F Pulse Rate 74 71 Respiratory Rate 17 Blood Pressure 110/55 L 110/55 L Pulse Oximetry 96 Oxygen Delivery Method Oxygen Flow Rate 0 Oxygen Delivery Method Nasal Cannula Oxygen Flow Rate 0 Narrative Exam Narrative: patient seen resting comfortably in bed through twoway audio visual system. Assessment & Plan Assessment & Plan narrative: Assessment Hyperkalemia EUGENIE Discussion: 71 yo man with PMH Of HTN, ANASTASIA, HL,and gout admitted with hyperkalemia and EUGENIE secondary to dehydration and exacerbated by spironolactone and lisinopril. Cr continues to improve and K initially improved from 7 yo 5.5 but is now plateaued at 5.6-6.1. Patient still on NS at 150 cc/hr. Total 24H I/O's is 5.1 L in and 5.6 L out (net neg 0.5 L). Patient's last dose of Vaishnavi exalate was last night at 21:00 30 gm. Plan -given patient is 0.5 L net neg since admission, will bolus NS 1L and continue NS 150 cc/hr -give Kayexalate 60 gm PO now - repeat BMP in 4 hours and if K still > 5.5 will give another dose of kayexalate this evening -continue Metopolrol 50 mg XL BID (if BP trends lower can reduce dose to once a day or 25 mg QD) -continue to hold lisinopril and spironolactone PPx: SQ heparin CCT spent 40 min Time Spent With Patient Critical Care time: I spent a total of [] minutes of critical care time on this patient's care today; this time is exclusive of procedural time.
--- NOTE | 2022-04-27 09:47 | DI.RAD.S_ITS ---
PROCEDURE: XR ELBOW LT MIN 3V INDICATIONS: left elbow pain with decreased ROM s/p fall TECHNIQUE: 3 views of the elbow were acquired. COMPARISON: None. FINDINGS: Bones: No fractures or dislocations. No suspicious bony lesions. Soft tissues: No elbow joint effusion. No suspicious soft tissue calcifications. IMPRESSION: Normal left elbow Dictated by: Monster Rehman M.D. on 04/27/2022 at 10:26 Approved by: Monster Rehman M.D. on 04/27/2022 at 10:27
[2022-04-27 09:51] LABS: Magnesium 1.3 mg/dL (1.6-2.3)
[2022-04-27] MEDS: SODIUM CHLORIDE 0.9% 1,000 ML 1000 ML IV (10:23)
[2022-04-27 10:32] LABS: Alanine Aminotransferase 15 IU/L (<50); Albumin 3.7 g/dL (3.5-5.0); Albumin Globulin Ratio 1.4 (1.0-2.8); Alkaline Phosphatase 53 U/L (38-126); Aspartate Aminotransferase 24 IU/L (17-59); BUN Creatinine Ratio 21.6 (6-22); Bilirubin Total 0.3 mg/dL (0.2-1.3); Blood Urea Nitrogen 29 mg/dL (9-20); Calcium 8.5 mg/dL (8.4-10.2); Carbon Dioxide 23 mmol/L (22-32); Chloride 110 mmol/L (98-107); Estimated Glomerular Filt Rate 56 mL/min (>60); Globulin 2.6 g/dL (1.7-4.1); Glucose 122 mg/dL (80-110); HEMOLYSIS < 15 (0-50); Potassium 6.1 mmol/L (3.4-5.1); Sodium 137 mmol/L (137-145); Total Protein 6.3 g/dL (6.3-8.2)
[2022-04-27] MEDS: SODIUM POLYSTYRENE SULFON/SORB 15 GM/60 ML CUP 30 GM PO (10:41)
--- NOTE | 2022-04-27 11:25 | PC.NURSE ---
Addendum entered by Mary Hurtado R.N. 04/27/22 14:50: 1403 Critical lab of K 6.3, called and left a message for Dr Cao, no new orders at this time Original Note: Pt received 30mg Kaexulate, 1 L bolus NS, pharmacy called concerning Mag replacement due to Mag of 1.3, called Dr Mindi robertson to hold off on replacement until K is below 4.0.
[2022-04-27 11:29] LABS: Vitamin B12 346 pg/mL (239-931)
--- NOTE | 2022-04-27 12:53 | PM.PN.1 ---
Subjective Subjective Date Patient Seen: 04/27/22 Interval history: This morning the pt reports overall feeling significantly improved. He states that his muscle twitching has improved dramatically. He was unable to sleep well last night due to frequent BMs from the Kayexalate, and also anxiety about his prognosis. He denies any chest pain or SOB. He felt palpitations only briefly once last night. He has been urinating frequently. The pt does report having significant left elbow pain from his fall at home. Exam Vital Signs (past 8 hours): - 04/27/22 05:00 04/27/22 05:00 04/27/22 05:29 Temperature Pulse Rate 80 Respiratory Rate 25 H Blood Pressure 120/58 L Pulse Oximetry 97 Oxygen Delivery Method Nasal Cannula Oxygen Flow Rate 04/27/22 05:30 04/27/22 08:22 04/27/22 08:00 Temperature 98.6 F Pulse Rate 71 74 71 Respiratory Rate 22 17 Blood Pressure 110/55 L 110/55 L Pulse Oximetry 94 96 Oxygen Delivery Method Oxygen Flow Rate 0 04/27/22 08:52 04/27/22 09:00 04/27/22 12:46 Temperature 98.7 F Pulse Rate 82 81 Respiratory Rate 22 Blood Pressure 120/59 L 132/60 Pulse Oximetry 92 Oxygen Delivery Method Room Air Oxygen Flow Rate 2 Oxygen Delivery Method Room Air Oxygen Flow Rate 2 Narrative Exam Narrative: Gen: NAD, sitting comfortably in bed, appears well, pleasantly conversant CV: RRR, no murmurs Resp: clear to auscultation bilaterally Abd: soft, nontender, nondistended Ext: no edema; left elbow tender to palpation, flexion only to 90 degrees without pain Objective Labs Result Diagrams: 04/27/22 05:20 04/27/22 10:11 Labs: Laboratory Results - last 24 hr 04/26/22 04/26/22 04/26/22 11:40 14:58 19:30 WBC RBC Hgb Hct MCV MCH MCHC RDW Plt Count Neut % (Auto) Lymph % (Auto) [place] % (Auto) Eos % (Auto) Baso % (Auto) Neut # (Auto) Lymph # (Auto) [place] # (Auto) Eos # (Auto) Baso # (Auto) Sodium 131 L Potassium 5.5 H D Chloride 101 Carbon Dioxide 23 BUN 38 H Creatinine 1.84 H Estimated GFR 38 L BUN/Creatinine Ratio 20.7 Glucose 428 H D Calcium 8.5 Magnesium Total Bilirubin AST ALT Alkaline Phosphatase Total Creatine Kinase 252 H Total Protein Albumin Globulin Albumin/Globulin Ratio Vitamin B12 Folate Nasal Screen MRSA (PCR) Negative for mrsa 04/26/22 04/26/22 04/26/22 20:15 20:15 22:50 WBC RBC Hgb Hct MCV MCH MCHC RDW Plt Count Neut % (Auto) Lymph % (Auto) [place] % (Auto) Eos % (Auto) Baso % (Auto) Neut # (Auto) Lymph # (Auto) [place] # (Auto) Eos # (Auto) Baso # (Auto) Sodium 133 L 134 L Potassium 6.1 H 6.0 H Chloride 102 100 Carbon Dioxide 20 L 20 L BUN 43 H 40 H Creatinine 1.92 H 1.92 H Estimated GFR 36 L 36 L BUN/Creatinine Ratio 22.4 H 20.8 Glucose 132 H D 188 H Calcium 8.7 8.7 Magnesium Total Bilirubin AST ALT Alkaline Phosphatase Total Creatine Kinase Total Protein Albumin Globulin Albumin/Globulin Ratio Vitamin B12 Folate 8.3 Nasal Screen MRSA (PCR) 04/27/22 04/27/22 04/27/22 02:50 04:00 04:00 WBC RBC Hgb Hct MCV MCH MCHC RDW Plt Count Neut % (Auto) Lymph % (Auto) [place] % (Auto) Eos % (Auto) Baso % (Auto) Neut # (Auto) Lymph # (Auto) [place] # (Auto) Eos # (Auto) Baso # (Auto) Sodium 125 L 134 L Potassium 5.6 H 6.1 H Chloride 97 L 105 Carbon Dioxide 21 L 22 BUN 35 H 38 H Creatinine 1.59 H 1.62 H Estimated GFR 46 L 45 L BUN/Creatinine Ratio 22.0 23.5 H Glucose 686 H* D 114 H D Calcium 7.6 L 8.0 L Magnesium Total Bilirubin AST ALT Alkaline Phosphatase Total Creatine Kinase Total Protein Albumin 3.5 Globulin Albumin/Globulin Ratio Vitamin B12 Folate Nasal Screen MRSA (PCR) 04/27/22 04/27/22 04/27/22 04:00 05:20 05:20 WBC 7.4 RBC 2.79 L Hgb 9.7 L Hct 28.9 L MCV 103.6 H MCH 34.7 H MCHC 33.5 RDW 15.1 H Plt Count 164 Neut % (Auto) 62.9 Lymph % (Auto) 23.0 L [place] % (Auto) 11.5 Eos % (Auto) 1.9 L Baso % (Auto) 0.7 Neut # (Auto) 4600 Lymph # (Auto) 1700 [place] # (Auto) 800 Eos # (Auto) 100 Baso # (Auto) 0 Sodium 135 L Potassium 5.9 H Chloride 108 H Carbon Dioxide 23 BUN 35 H Creatinine 1.58 H Estimated GFR 46 L BUN/Creatinine Ratio 22.2 H Glucose 107 Calcium 8.2 L Magnesium 1.3 L Total Bilirubin AST ALT Alkaline Phosphatase Total Creatine Kinase Total Protein Albumin Globulin Albumin/Globulin Ratio Vitamin B12 Folate Nasal Screen MRSA (PCR) 04/27/22 04/27/22 04/27/22 07:09 10:11 10:11 WBC RBC Hgb Hct MCV MCH MCHC RDW Plt Count Neut % (Auto) Lymph % (Auto) [place] % (Auto) Eos % (Auto) Baso % (Auto) Neut # (Auto) Lymph # (Auto) [place] # (Auto) Eos # (Auto) Baso # (Auto) Sodium 136 L 137 Potassium 6.0 H 6.1 H Chloride 108 H 110 H Carbon Dioxide 24 23 BUN 33 H 29 H Creatinine 1.48 H 1.34 H Estimated GFR 50 L 56 L BUN/Creatinine Ratio 22.3 H 21.6 Glucose 109 122 H Calcium 8.4 8.5 Magnesium Total Bilirubin 0.3 AST 24 ALT 15 Alkaline Phosphatase 53 Total Creatine Kinase Total Protein 6.3 Albumin 3.7 Globulin 2.6 Albumin/Globulin Ratio 1.4 Vitamin B12 346 Folate Nasal Screen MRSA (PCR) [facility] Medical History Gout Hypertension Insomnia Knee pain Obstructive sleep apnea Family History Father Cancer Mother Cancer Social History household members: spouse Smoking Status: Never smoker alcohol intake: current Assessment & Plan Assessment & Plan narrative: Ward Francis is a 71-year-old male with past medical history of hypertension, hyperlipidemia, ANASTASIA, and gout who presented to the emergency department with weakness, diaphoresis and twitching, found to have severe hyperkalemia and EUGENIE. # Severe acute hyperkalemia: Likely secondary to dehydration with lisinopril and spirinolactone. Highest K of 9.0, down to 5.5 after treatment in the ED, now plateaued around 5.9-6.1. Net volume negative thus far. - Continue q4h BMP checks - 1L NS bolus, followed by continued 150cc/hr - Repeat Kayexalate now - D/C home Lisinopril and Spirinolactone - Telemetry - PICC line due to difficulty with blood draws and required frequency # EUGENIE: Appears to be prerenal, improving with hydration. Trending down from 2.34, now 1.34. - Continue IVF as above # Sinus tachycardia in setting of HFpEF: Resolved. Echo showed EF 60-65% with stage I diastolic dysfunction. Likely due to several doses of nebulized albuterol. # Mild hyponatremia: Likely hypotonic secondary to dehydration. Resolved. # Macrocytic anemia: Further drop in H/H likely dilutional. B12 and folate levels normal. No evidence active bleed. - Continue to trend, not meeting transfusion criteria # Acute hypoxic respiratory failure: Initially requiring 6L of oxygen, currently at 2L. CXR yesterday normal. Lungs clear currently. - Will continue to monitor, oxygen requirement has been intermittent # Hypertension, chronic: BP in good range - Continue home Metoprolol # Gout, chronic: Asymptomatic currently - Hold home allopurinol due to EUGENIE # Hyperlipidemia, chronic - Hold home statin due to elevated CK # Left elbow pain: From ground level fall - Xray today - Icing PRN # Anxiety: Pt with significant anxiety and resultant difficulty with sleep due to diagnoses - Ativan PRN - Melatonin PRN for sleep Dispo:? Pending stabilization of potassium. Should be able to return home at discharge. Code: Full Diet: Low potassium DVT ppx: Heparin Time Spent With Patient Critical Care time: I spent a total of [] minutes of critical care time on this patient's care today; this time is exclusive of procedural time.
[2022-04-27 14:18] LABS: BUN Creatinine Ratio 21.7 (6-22); Blood Urea Nitrogen 26 mg/dL (9-20); Calcium 8.8 mg/dL (8.4-10.2); Carbon Dioxide 23 mmol/L (22-32); Chloride 110 mmol/L (98-107); Estimated Glomerular Filt Rate > 60 mL/min (>60); Glucose 121 mg/dL (80-110); HEMOLYSIS 16 (0-50); Sodium 139 mmol/L (137-145)
[2022-04-27 14:21] LABS: Potassium 6.3 mmol/L (3.4-5.1)
[2022-04-27] MEDS: INSULIN REGULAR 100 UNIT/ML 3 ML VIAL 10 UNIT IV (15:37)
[2022-04-27] MEDS: CALCIUM GLUCONATE 9.3 MEQ in SODIUM CHLORIDE 0.9% 50 ML 140 MEQ IV (15:38)
[2022-04-27] MEDS: DEXTROSE 10 % IN WATER 250 ML 999 ML IV (15:39)
--- NOTE | 2022-04-27 15:39 | CM.DANOTE ---
Patient is a 71 yo male who was admitted on 04/26/22 for Limbs not working/SOB. Pt has [facility] and [employer] for insurance and his PCP is Dr. Eleazar Hewitt. EMR was reviewed. Per MD, pt admitted with severe hypokalemia and almost attempted hospital transfer but pt's potassium stabilized some and decreased and admitted to ICU and his EF showed 60-65%. Pt has no hx of admissions at [facility] and lives at home in [place] with his supportive spouse and is independent at baseline. Per RN, independent in room and no ambulation concerns or d/c concerns other than pt's labs continue to climb and not be normal and have a call out to w/e on-call Dr. Cao. Plan: SW to follow closely for possible hospital transfer vs plan of home with spouse when medically stable and any further identified needs. ROXIE Conklin Discharge Planning/Care Management CM Discharge Assessment Start: 04/27/22 15:36 Freq: Status: Active Protocol: Document 04/27/22 15:36 BF (Rec: 04/27/22 15:38 BF [id number]) Discharge Planning Assessment Assigned Lining Stitcher ROXIE Freeman DPOA/Assigned Designee Name spouse Beth Contact Information [phone] Advance Directives? No Advance Directives on File No History Provided By Patient,Significant Other, Medical Record Has Patient been admitted in last 30 No days? Prior Living Arrangements House Household Members spouse Type of transporation used prior to Drives own vehicle admit Independent with ADL's Yes Is patient alert and oriented? Yes Needs Assistance With Home Chores / Shopping Caregiver for Another No Barriers to Discharge No Discharge Plan Home Transportation Arrangement spouse is safe for home vs possible hospital transfer Referrals Initiated None needed Additional Comment Pending POC and needs Review Status In Process Please Provide Date Initial DC 04/27/22 Assessment Was Performed Next Review Type Continued Stay Review
[2022-04-27 18:45] LABS: Alanine Aminotransferase 15 IU/L (<50); Albumin 3.6 g/dL (3.5-5.0); Albumin Globulin Ratio 1.4 (1.0-2.8); Alkaline Phosphatase 48 U/L (38-126); Aspartate Aminotransferase 25 IU/L (17-59); BUN Creatinine Ratio 19.5 (6-22); Bilirubin Total 0.2 mg/dL (0.2-1.3); Blood Urea Nitrogen 26 mg/dL (9-20); Calcium 8.7 mg/dL (8.4-10.2); Carbon Dioxide 22 mmol/L (22-32); Chloride 110 mmol/L (98-107); Estimated Glomerular Filt Rate 56 mL/min (>60); Globulin 2.6 g/dL (1.7-4.1); Glucose 100 mg/dL (80-110); HEMOLYSIS 17 (0-50); Sodium 137 mmol/L (137-145); Total Protein 6.2 g/dL (6.3-8.2)
[2022-04-27 18:48] LABS: Potassium 6.3 mmol/L (3.4-5.1)
[2022-04-27] MEDS: MELATONIN 3 MG TABLET 6 MG PO (21:18)
[2022-04-27 22:00] LABS: Blood Urea Nitrogen 28 mg/dL (9-20); Calcium 8.4 mg/dL (8.4-10.2); Carbon Dioxide 21 mmol/L (22-32); Chloride 107 mmol/L (98-107); Estimated Glomerular Filt Rate > 60 mL/min (>60); Glucose 103 mg/dL (80-110); HEMOLYSIS < 15 (0-50); Sodium 137 mmol/L (137-145)
[2022-04-27 22:02] LABS: Potassium 6.1 mmol/L (3.4-5.1)
[2022-04-27 22:10] LABS: Cholesterol 102 mg/dL (140-199); HDL Cholesterol 52 mg/dL (40-60); LDL Cholesterol Calculated 30 mg/dL (<100); Triglycerides 98 mg/dL (35-150)
[2022-04-28] VITALS (47 sets, daily range): BP systolic 115–163; BP diastolic 60–73; PULSE 64–99; RESP 16–21; TEMP 36.6–37.4; O2SAT 93–97
--- NOTE | 2022-04-28 00:42 | PC.NURSE ---
0000- Patient requests to be able to sleep tonight. Patient states he has not slept in over 24hrs. Vitals WNL and patient is on heart monitor. Will allow him to sleep and get vitals if he awakes during the night.
[2022-04-28 05:13] LABS: Add Manual Diff / Slide Review NO; Basophils Absolute Auto 100 /uL (0-100); Basophils Percent Auto 0.7 % (0-2); Eosinophils Absolute Auto 300 /uL (0-450); Eosinophils Percent Auto 3.6 % (2-4); Hematocrit 29.5 % (41-53); Hemoglobin 9.9 g/dL (13.5-17.5); Lymphocytes Absolute Auto 1700 /uL (1100-4500); Lymphocytes Percent Auto 21.8 % (25-40); Mean Corpuscular HGB Conc 33.4 % (30-36); Mean Corpuscular Volume 104.8 fL (80-100); Monocytes Absolute Auto 900 /uL (0-900); Monocytes Percent Auto 11.2 % (3-14); Neutrophils Absolute Auto 4900 /uL (1500-7000); Neutrophils Percent Auto 62.7 % (50-75); Platelet Count 181 X10^3/uL (150-400); Red Blood Cell Count 2.82 X10^6/uL (4.5-5.9); White Blood Cell Count 7.8 X10^3/uL (4.5-11.0)
[2022-04-28 05:27] LABS: BUN Creatinine Ratio 22.1 (6-22); Blood Urea Nitrogen 23 mg/dL (9-20); Calcium 8.5 mg/dL (8.4-10.2); Carbon Dioxide 22 mmol/L (22-32); Chloride 107 mmol/L (98-107); Estimated Glomerular Filt Rate > 60 mL/min (>60); Glucose 95 mg/dL (80-110); HEMOLYSIS < 15 (0-50); Sodium 136 mmol/L (137-145)
[2022-04-28 05:31] LABS: Potassium 5.6 mmol/L (3.4-5.1)
[2022-04-28] MEDS: METOPROLOL ER 50 MG TABLET PO ×2 (08:18→20:57)
[2022-04-28] MEDS: HEPARIN 5,000 UNIT/ML VIAL 5000 UNIT SUBCUT ×2 (08:18→20:57)
[2022-04-28 08:33] LABS: Magnesium 1.3 mg/dL (1.6-2.3)
[2022-04-28 09:01] LABS: BUN Creatinine Ratio 21.6 (6-22); Blood Urea Nitrogen 22 mg/dL (9-20); Calcium 8.8 mg/dL (8.4-10.2); Carbon Dioxide 23 mmol/L (22-32); Chloride 108 mmol/L (98-107); Estimated Glomerular Filt Rate > 60 mL/min (>60); Glucose 98 mg/dL (80-110); HEMOLYSIS 18 (0-50); Sodium 136 mmol/L (137-145)
--- NOTE | 2022-04-28 09:05 | P.TELICUPN_ITS ---
Subjective Subjective If camera was activated, add TeleICU A-V statement: Patient seen with audio visual system (system was malfunctioning so patient could hear me but not see me but I was able to hear and see patient) Patient Summary:? 71 yo Man with PMH Of ANASTASIA, HL, gout, and HTN (on spironolactone and lisinopril) who presented with poor PO intake, diarjhea, and muscle twitching and found to have EUGENIE (Cr 2.48) and hyperkalemia (K as high as 9).? Pt. given IVF, albuterol, insuline/dextrose, calcium, and sodium bicarb and repeat K came down to 5.5 and Cr 1.84 and patient admitted to ICU for further management. K plateaued 5.6-6.3 despite IVF and lokelma Date Patient Seen: 04/28/22 Patient Location: ICU Provider location (State): [place] Interval history: Recent history: Yesterday afternoon K increased to 6.3 despite Kayexalate 30 gm and IVF bolus of 1 L. Pt. given insulin and dextrose and K went down to 5.6 but now back up to 5.9. Creatinine continues to trend down and has nearly normalized at 1.02 and urine output has been very good. total 24 H I/O's is 2 L in and 3.37 L out with net neg of 1.3 L. Current Medications Current Medications Medications: Home Medications lisinopril 20 mg-hydrochlorothiazide 12.5 mg tablet 1 tab PO BID 05/22/18 [History Confirmed 04/26/22] allopurinol 300 mg tablet 300 mg PO BID 06/29/19 [History Confirmed 04/26/22] amlodipine 10 mg tablet 10 mg PO DAILY 04/26/22 [History Confirmed 04/26/22] atorvastatin 20 mg tablet 20 mg PO DAILY 04/26/22 [History Confirmed 04/26/22] metoprolol succinate 50 mg tablet,extended release 24 hr 50 mg PO BID 04/26/22 [History Confirmed 04/26/22] spironolactone 50 mg tablet 50 mg PO BID 04/26/22 [History Confirmed 04/26/22] Visit Medications (administered) Generic Name Dose Route Start Last Admin Trade Name Freq PRN Reason Stop Dose Admin Acetaminophen 650 mg 04/26/22 12:04 04/26/22 20:39 Acetaminophen 325 Mg Tablet PO 650 mg Q6HR PRN Administration Fever/Mild Pain (1-3) Heparin Sodium (Porcine) 5,000 unit 04/26/22 21:00 04/28/22 08:18 Heparin 5,000 Unit/Ml Vial SUBCUT 5,000 unit BID ANYA Administration Heparin Sodium (Porcine) 50 unit 04/27/22 21:00 04/28/22 08:18 Heparin Flush (Cl/Picc/Mid-Line) 50 Unit/5 Ml Syringe IV 50 unit BID ANYA Administration Melatonin 6 mg 04/27/22 21:00 04/27/22 21:18 Melatonin 3 Mg Tablet PO 6 mg BEDTIME ANYA Administration Metoprolol Succinate 50 mg 04/26/22 21:00 04/28/22 08:18 Metoprolol Er 50 Mg Tablet PO 50 mg BID ANYA Administration Objective Labs Result Diagrams: 04/28/22 04:55 04/28/22 08:00 Labs: Laboratory Results - last 24 hr 04/27/22 04/27/22 04/27/22 04:00 10:11 10:11 WBC RBC Hgb Hct MCV MCH MCHC RDW Plt Count Neut % (Auto) Lymph % (Auto) [place] % (Auto) Eos % (Auto) Baso % (Auto) Neut # (Auto) Lymph # (Auto) [place] # (Auto) Eos # (Auto) Baso # (Auto) Sodium 137 Potassium 6.1 H Chloride 110 H Carbon Dioxide 23 BUN 29 H Creatinine 1.34 H Estimated GFR 56 L BUN/Creatinine Ratio 21.6 Glucose 122 H Calcium 8.5 Magnesium 1.3 L Total Bilirubin 0.3 AST 24 ALT 15 Alkaline Phosphatase 53 Total Protein 6.3 Albumin 3.7 Globulin 2.6 Albumin/Globulin Ratio 1.4 Triglycerides Cholesterol LDL Cholesterol, Calc HDL Cholesterol Vitamin B12 346 04/27/22 04/27/22 04/27/22 14:03 18:25 21:40 WBC RBC Hgb Hct MCV MCH MCHC RDW Plt Count Neut % (Auto) Lymph % (Auto) [place] % (Auto) Eos % (Auto) Baso % (Auto) Neut # (Auto) Lymph # (Auto) [place] # (Auto) Eos # (Auto) Baso # (Auto) Sodium 139 137 137 Potassium 6.3 H* 6.3 H* 6.1 H Chloride 110 H 110 H 107 Carbon Dioxide 23 22 21 L BUN 26 H 26 H 28 H Creatinine 1.20 1.33 H 1.22 Estimated GFR > 60 56 L > 60 BUN/Creatinine Ratio 21.7 19.5 23.0 H Glucose 121 H 100 103 Calcium 8.8 8.7 8.4 Magnesium Total Bilirubin 0.2 AST 25 ALT 15 Alkaline Phosphatase 48 Total Protein 6.2 L Albumin 3.6 Globulin 2.6 Albumin/Globulin Ratio 1.4 Triglycerides Cholesterol LDL Cholesterol, Calc HDL Cholesterol Vitamin B12 04/27/22 04/28/22 04/28/22 21:40 04:55 04:55 WBC 7.8 RBC 2.82 L Hgb 9.9 L Hct 29.5 L MCV 104.8 H MCH 35.0 H MCHC 33.4 RDW 15.0 H Plt Count 181 Neut % (Auto) 62.7 Lymph % (Auto) 21.8 L [place] % (Auto) 11.2 Eos % (Auto) 3.6 Baso % (Auto) 0.7 Neut # (Auto) 4900 Lymph # (Auto) 1700 [place] # (Auto) 900 Eos # (Auto) 300 Baso # (Auto) 100 Sodium 136 L Potassium 5.6 H Chloride 107 Carbon Dioxide 22 BUN 23 H Creatinine 1.04 Estimated GFR > 60 BUN/Creatinine Ratio 22.1 H Glucose 95 Calcium 8.5 Magnesium Total Bilirubin AST ALT Alkaline Phosphatase Total Protein Albumin Globulin Albumin/Globulin Ratio Triglycerides 98 Cholesterol 102 L LDL Cholesterol, Calc 30 HDL Cholesterol 52 Vitamin B12 04/28/22 08:03 WBC RBC Hgb Hct MCV MCH MCHC RDW Plt Count Neut % (Auto) Lymph % (Auto) [place] % (Auto) Eos % (Auto) Baso % (Auto) Neut # (Auto) Lymph # (Auto) [place] # (Auto) Eos # (Auto) Baso # (Auto) Sodium Potassium Chloride Carbon Dioxide BUN Creatinine Estimated GFR BUN/Creatinine Ratio Glucose Calcium Magnesium 1.3 L Total Bilirubin AST ALT Alkaline Phosphatase Total Protein Albumin Globulin Albumin/Globulin Ratio Triglycerides Cholesterol LDL Cholesterol, Calc HDL Cholesterol Vitamin B12 Exam Vital Signs (past 8 hours): - 04/28/22 04:00 04/28/22 08:18 04/28/22 08:00 Temperature 97.9 F 99.3 F Pulse Rate 76 79 78 Respiratory Rate 17 21 Blood Pressure 117/63 123/60 123/60 Pulse Oximetry 95 95 Oxygen Flow Rate 0 Oxygen Delivery Method Room Air Oxygen Flow Rate 0 Narrative Exam Narrative: patient seen over audio visual systemt. Pt. sitting up in bed, in NAD, alert and answering questions appropriately Assessment & Plan Assessment & Plan narrative: Assessment Hyperkalemia EUGENIE ? Discussion:? 71 yo man with PMH Of HTN, ANASTASIA, HL,and gout admitted with hyperkalemia thought to be secondary to EUGENIE fron dehydration exacerbated by spironolactone and lisinopril.? Though Cr continues to improve, urine output is good, and K did initially come down from 9 to 5.6, K has been trending up again and requiring keyexalate and insulin. One possibility is residual effects of lisinopril and spironolactone. Another possibility is hypoaldosteronism. Plan - since patientis 1.3 L net neg in last 24 hours will bolus NS 1 L now and restart NS at 150 cc/hr - since K went from 5.6 to 5.9 will give another dose of kayexalate - recheck K at noon and if K > 6 will give insuline and dexrose - check serum cortisol level, serum adosterone level, and plasma renin acitivity - consult nephrology if possible - consider holding heparin and or metoprolol if hyperkalemia still persists as these meds have been reported to contribute to hyperkalemia. PPx: continue SQ heparin for now Time Spent With Patient Critical Care time: I spent a total of [45] minutes of critical care time on this patient's care today; this time is exclusive of procedural time.
[2022-04-28 09:16] LABS: Potassium 5.9 mmol/L (3.4-5.1)
--- NOTE | 2022-04-28 09:25 | CM.DPC ---
DCP Cont: Per RN, waiting for MD to round and labs results from draw this morning to determine if pt medically stable to d/c yet today. SW met bedside with pt and explained role and he confirms he lives in [place] with his spouse and denies any hx of HH or SNF. 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 Pt states he is hopeful for d/c home today and that spouse plans to be bedside later this morning and can transport at d/c although she is giving her son a ride to the train station around 1500 today. Pt states he feels steady with ambulation and does not anticipate any needs at d/c. Plan: SW to follow closely to confirm if pt stable for d/c home with spouse assist when medically stable and any further identified needs. ROXIE Conklin
[2022-04-28] MEDS: SODIUM POLYSTYRENE SULFON/SORB 15 GM/60 ML CUP 30 GM PO (10:41)
[2022-04-28] MEDS: SODIUM CHLORIDE 0.9% 1,000 ML 1000 ML IV (10:57)
[2022-04-28] MEDS: SODIUM CHLORIDE 0.9% 1,000 ML 150 ML IV (11:30)
[2022-04-28 13:01] LABS: BUN Creatinine Ratio 23.8 (6-22); Blood Urea Nitrogen 19 mg/dL (9-20); Calcium 7.9 mg/dL (8.4-10.2); Carbon Dioxide 21 mmol/L (22-32); Chloride 110 mmol/L (98-107); Estimated Glomerular Filt Rate > 60 mL/min (>60); Glucose 121 mg/dL (80-110); HEMOLYSIS < 15 (0-50); Potassium 4.7 mmol/L (3.4-5.1); Sodium 138 mmol/L (137-145)
--- NOTE | 2022-04-28 14:54 | P.PN_ITS ---
Subjective Subjective Date Patient Seen: 04/28/22 Interval history: The pt reports that he feels well this morning. He denies any specific concerns. He was able to sleep well last night, which he is appreciative of. Exam Vital Signs (past 8 hours): - 04/28/22 09:00 04/28/22 08:18 04/28/22 08:00 Temperature 99.3 F Pulse Rate 79 78 Respiratory Rate 21 Blood Pressure 123/60 123/60 Pulse Oximetry 95 Oxygen Delivery Method Room Air Oxygen Flow Rate 0 04/28/22 09:31 04/28/22 08:48 04/28/22 11:48 Temperature 98.1 F Pulse Rate 92 H 94 H 91 H Respiratory Rate 21 21 Blood Pressure 163/71 H 115/73 135/67 Pulse Oximetry 97 93 Oxygen Delivery Method Oxygen Flow Rate 0 04/28/22 13:00 Temperature Pulse Rate Respiratory Rate Blood Pressure Pulse Oximetry Oxygen Delivery Method Room Air Oxygen Flow Rate Oxygen Delivery Method Room Air Oxygen Flow Rate 0 Narrative Exam Narrative: Gen:? NAD, sitting comfortably in bed, appears well, pleasantly conversant CV:? RRR, no murmurs Resp:? clear to auscultation bilaterally Abd:? soft, nontender, nondistended Ext:? no edema Objective Labs Result Diagrams: 04/28/22 04:55 04/28/22 12:39 Labs: Laboratory Results - last 24 hr 04/27/22 04/27/22 04/27/22 18:25 21:40 21:40 WBC RBC Hgb Hct MCV MCH MCHC RDW Plt Count Neut % (Auto) Lymph % (Auto) [place] % (Auto) Eos % (Auto) Baso % (Auto) Neut # (Auto) Lymph # (Auto) [place] # (Auto) Eos # (Auto) Baso # (Auto) Sodium 137 137 Potassium 6.3 H* 6.1 H Chloride 110 H 107 Carbon Dioxide 22 21 L BUN 26 H 28 H Creatinine 1.33 H 1.22 Estimated GFR 56 L > 60 BUN/Creatinine Ratio 19.5 23.0 H Glucose 100 103 Calcium 8.7 8.4 Magnesium Total Bilirubin 0.2 AST 25 ALT 15 Alkaline Phosphatase 48 Total Protein 6.2 L Albumin 3.6 Globulin 2.6 Albumin/Globulin Ratio 1.4 Triglycerides 98 Cholesterol 102 L LDL Cholesterol, Calc 30 HDL Cholesterol 52 04/28/22 04/28/22 04/28/22 04:55 04:55 08:00 WBC 7.8 RBC 2.82 L Hgb 9.9 L Hct 29.5 L MCV 104.8 H MCH 35.0 H MCHC 33.4 RDW 15.0 H Plt Count 181 Neut % (Auto) 62.7 Lymph % (Auto) 21.8 L [place] % (Auto) 11.2 Eos % (Auto) 3.6 Baso % (Auto) 0.7 Neut # (Auto) 4900 Lymph # (Auto) 1700 [place] # (Auto) 900 Eos # (Auto) 300 Baso # (Auto) 100 Sodium 136 L 136 L Potassium 5.6 H 5.9 H Chloride 107 108 H Carbon Dioxide 22 23 BUN 23 H 22 H Creatinine 1.04 1.02 Estimated GFR > 60 > 60 BUN/Creatinine Ratio 22.1 H 21.6 Glucose 95 98 Calcium 8.5 8.8 Magnesium Total Bilirubin AST ALT Alkaline Phosphatase Total Protein Albumin Globulin Albumin/Globulin Ratio Triglycerides Cholesterol LDL Cholesterol, Calc HDL Cholesterol 04/28/22 04/28/22 08:03 12:39 WBC RBC Hgb Hct MCV MCH MCHC RDW Plt Count Neut % (Auto) Lymph % (Auto) [place] % (Auto) Eos % (Auto) Baso % (Auto) Neut # (Auto) Lymph # (Auto) [place] # (Auto) Eos # (Auto) Baso # (Auto) Sodium 138 Potassium 4.7 D Chloride 110 H Carbon Dioxide 21 L BUN 19 Creatinine 0.80 Estimated GFR > 60 BUN/Creatinine Ratio 23.8 H Glucose 121 H Calcium 7.9 L Magnesium 1.3 L Total Bilirubin AST ALT Alkaline Phosphatase Total Protein Albumin Globulin Albumin/Globulin Ratio Triglycerides Cholesterol LDL Cholesterol, Calc HDL Cholesterol [facility] Medical History Gout Hypertension Insomnia Knee pain Obstructive sleep apnea Family History Father Cancer Mother Cancer Social History household members: spouse Smoking Status: Never smoker alcohol intake: current Assessment & Plan Assessment & Plan narrative: Ward Francis is a 71-year-old male with past medical history of hypertension, hyperlipidemia, ANASTASIA, and gout who presented to the emergency department with weakness, diaphoresis and twitching, found to have severe hyperkalemia and EUGENIE. # Severe acute hyperkalemia:? Likely secondary to dehydration with lisinopril and spirinolactone, however due to significant delay in improvement question alternative etiology.? Highest K of 9.0, coming down after plateau for a day around 5.9-6.1. Considered Nephrology referral, however will hold on this as potassium is now responding. Question delayed response after discontinuation of medications. - Continue q4h BMP checks - Received additional 1L bolus this morning, 150cc/hr now with good response - D/C'ed home Lisinopril and Spirinolactone - Telemetry # EUGENIE:? Appears to be prerenal, improving with hydration.? Resolved. - Continue IVF as above # Sinus tachycardia in setting of HFpEF:? Resolved.? Echo showed EF 60-65% with stage I diastolic dysfunction.? Likely due to several doses of nebulized albuterol. # Mild hyponatremia:? Likely hypotonic secondary to dehydration.? Resolved. # Macrocytic anemia:? H/H stable.? B12 and folate levels normal.? No evidence active bleed. - Continue to trend, not meeting transfusion criteria # Acute hypoxic respiratory failure:? Initially requiring 6L of oxygen, stable on room air now.? CXR yesterday normal.? Lungs clear currently.? - Will continue to monitor # Hypertension, chronic:? BP in good range, elevation only when anxious - Continue home Metoprolol # Gout, chronic:? Asymptomatic currently - Hold home allopurinol due to EUGENIE # Hyperlipidemia, chronic - Hold home statin due to elevated CK #? Left elbow pain:? From ground level fall. No fracture on xray - Icing PRN #? Anxiety:? Pt with significant anxiety and resultant difficulty with sleep due to diagnoses - Ativan PRN - Melatonin PRN for sleep Dispo:? Pending continued stabilization of potassium.? Should be able to return home at discharge. PT consulted today only due to mild weakness with ambulation. Code:? Full Diet:? Low potassium DVT ppx:? Heparin Time Spent With Patient Critical Care time: I spent a total of [] minutes of critical care time on this patient's care today; this time is exclusive of procedural time.
[2022-04-28 16:34] LABS: BUN Creatinine Ratio 21.7 (6-22); Blood Urea Nitrogen 18 mg/dL (9-20); Carbon Dioxide 20 mmol/L (22-32); Chloride 113 mmol/L (98-107); Estimated Glomerular Filt Rate > 60 mL/min (>60); Glucose 99 mg/dL (80-110); HEMOLYSIS < 15 (0-50); Potassium 4.5 mmol/L (3.4-5.1); Sodium 137 mmol/L (137-145)
--- NOTE | 2022-04-28 20:22 | PM.ICURNDS ---
- :: This patient was seen via real time interactive two-way audiovisual telecommunication. Note: Labs reviewed. K remains wl on two BMP. Currently remains stable without any signifcant changes in his course. VSS. from my perspective can de downgraded form ICU status.
[2022-04-28] MEDS: MELATONIN 3 MG TABLET 6 MG PO (20:57)
[2022-04-29] VITALS: BP 150/69; PULSE 78; PULSE 84; RESP 19; TEMP 37.2; O2SAT 96
[2022-04-29 04:00] VITALS: BP 157/73; PULSE 89; RESP 17; TEMP 36.6; O2SAT 95
[2022-04-29 05:23] LABS: Add Manual Diff / Slide Review NO; Basophils Absolute Auto 100 /uL (0-100); Basophils Percent Auto 0.9 % (0-2); Eosinophils Absolute Auto 400 /uL (0-450); Eosinophils Percent Auto 4.7 % (2-4); Hematocrit 29.6 % (41-53); Hemoglobin 10.1 g/dL (13.5-17.5); Lymphocytes Absolute Auto 1600 /uL (1100-4500); Lymphocytes Percent Auto 20.5 % (25-40); Mean Corpuscular HGB Conc 34.3 % (30-36); Mean Corpuscular Hemoglobin 35.3 PG (26-34); Mean Corpuscular Volume 103.1 fL (80-100); Monocytes Absolute Auto 800 /uL (0-900); Monocytes Percent Auto 10.6 % (3-14); Neutrophils Absolute Auto 5000 /uL (1500-7000); Neutrophils Percent Auto 63.3 % (50-75); Platelet Count 183 X10^3/uL (150-400); Red Blood Cell Count 2.87 X10^6/uL (4.5-5.9); Red Cell Distribution Width 14.6 % (11.6-14.8); White Blood Cell Count 7.9 X10^3/uL (4.5-11.0)
[2022-04-29 05:28] LABS: BUN Creatinine Ratio 20.6 (6-22); Blood Urea Nitrogen 20 mg/dL (9-20); Calcium 8.5 mg/dL (8.4-10.2); Carbon Dioxide 25 mmol/L (22-32); Chloride 108 mmol/L (98-107); Estimated Glomerular Filt Rate > 60 mL/min (>60); Glucose 98 mg/dL (80-110); HEMOLYSIS < 15 (0-50); Potassium 4.8 mmol/L (3.4-5.1); Sodium 136 mmol/L (137-145)
--- NOTE | 2022-04-29 05:43 | PC.NURSE ---
End of shift note. Care of patient from . Patient AAOX4, uses call light. No complaints of pain. No stools this shift. Using urinal at bedside. Has been NSR 76 with no ectype. This am potassium level is 4.5 mmol/L. Patient is hoping to discharge home today.
[2022-04-29 08:00] VITALS: BP 152/72; PULSE 101; RESP 28; O2SAT 98
[2022-04-29] MEDS: METOPROLOL ER 50 MG TABLET PO (08:53)
[2022-04-29] MEDS: HEPARIN 5,000 UNIT/ML VIAL 5000 UNIT SUBCUT (08:57)
--- NOTE | 2022-04-29 09:16 | P.DS_ITS ---
History of Present Illness History of Present Illness Date Patient Seen: 04/29/22 Time Patient Seen: 08:50 Chief complaint: limbs not working ,trouble breathing Narrative: Feeling fine this morning, K remains stable, will come in to clinic in 2 days for recheck. Will hold lisinopril hctz allopurinol and spironolactone for now in case they are contributing. BP ok on nonrenal meds. advised assiduous hydration. 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 Routine Comment: Consulting Provider: [employer] Reason for consultation: [employer] services 04/28/22 11:25 Consult to Physical Therapy Evaluate & Treat Comment: Physician Instructions: Evaluate and Treat Discharge provider: Eleazar Hewitt MD Summary Hospital Course Discharge Diagnosis: #Severe acute hyperkalemia #acute renal failure #Sinus tachycardia #chronic HFpEF #Mild hyponatremia #Macrocytic anemia #Acute hypoxic respiratory failure #Hypertension, chronic #Gout, chronic #Hyperlipidemia, chronic #Left elbow pain s/p ground level fall #Anxiety Hospital Course: Ward Francis is a 71-year-old male with past medical history of hypertension, hyperlipidemia, ANASTASIA, and gout who presented to the emergency department with weakness, diaphoresis and twitching, found to have severe hyperkalemia to 9.0 and EUGENIE. He was treated with fluids D50 kayexalate calcium gluconate etc and by DoD his K was in stable range of 4 for 24 hours and he felt fine. Not clear what etiology of hyperkalemia beyond dehydration and pharmacogenic so stopped some meds that might have been contributing. Will have close f/u outpt. Status at Discharge Cognitive/behavioral status at discharge: at baseline, oriented Functional status at discharge: independent ambulation Overall status at discharge: patient is back to baseline Exam Vital Signs (past 8 hours): - 04/29/22 04:00 Temperature 97.9 F Pulse Rate 89 Respiratory Rate 17 Blood Pressure 157/73 H Pulse Oximetry 95 Oxygen Delivery Method Room Air Oxygen Flow Rate 0 Const General: cooperative, healthy appearing, comfortable and well developed [facility] Head: normal to inspection and normocephalic Resp Auscultation: clear to auscultation bilaterally Cardio Rate: regular rate Rhythm: regular rhythm GI Palpation: soft Auscultation: normal bowel sounds Skin General: no rashes or lesions noted Neuro General: patient alert, patient awake, patient oriented x3, moves all extremities, CN's II-XI intact bilaterally and deep tendon reflexes 2+ bilater ally Extrem General: normal to inspection, full ROM and no pedal edema Psych Appearance: grossly normal Mental Status: mental status grossly normal Speech and Movement: speech and movement normal Objective Labs Result Diagrams: 04/29/22 05:05 04/29/22 05:05 Labs: Laboratory Results - last 24 hr 04/28/22 04/28/22 04/28/22 08:00 08:03 12:39 WBC RBC Hgb Hct MCV MCH MCHC RDW Plt Count Neut % (Auto) Lymph % (Auto) [place] % (Auto) Eos % (Auto) Baso % (Auto) Neut # (Auto) Lymph # (Auto) [place] # (Auto) Eos # (Auto) Baso # (Auto) Sodium 136 L Cancelled 138 Potassium 5.9 H Cancelled 4.7 D Chloride 108 H Cancelled 110 H Carbon Dioxide 23 Cancelled 21 L BUN 22 H Cancelled 19 Creatinine 1.02 Cancelled 0.80 Estimated GFR > 60 Cancelled > 60 BUN/Creatinine Ratio 21.6 Cancelled 23.8 H Glucose 98 Cancelled 121 H Calcium 8.8 Cancelled 7.9 L 04/28/22 04/29/22 04/29/22 16:18 05:05 05:05 WBC 7.9 RBC 2.87 L Hgb 10.1 L Hct 29.6 L MCV 103.1 H MCH 35.3 H MCHC 34.3 RDW 14.6 Plt Count 183 Neut % (Auto) 63.3 Lymph % (Auto) 20.5 L [place] % (Auto) 10.6 Eos % (Auto) 4.7 H Baso % (Auto) 0.9 Neut # (Auto) 5000 Lymph # (Auto) 1600 [place] # (Auto) 800 Eos # (Auto) 400 Baso # (Auto) 100 Sodium 137 136 L Potassium 4.5 4.8 Chloride 113 H 108 H Carbon Dioxide 20 L 25 BUN 18 20 Creatinine 0.83 0.97 Estimated GFR > 60 > 60 BUN/Creatinine Ratio 21.7 20.6 Glucose 99 98 Calcium 7.0 L 8.5 PFSH Medical History Gout Hypertension Insomnia Knee pain Obstructive sleep apnea Family History Father Cancer Mother Cancer Social History household members: spouse Smoking Status: Never smoker alcohol intake: current Discharge Assessment & Plan Assessment and Plan Assessment: #Severe acute hyperkalemia:? Likely secondary to dehydration along with lisinopril and spirinolactone, however due to significant delay in improvement question alternative etiology.? Highest K of 9.0, coming down after plateau for a day around 5.9-6.1.?Question delayed response after discontinuation of medications. - D/C'ed home Lisinopril and Spirinolactone f/u for outpt BMP in 2 days #acute renal failure:? Appears to be prerenal, improving with hydration.? Resolved. - Cassiduous hydration advised #Sinus tachycardia in setting of #mild HFpEF:? Resolved.? Echo showed EF 60-65% with stage I diastolic dysfunction.? Likely due to several doses of nebulized albuterol. #Mild hyponatremia:? Likely hypotonic secondary to dehydration.? Resolved. #Macrocytic anemia:? H/H stable.? B12 and folate levels normal.? No evidence active bleed. - Stable, not meeting transfusion criteria #Acute hypoxic respiratory failure:? Initially requiring 6L of oxygen, stable on room air now.? CXR yesterday normal.? Lungs clear currently.? - Will continue to monitor #Hypertension, chronic:? stable BP in good range, elevation only when anxious - Continue home non-renal meds #Gout, chronic:? Asymptomatic currently - Hold home allopurinol due to EUGENIE - f/u as outpt #Hyperlipidemia, chronic - Held initially, ok to resume on d/c #Left elbow pain:? From ground level fall.? No fracture on xray - Icing PRN #Anxiety:? stable - Ativan PRN - Melatonin PRN for sleep Discharge Plan Discharge Plan Patient Disposition: Home Discharge orders & Medications Prescriptions: Continued atorvastatin 20 mg tablet 20 mg PO DAILY Label Comments: Take 1 tablet by mouth once a day for cholesterol control. metoprolol succinate 50 mg tablet extended release 24 hr 50 mg PO BID Label Comments: 1 tablet by mouth twice a day amlodipine 10 mg tablet 10 mg PO DAILY Discontinued lisinopril-hydrochlorothiazide 20-12.5 mg tablet 1 tab PO BID spironolactone 50 mg Tablet 50 mg PO BID allopurinol 300 mg tablet 300 mg PO BID Medication counseling provided by Pharmacist: Yes Follow up/Referrals: Eleazar Hewitt MD [Primary Care Provider] - (*Appt. on May at 9:00am with . [phone]. ) Visit Report/Discharge Packet Instructions: DI for Hyperkalemia Discharge Data Primary Care Provider: Eleazar Hewitt
--- NOTE | 2022-04-29 09:40 | PT.IIE ---
Current Diagnoses Hyperkalemia (04/26/22) Medical History (Last Reviewed 04/26/22 @ 19:20 by Lg Salguero DO) Gout Hypertension Insomnia Knee pain Obstructive sleep apnea Physical Therapy Inpatient Evaluation/Re-Eval M1 PT/OT-IP Prior Functional Status Start: 04/29/22 08:28 Freq: NEEDED Status: Active Protocol: Document 04/29/22 09:40 AW (Rec: 04/29/22 10:32 AW [id number]) Medical Review Prior Functional Status Medical History Reviewed Yes Communication Pt is an effective verbal communicator. Mobility and Gait Typically independent without assistive device. Pt has used a cane for the past week or two prior to hospital admission due to increasing weakness. Activities of Daily Living and IADL's Independent at baseline. Pt now has medial elbow pain and swelling that is limiting his elbow flexion and complicating ADL's. 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 Social History Household Members spouse Living Arrangements House Number of Floors (Floors) Two Floors Number of Stairs To Enter/Railing? 1 RITIKA no rail. Pt tends to stay on the main level. 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 M2 PT-IP Current Condition Start: 04/29/22 08:28 Freq: NEEDED Status: Active Protocol: Document 04/29/22 09:40 AW (Rec: 04/29/22 10:32 AW [id number]) Physical Therapy Current Condition Current Condition Evaluation Date 04/29/22 Treatment Diagnosis weakness, EUGENIE, hyperkalemia Onset Date 04/26/22 M3 PT-IP Subjective Start: 04/29/22 08:28 Freq: NEEDED Status: Active Protocol: Document 04/29/22 09:40 AW (Rec: 04/29/22 10:32 AW [id number]) Subjective Physical Therapy Visit Type Type Initial Evaluation Visit Start Time 09:23 Visit Stop Time 09:40 Total Visit Minutes 17 Physical Therapy Visit Comments Patient Comments I feel pretty weak and it doesn't help that I haven't been out of bed much this week . Patient Goals Returning home today. M4 PT-IP Mobility and Gait Start: 07/25/22 08:28 Freq: NEEDED Status: Active Protocol: Document 04/29/22 09:40 AW (Rec: 04/29/22 10:32 AW [id number]) PT-Bed Mobility Assessment Supine to Sit Supine to Sit Independent Scooting Scooting to Edge of Bed Independent PT-Transfer Assessment Sit to and From Stand Sit to and from Stand Independent Equipment Transfer Assistive Device None,Gait Belt Orthotic/Prosthetic Devices or Brace: No Transfers Transfer Destination Chair Transfer Technique ambulated without AD Transfer Ability Level of Assist Independent Comments Mobility Comments Pt was lying in the bed as PT arrived. BP 155/77 HR 98. He sat up EOB and reported fleeting lightheadedness. Educated pt to take his time with transitions. He stood and waited a minute for lightheadedness to clear before walking away from the bed. He ambulated in the halls without AD and completed stair assessment before returning to the room and transferring to the chair SBA. Pt was left with call light and all needs in reach. Gait Assessment Gait Gait Assistance Required: Standby Assistance Distance (Feet) 250 Assistive Devices Assistive Device None,Gait Belt Orthotic/Prosthetic Devices or Brace: No Gait Deviations General Gait Pattern Antalgic,Decreased Stride Length,Decreased Feet Clearance Factors Limiting Gait Function Factors Limiting Gait Function Decreased Activity Tolerance, Decreased Strength Comments Gait Comments Gait was notable for high steppage with RLE to clear the foot due to reduced dorsiflexion ROM and strength which pt states is chronic. Pt did reach for the wall on two occasions initially but steadiness improved with distance. Stair Climbing Assessment Evaluation Level of Assist On Stairs Standby Assistance Devices Stair Climbing Assistive Devices Left Railing,Right Railing Technique/Endurance Stair Climbing Direction Ascend and Descend Stair Climbing Technique Step to Step Number of Steps Climbed 6 Query Text: Stair Climbing Set # Repetitions (reps) 1 Comments Stair Climbing Comments Pt descended and ascended ICU stairs with RLE leading down and LLE leading up. PT-Balance Assessment Sitting Balance and Reactions Static Sitting Balance Ability Normal Dynamic Sitting Balance Ability Normal Standing Balance and Reactions Static Standing Balance Ability Good Dynamic Standing Balance Ability Fair Device Used none Functional Assessments Functional Tests Dynamic Gait Index /12 on 4-item DGI Other Functional Tests Performed Single points deducted for gait with horizontal head turns and gait with vertical head turns. M5 PT-IP Objective Assessments Start: 04/29/22 08:28 Freq: NEEDED Status: Active Protocol: Document 04/29/22 09:40 AW (Rec: 04/29/22 10:32 AW [id number]) Orientation Orientation/Cognition Level of Alertness Alert Orientation Name,Day of Week,Place, Situation Language Function Ability No Deficits Noted Safety Awareness Understands Safety Issues Memory Description No Deficits Noted Gross Range of Motion Upper Extremity ROM Assessment Left Impaired Impairments LUE elbow flexion impaired secondary to pain and swelling in the medial elbow. Wrist flexion was not affected. Lower Extremity ROM Assessment Right Impaired Impairments Pt dorsiflexes only to neutral . 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 reduced compared with RUE secondary to elbow/ flexor pain Lower Extremity Strength Assessment Bilaterally Impaired Hip 4/5 Knee 4+/5 Ankle L 4+/5; R 4-/5 Coordination Assessment Gross Coordination Gross Coordination WNL Assessment Finger to Nose Test Normal Performance Sensation Assessment Sensation Gross Sensation WNL Muscle Tone Muscle Tone WNL Yes M6 PT-IP Treatment Start: 04/29/22 08:28 Freq: NEEDED Status: Active Protocol: Document 04/29/22 09:40 AW (Rec: 04/29/22 10:32 AW [id number]) Physical Therapy Treatment Education Education Provided Safety M7 PT-IP Assessment and Plan Start: 04/29/22 08:28 Freq: NEEDED Status: Active Protocol: Document 04/29/22 09:40 AW (Rec: 04/29/22 10:32 AW [id number]) PT Summary Assessment and Plan Potential Rehabilitation Potential Good Status of Condition at Evaluation Stable Summary Impairments Pain,ROM,Strength,Balance,Gait ,Activity Tolerance Assessment Summary Ward is a 71 yo man admitted with severe hyperkalemia and pre-renal kidney failure, all resolved after 4 days in hospital. Pt is independent in all regards at baseline. He presents with decreased ROM and strength in his right ankle which pt states is chronic. Proximal weakness is likely a change from baseline and does affect gait. Pt has left medial elbow pain which is limiting his elbow flexion and function. Pt needed no more than SBA for all mobility at this assessment and is safe to discharge home with assist from his spouse. He would benefit from outpatient PT to improve strength and balance. Goals Bed Mobility Goal Independent Transfer Goal Independent Gait Goal Independent Gait Distance 500 Other Goals - up/down one step IND Frequency of Treatment Frequency Of Treatment Once a Day Treatment Plan Physical Therapy Treatment Plan Gait Training,Therapeutic Exercise,Balance Retraining, Discharge Planning,Hot or Cold Pack,Neuromuscular Re-ed Precautions Other Precautions falls history Recommendations To Nursing Amount of Assist Needed Standby Assistance Discharge Recommendations PT Discharge Recommendations Home with Assistance, Outpatient PT Transportation Needs at Discharge Private Vehicle
--- NOTE | 2022-04-29 13:39 | CM.DPC ---
DCP Discharge Home Per MD, pt's labs have been more stable and after consultation with Carpentry Instructor determined pt can d/c home with outpt follow up. Per PT, recommending home with spouse and outpt PT. Plan: Patient to d/c home today via spouse POV and outpt f/u and no further SW needs at this time. Lydia Eduardo MSW
== END 2022-04-29 12:19 | disposition home or self-care (01) | DRG 640 ==
LOC: ED 07:17 → AC 16:18 → ICU 17:49
PROVIDERS: Family Medicine; Internal Medicine; Nurse Practitioner Family; Admitting Provider Student in an Organized Health Care Education/Training Program; Emergency Provider Family Medicine Addiction Medicine; PCP Family Medicine; Referring Provider Family Medicine Addiction Medicine; Visit Provider Family Medicine
DX: E87.5 Hyperkalemia (principal); J96.01 Acute respiratory failure with hypoxia; N17.9 Acute kidney failure, unspecified; E86.0 Dehydration; E87.1 Hypo-osmolality and hyponatremia; D53.9 Nutritional anemia, unspecified; M1A.9XX0 Chronic gout, unspecified, without tophus (tophi); E78.5 Hyperlipidemia, unspecified; G47.33 Obstructive sleep apnea (adult) (pediatric); I10 Essential (primary) hypertension; M25.522 Pain in left elbow; F41.9 Anxiety disorder, unspecified; Z20.822 Contact with and (suspected) exposure to COVID-19
CPT/HCPCS: 36415; 36592; 70450; 71045; 73080; 80048; 80053; 80061; 81001; 82040; 82550; 82607; 82746; 82805; 82962; 83605; 83735; 83880; 84132; 84484; 85025; 87635; 87797; 93005; 93010; 93306; 96361; 96365; 96366; 96372; 96375; 97162; 99233; 99285; 99291; 99292; C9803; J0610; J1642; J1644; J1650; J1940; J2405; J7613

== ENCOUNTER 2022-08-20 18:47 | Observation (INO) | payer MEDICARE, SELFPAY ==
[2022-04-26 21:25] VITALS: BMI 28.0
[2022-08-20 18:54] VITALS: BP 174/94; PULSE 121; RESP 15; TEMP 36.7; O2SAT 96; BMI 27.3
--- NOTE | 2022-08-20 18:58 | DI.RAD.S_ITS ---
PROCEDURE: XR CHEST 1V INDICATIONS: chest pain TECHNIQUE: One view of the chest was acquired. COMPARISON: [facility], CR, XR CHEST FOR PICC 1V, 04/27/2022, 12:25. [facility], CR, XR CHEST 1V, 04/26/2022, 8:49. FINDINGS: Surgical changes and devices: None. Lungs and pleura: Lung volumes are slightly low. No dense consolidation or pleural effusion. Prominence of the right hilar vessels is similar to prior. Mediastinum: Mediastinal contours appear normal. Heart size is normal. Bones and chest wall: No suspicious bony lesions. Overlying soft tissues appear unremarkable. IMPRESSION: Low lung volumes limiting evaluation. No acute radiographic abnormality. Dictated by: Ramakrishna Carter M.D. on 08/20/2022 at 20:14 Approved by: Ramakrishna Carter M.D. on 08/20/2022 at 20:15
[2022-08-20 19:20] LABS: Add Manual Diff / Slide Review NO; Basophils Absolute Auto 100 /uL (0-100); Basophils Percent Auto 1.4 % (0-2); Eosinophils Absolute Auto 300 /uL (0-450); Eosinophils Percent Auto 2.8 % (2-4); Hematocrit 42.7 % (41-53); Hemoglobin 14.6 g/dL (13.5-17.5); Lymphocytes Absolute Auto 2400 /uL (1100-4500); Lymphocytes Percent Auto 22.8 % (25-40); Mean Corpuscular HGB Conc 34.1 % (30-36); Mean Corpuscular Volume 93.8 fL (80-100); Monocytes Absolute Auto 1000 /uL (0-900); Monocytes Percent Auto 9.5 % (3-14); Neutrophils Absolute Auto 6700 /uL (1500-7000); Neutrophils Percent Auto 63.5 % (50-75); Platelet Count 239 X10^3/uL (150-400); Red Blood Cell Count 4.55 X10^6/uL (4.5-5.9); White Blood Cell Count 10.5 X10^3/uL (4.5-11.0)
[2022-08-20 19:31] LABS: Prothrombin Time 11.5 SECONDS (10.1-12.7)
[2022-08-20 19:33] LABS: PTT Partial Thromboplastin Tim 32 SECONDS (26-36)
[2022-08-20 19:39] LABS: Alanine Aminotransferase 31 IU/L (<50); Albumin 4.9 g/dL (3.5-5.0); Albumin Globulin Ratio 1.4 (1.0-2.8); Alkaline Phosphatase 79 U/L (38-126); Aspartate Aminotransferase 32 IU/L (17-59); BUN Creatinine Ratio 24.1 (6-22); Bilirubin Total 0.3 mg/dL (0.2-1.3); Blood Urea Nitrogen 27 mg/dL (9-20); Calcium 9.4 mg/dL (8.4-10.2); Carbon Dioxide 23 mmol/L (22-32); Chloride 104 mmol/L (98-107); Creatine Kinase 261 U/L (55-170); Estimated Glomerular Filt Rate > 60 mL/min (>60); Globulin 3.4 g/dL (1.7-4.1); Glucose 128 mg/dL (80-110); HEMOLYSIS < 15 (0-50); Lipase 60 U/L (23-300); Magnesium 1.9 mg/dL (1.6-2.3); Potassium 3.9 mmol/L (3.4-5.1); Sodium 140 mmol/L (137-145); Total Protein 8.3 g/dL (6.3-8.2)
[2022-08-20 19:51] LABS: Troponin I 0.048 ng/mL (0.01-0.034)
[2022-08-20 19:54] LABS: CKMB % Relative Index 1.7 % (1.5-5.0); Creatine Kinase MB 4.54 ng/mL (<2.37)
--- NOTE | 2022-08-20 20:01 | ED.DIZZY ---
HPI - Dizziness General Chief Complaint: Dizziness Stated Complaint: DIZZY/WEAKNESS IN BOTH LEGS Time Seen by Provider: 08/20/22 19:02 Source: patient Mode of arrival: Ambulatory History of Present Illness HPI Narrative: Mr. Francis is a 71-year-old man with dizziness. Back last summer he was admitted to the hospital ICU for profound hyperkalemia. He says the symptoms he was experiencing at the time are similar in nature so he was concerned about possibility of hyperkalemia again. Medication regimen was changed dramatically back this last summer to try to eliminate any cause for hyperkalemia. Never ended up having any renal dysfunction according to the patient. Recently now he has been having episodes of diarrhea. He has no pain in his abdomen or chest. No shortness of breath. Says he feels a little dizzy and lightheaded when he tries to stand and he particularly notices some proximal muscle weakness in his legs causing him to feel a little bit weak in his legs. He has no other specific symptoms but thought he ought to get this checked because of the severity of what happened last summer. Related Data Home Medications Medication Instructions Recorded Confirmed amlodipine 10 mg tablet 10 mg PO DAILY 04/26/22 04/26/22 atorvastatin 20 mg tablet 20 mg PO DAILY 04/26/22 04/26/22 metoprolol succinate 50 mg 50 mg PO BID 04/26/22 04/26/22 tablet,extended release 24 hr Allergies Allergy/AdvReac Type Severity Reaction Status Date / Time Nzasvhz-CGW-KgM Reductase AdvReac Unknown Muscle Pain Verified 08/20/22 18:54 Inhibitor [Gijsewv-Plf-Gfr Reductase Inhibitor] Review of Systems Review of Systems Narrative: Complete review of systems is negative other than as noted above. Patient History Medical History (Updated 08/20/22 @ 22:18 by Jay Martínez MD) Gout Hypertension Insomnia Knee pain Obstructive sleep apnea Family History Father Cancer Mother Cancer Social History household members: spouse Smoking Status: Never smoker alcohol intake: current Smoking Status: Never smoker alcohol intake frequency: 0-2 drinks per day Alcohol type: hard liquor Substance Use Type: does not use Exam Narrative Exam Narrative: GENERAL: Alert, cooperative and in no distress. HEAD: Atraumatic. Normocephalic. EYES: Sclera are clear without icterus. Extraocular movements are full. ENT: No rhinorrhea NECK: Supple. Full range of motion. CARDIOVASCULAR: Normal rate and rhythm without murmur gallop or rub. RESPIRATORY: Clear to auscultation. Breath sounds equal bilaterally. No wheezes, rales, or rhonchi. GASTROINTESTINAL: Abdomen soft, non-tender, nondistended. EXTREMITIES: No edema, full range of motion. No obvious trauma. BACK: Normal inspection, no CVA tenderness. NEURO: Nonfocal examination, normal speech SKIN: No rash or erythema of visible areas PSYCH: Normally oriented. Normal range of affect. Appropriate behavior Initial Vital Signs Initial Vital Signs: Vital Signs Temperature 98.1 F 08/20/22 18:54 Pulse Rate 121 H 08/20/22 18:54 Respiratory Rate 15 08/20/22 18:54 Blood Pressure 174/94 H 08/20/22 18:54 Pulse Oximetry 96 08/20/22 18:54 Oxygen Delivery Method 08/20/22 18:54 Course Orders Ordered: ED Orders 08/20/22 18:58 XR chest 1V Stat 08/20/22 19:04 Complete Blood Count AUTO DIFF Stat Comprehensive Metabolic Panel Stat D Dimer Stat Lipase Stat Magnesium Stat Partial Thromboplastin Time Stat Prothrombin Time INR Stat Troponin & CK Cardiac Panel Stat 08/20/22 19:11 EKG-12 Lead Stat Vital Signs Vital signs: Vital Signs - 8 hr 08/20/22 18:54 Temperature 98.1 F Pulse Rate 121 H Respiratory Rate 15 Blood Pressure 174/94 H Pulse Oximetry 96 Oxygen Delivery Method Room Air MDM - Dizziness Lab Data Result diagrams: 08/20/22 19:04 08/20/22 19:04 Labs: Lab Results 08/20/22 08/20/22 08/20/22 Range/Units 19:04 19:04 19:04 WBC 10.5 (4.5-11.0) X10^3/uL RBC 4.55 (4.5-5.9) X10^6/uL Hgb 14.6 (13.5-17.5) g/dL Hct 42.7 (41-53) % MCV 93.8 (80-100) fL MCH 32.0 (26-34) PG MCHC 34.1 (30-36) % RDW 14.0 (11.6-14.8) % Plt Count 239 (150-400) X10^3/uL Neut % (Auto) 63.5 (50-75) % Lymph % (Auto) 22.8 L (25-40) % [place] % (Auto) 9.5 (3-14) % Eos % (Auto) 2.8 (2-4) % Baso % (Auto) 1.4 (0-2) % Neut # (Auto) 6700 (4490-3860) /uL Lymph # (Auto) 2400 (4850-2969) /uL [place] # (Auto) 1000 H (0-900) /uL Eos # (Auto) 300 (0-450) /uL Baso # (Auto) 100 (0-100) /uL PT 11.5 (10.1-12.7) SECONDS INR 1.0 (0.9-1.3) APTT 32 (26-36) SECONDS D-Dimer (<500) ng/ml Sodium 140 (137-145) mmol/L Potassium 3.9 (3.4-5.1) mmol/L Chloride 104 (98-107) mmol/L Carbon Dioxide 23 (22-32) mmol/L BUN 27 H (9-20) mg/dL Creatinine 1.12 (0.66-1.25) mg/dL Estimated GFR > 60 (>60) mL/min BUN/Creatinine Ratio 24.1 H (6-22) Glucose 128 H (80-110) mg/dL Calcium 9.4 (8.4-10.2) mg/dL Magnesium 1.9 (1.6-2.3) mg/dL Total Bilirubin 0.3 (0.2-1.3) mg/dL AST 32 (17-59) IU/L ALT 31 (<50) IU/L Alkaline Phosphatase 79 (38-126) U/L Total Creatine Kinase 261 H (55-170) U/L CK-MB (CK-2) 4.54 H (<2.37) ng/mL CK-MB (CK-2) Rel Index 1.7 (1.5-5.0) % Troponin I 0.048 H (0.01-0.034) ng/mL Total Protein 8.3 H (6.3-8.2) g/dL Albumin 4.9 (3.5-5.0) g/dL Globulin 3.4 (1.7-4.1) g/dL Albumin/Globulin Ratio 1.4 (1.0-2.8) Lipase 60 (23-300) U/L 08/20/22 Range/Units 19:04 WBC (4.5-11.0) X10^3/uL RBC (4.5-5.9) X10^6/uL Hgb (13.5-17.5) g/dL Hct (41-53) % MCV (80-100) fL MCH (26-34) PG MCHC (30-36) % RDW (11.6-14.8) % Plt Count (150-400) X10^3/uL Neut % (Auto) (50-75) % Lymph % (Auto) (25-40) % [place] % (Auto) (3-14) % Eos % (Auto) (2-4) % Baso % (Auto) (0-2) % Neut # (Auto) (7516-0544) /uL Lymph # (Auto) (6797-9711) /uL [place] # (Auto) (0-900) /uL Eos # (Auto) (0-450) /uL Baso # (Auto) (0-100) /uL PT (10.1-12.7) SECONDS INR (0.9-1.3) APTT (26-36) SECONDS D-Dimer 368 (<500) ng/ml Sodium (137-145) mmol/L Potassium (3.4-5.1) mmol/L Chloride (98-107) mmol/L Carbon Dioxide (22-32) mmol/L BUN (9-20) mg/dL Creatinine (0.66-1.25) mg/dL Estimated GFR (>60) mL/min BUN/Creatinine Ratio (6-22) Glucose (80-110) mg/dL Calcium (8.4-10.2) mg/dL Magnesium (1.6-2.3) mg/dL Total Bilirubin (0.2-1.3) mg/dL AST (17-59) IU/L ALT (<50) IU/L Alkaline Phosphatase (38-126) U/L Total Creatine Kinase (55-170) U/L CK-MB (CK-2) (<2.37) ng/mL CK-MB (CK-2) Rel Index (1.5-5.0) % Troponin I (0.01-0.034) ng/mL Total Protein (6.3-8.2) g/dL Albumin (3.5-5.0) g/dL Globulin (1.7-4.1) g/dL Albumin/Globulin Ratio (1.0-2.8) Lipase (23-300) U/L Imaging Data Chest x-ray: My Impression: My interpretation of this chest x-ray is normal. No effusion, no widening of the mediastinum. No pneumothorax. Radiologist's Impression: IMPRESSION:? Low lung volumes limiting evaluation.? No acute radiographic abnormality. ? ? Dictated by: Ramakrishna Carter M.D. on 08/20/2022 at 20:14 ? ? Approved by: Ramakrishna Carter M.D. on 08/20/2022 at 20:15 ? ECG Data Interpretation: ECG obtained at 7:11 p.m. shows sinus tachycardia at 112 beats per minute. There are pronounced T-waves in V4 but in no other leads. No acute ST or T-wave changes seen. Nonspecific QRS prolongation. Poor R-wave progression. QTC is 526. MDM Narrative Medical decision making narrative: No acute abnormality seen on the EKG but relatively wide QRS and some poor R-wave progression. Some nonspecific findings. Troponin is minimally elevated but it has never been elevated previously. He does have a resting tachycardia but no chest pain. 4PEPS score is 2 which is low risk. Will check dDimer. D-dimer is negative. Will admit for elevated troponin and tachycardia. Spoke with Dr. Roman Lundy who agrees to admit the patient. Discharge Plan Departure Patient Disposition: Admitted As Inpatient Clinical Impression: Elevated troponin, Dizziness Prescriptions: No Action atorvastatin 20 mg tablet 20 mg PO DAILY Label Comments: Take 1 tablet by mouth once a day for cholesterol control. metoprolol succinate 50 mg tablet extended release 24 hr 50 mg PO BID Label Comments: 1 tablet by mouth twice a day amlodipine 10 mg tablet 10 mg PO DAILY Referrals: Eleazar Hewitt MD [Primary Care Provider] -
--- NOTE | 2022-08-20 20:28 | PC.NURSE ---
pt ambulated to the restroom with a steady gait
[2022-08-20 20:43] LABS: D Dimer 368 ng/ml (<500)
[2022-08-20 21:23] VITALS: BP 151/76; PULSE 104; O2SAT 94
[2022-08-20 21:30] VITALS: BP 146/68; PULSE 98; RESP 23; O2SAT 94
[2022-08-20 22:00] VITALS: BP 145/73; PULSE 86; RESP 28; O2SAT 93
[2022-08-20 22:30] VITALS: BP 130/74; PULSE 83; RESP 23; O2SAT 94
[2022-08-20 23:00] VITALS: BP 158/81; PULSE 73; RESP 18; TEMP 36.6; O2SAT 96
[2022-08-20 23:14] LABS: COVID19 -Nasal RAPID POSITIVE (Negative)
--- NOTE | 2022-08-20 23:24 | PM.HP.1 ---
History of Present Illness History of Present Illness Date Patient Seen: 08/20/22 Time Patient Seen: 23:24 Date of Onset of Symptoms: 08/20/22 Chief complaint: DIZZY/WEAKNESS IN BOTH LEGS Narrative: This is a 71 year old male with a history of hyperkalemia (9.0), hypertension, gout, obstructive sleep apnea, insomnia and acute kidney injury who presents today with similar symptoms to his hyperkalemia presentation back in April. He has been having diarrhea and has felt weak in his legs for 1 day. The hyperkalemia was found to be caused by his lisinopril/spironolactone and dehydration from over exertion doing yard work. Those medicines were stopped. His troponin is elevated at 0.048 with a CK elevation of 261. The potassium is 3.9 and the creatinine is normal. His EKG shows sinus tachycardia with LAD/LVH and no acute ST or T-wave changes. The D-dimer was normal. The chest x-ray is normal. The screening COVID test is positive. The patient has had 2 immunizations but had not gotten any booster because of his most recent illness. His has ?sinus symptoms? and just went to her doctor today. He has had no respiratory symptoms. He is not hypoxic. Patient History Medical History (Updated 08/21/22 @ 00:20 by Argelia Lundy MD) EUGENIE (acute kidney injury) Gout Hyperkalemia Hypertension Insomnia Knee pain Obstructive sleep apnea Surgical History (Updated 08/21/22 @ 00:20 by Argelia Lundy MD) History of appendectomy Family & Social History Family History Father Cancer Mother Cancer Social History: household members spouse Safety & Behavioral: Feels Safe in Current Yes Environment Been Physically Hurt or No Threatened By a Person Tobacco & Substance use: Smoking Status Never smoker alcohol intake current alcohol intake frequency 0-2 drinks per day Substance Use Type does not use Meds Home Medications and Allergies Home Medications Medication Instructions Recorded Confirmed Type amlodipine 10 mg tablet 10 mg PO DAILY 04/26/22 08/20/22 History metoprolol succinate 50 mg 50 mg PO BID 04/26/22 08/20/22 History tablet,extended release 24 hr allopurinol 300 mg tablet 300 mg PO PRN PRN Gout 08/20/22 08/20/22 History atorvastatin 20 mg tablet 20 mg PO DAILY 08/20/22 08/20/22 History Allergies Allergy/AdvReac Type Severity Reaction Status Date / Time Pcbkcnm-TWH-KkI Reductase AdvReac Unknown Muscle Pain Verified 08/20/22 18:54 Inhibitor [Azrvoop-Paw-Iiz Reductase Inhibitor] Review of Systems Review of Systems Narrative: Positive for diarrhea and weakness. Negative for fevers, chills, sweats, coughing, shortness of breath, vomiting, abdominal pain, chest pain, bleeding, dysuria, joint pain, seizures, sore throat. Exam Vital Signs (past 8 hours): - 08/20/22 18:54 08/20/22 21:23 08/20/22 21:23 Temperature 98.1 F Pulse Rate 121 H 104 H Respiratory Rate 15 Blood Pressure 174/94 H 151/76 H Pulse Oximetry 96 94 Oxygen Delivery Method Room Air 08/20/22 21:30 08/20/22 21:30 08/20/22 22:00 Temperature Pulse Rate 98 H Respiratory Rate 23 Blood Pressure 146/68 H 145/73 H Pulse Oximetry 94 Oxygen Delivery Method 08/20/22 22:00 08/20/22 22:30 08/20/22 22:30 Temperature Pulse Rate 86 83 Respiratory Rate 28 H 23 Blood Pressure 130/74 Pulse Oximetry 93 94 Oxygen Delivery Method Oxygen Delivery Method Room Air Narrative Exam Narrative: Alert and oriented x3. No apparent distress. Pupils are equally round and reactive to light and accommodation Extraocular muscles are intact Sclerae are pink and nonicteric Throat looks normal No lymph nodes are felt head, neck, supraclavicular area There is no thyromegaly JVD is less than 6 cm No carotid bruits are heard Heart is regular rate and rhythm without murmur Lungs are clear to auscultation bilaterally Abdomen is soft bowel sounds positive nontender, no organomegaly Extremities have no ankle edema Skin has no rash or jaundice Neurological exam: Cranial nerves 2-12 test intact There is no tremor Motor function is 4/5 throughout No lateralizing deficits Objective Labs Result Diagrams: 08/20/22 19:04 08/20/22 19:04 Labs: Laboratory Results - last 24 hr 08/20/22 08/20/22 08/20/22 19:04 19:04 19:04 WBC 10.5 RBC 4.55 Hgb 14.6 Hct 42.7 MCV 93.8 MCH 32.0 MCHC 34.1 RDW 14.0 Plt Count 239 Neut % (Auto) 63.5 Lymph % (Auto) 22.8 L [place] % (Auto) 9.5 Eos % (Auto) 2.8 Baso % (Auto) 1.4 Neut # (Auto) 6700 Lymph # (Auto) 2400 [place] # (Auto) 1000 H Eos # (Auto) 300 Baso # (Auto) 100 PT 11.5 INR 1.0 APTT 32 D-Dimer Sodium 140 Potassium 3.9 Chloride 104 Carbon Dioxide 23 BUN 27 H Creatinine 1.12 Estimated GFR > 60 BUN/Creatinine Ratio 24.1 H Glucose 128 H Calcium 9.4 Magnesium 1.9 Total Bilirubin 0.3 AST 32 ALT 31 Alkaline Phosphatase 79 Total Creatine Kinase 261 H CK-MB (CK-2) 4.54 H CK-MB (CK-2) Rel Index 1.7 Troponin I 0.048 H Total Protein 8.3 H Albumin 4.9 Globulin 3.4 Albumin/Globulin Ratio 1.4 Lipase 60 SARS-CoV-2 (PCR) 08/20/22 08/20/22 19:04 22:55 WBC RBC Hgb Hct MCV MCH MCHC RDW Plt Count Neut % (Auto) Lymph % (Auto) [place] % (Auto) Eos % (Auto) Baso % (Auto) Neut # (Auto) Lymph # (Auto) [place] # (Auto) Eos # (Auto) Baso # (Auto) PT INR APTT D-Dimer 368 Sodium Potassium Chloride Carbon Dioxide BUN Creatinine Estimated GFR BUN/Creatinine Ratio Glucose Calcium Magnesium Total Bilirubin AST ALT Alkaline Phosphatase Total Creatine Kinase CK-MB (CK-2) CK-MB (CK-2) Rel Index Troponin I Total Protein Albumin Globulin Albumin/Globulin Ratio Lipase SARS-CoV-2 (PCR) Positive H Assessment & Plan Assessment & Plan narrative: April. He has been having diarrhea and has felt weak in his legs for 1 day. He is COVID positive. Elevated troponin, present on admission. Active. -troponin on admission 0.048 with total CK 261. -he has no chest pain. No ST or T-wave changes present on EKG. -possible non ST elevation MD? -possible COVID related cardiac presentation? -follow serial troponins and attempt to obtain echocardiogram. COVID status may prevent further inpatient workup of this as long as he remains asymptomatic. COVID infection, present on admission. Active. -other than mild GI symptoms and weakness he appears to be largely asymptomatic without any pulmonary presentation. -monitor closely, supplement IV fluid if needed, assess generalized weakness complaint daily. -plan discussion with ID if he develops progressive symptoms. -at this point no COVID treatment is indicated other than possible Paxlovid, if available on inpatient formulary. Hypertension, present on admission. Chronic. -continue amlodipine and metoprolol -avoid spironolactone and lisinopril due to induction of severe hyperkalemia while on those medications. Gout, present on admission. Chronic. -he reportedly takes allopurinol only ?as needed. ? Obstructive sleep apnea, present on admission. Chronic. He is full code status His backup decision maker is his Beth. Time Spent With Patient Critical Care time: I spent a total of [] minutes of critical care time on this patient's care today; this time is exclusive of procedural time.
[2022-08-20 23:37] VITALS: BMI 27.3
[2022-08-21 00:17] LABS: INR 1.1 (0.9-1.3); Prothrombin Time 12.2 SECONDS (10.1-12.7)
[2022-08-21 00:33] LABS: Troponin I 0.042 ng/mL (0.01-0.034)
--- NOTE | 2022-08-21 01:20 | PC.NURSE ---
Pt arrived from ED in wheelchair at 2300, ambulated to bed, steady on feet w/o sob or dizzy. Denies dizziness or lower extremity weakness at this time. After pt was situated in bed, lab called for positive COVID status. Pt put on droplet precautions immediately and left room. states she has 'sinus headache', got swabbed today at dr office but no results yet. Pt oriented to room and call light.
[2022-08-21 04:27] VITALS: BP 141/69; PULSE 62; RESP 18; TEMP 36.3; O2SAT 95
[2022-08-21 05:46] LABS: Add Manual Diff / Slide Review NO; Basophils Absolute Auto 100 /uL (0-100); Basophils Percent Auto 0.8 % (0-2); Eosinophils Absolute Auto 200 /uL (0-450); Eosinophils Percent Auto 2.1 % (2-4); Hematocrit 39.7 % (41-53); Hemoglobin 13.2 g/dL (13.5-17.5); Lymphocytes Absolute Auto 1700 /uL (1100-4500); Lymphocytes Percent Auto 20.6 % (25-40); Mean Corpuscular HGB Conc 33.2 % (30-36); Mean Corpuscular Hemoglobin 31.6 PG (26-34); Mean Corpuscular Volume 95.2 fL (80-100); Monocytes Absolute Auto 900 /uL (0-900); Monocytes Percent Auto 10.7 % (3-14); Neutrophils Absolute Auto 5600 /uL (1500-7000); Neutrophils Percent Auto 65.8 % (50-75); Platelet Count 201 X10^3/uL (150-400); Red Blood Cell Count 4.17 X10^6/uL (4.5-5.9); Red Cell Distribution Width 13.8 % (11.6-14.8); White Blood Cell Count 8.5 X10^3/uL (4.5-11.0)
[2022-08-21 05:51] LABS: Prothrombin Time 11.6 SECONDS (10.1-12.7)
[2022-08-21 05:55] LABS: BUN Creatinine Ratio 26.4 (6-22); Blood Urea Nitrogen 28 mg/dL (9-20); Calcium 9.2 mg/dL (8.4-10.2); Carbon Dioxide 24 mmol/L (22-32); Chloride 105 mmol/L (98-107); Estimated Glomerular Filt Rate > 60 mL/min (>60); Glucose 101 mg/dL (80-110); HEMOLYSIS < 15 (0-50); Potassium 4.4 mmol/L (3.4-5.1); Sodium 142 mmol/L (137-145)
[2022-08-21 06:06] LABS: Troponin I 0.046 ng/mL (0.01-0.034)
--- NOTE | 2022-08-21 07:20 | P.DS_ITS ---
History of Present Illness History of Present Illness Date Patient Seen: 08/21/22 Time Patient Seen: 09:00 Chief complaint: DIZZY/WEAKNESS IN BOTH LEGS Narrative: This is a 71 year old male with a history of hyperkalemia (9.0), hypertension, gout, obstructive sleep apnea, insomnia and acute kidney injury who presents today with similar symptoms to his hyperkalemia presentation back in April.? He has been having diarrhea and has felt weak in his legs for 1 day.? The hyperkalemia was found to be caused by his lisinopril/spironolactone and dehydration from over exertion doing yard work.? Those medicines were stopped.? His troponin is elevated at 0.048 with a CK elevation of 261.? The potassium is 3.9 and the creatinine is normal.? His EKG shows sinus tachycardia with LAD/LVH and no acute ST or T-wave changes.? The D-dimer was normal.? The chest x-ray is normal.? The screening COVID test is positive.? The patient has had 2 immunizations but had not gotten any booster because of his most recent illness.? His has ?sinus symptoms? and just went to her doctor today.? He has had no respiratory symptoms.? He is not hypoxic. Discharge Providers Provider Date of admission: 08/20/22 22:25 Discharge Date: 08/21/22 Primary care physician: Eleazar Hewitt MD Discharge provider: Lg Salguero DO Summary Hospital Course Discharge Diagnosis: Elevated troponin secondary to demand ischemia, present on admission.? Active.? -troponin on admission 0.048 with total CK 261. -he has no chest pain.? No ST or T-wave changes present on EKG. -possible COVID related cardiac presentation -troponins mildly elevated and did not rise -patient recently had echo this year, no need to repeat as not having chest pain COVID infection, present on admission.? Active.? -other than mild GI symptoms and weakness he appears to be largely asymptomatic without any pulmonary presentation.? -monitor closely, supplement IV fluid if needed, assess generalized weakness complaint daily.? -plan discussion with ID if he develops progressive symptoms.? -at this point no COVID treatment is indicated other than possible Paxlovid, however after discussion with patient it was decided to not pursue this unless his breathing worsens and he will contact his PCP for it Hypertension, present on admission.? Chronic. -continue amlodipine and metoprolol -avoid spironolactone and lisinopril due to induction of severe hyperkalemia while on those medications. Gout, present on admission.? Chronic.? -he reportedly takes allopurinol only ?as needed. ? Obstructive sleep apnea, present on admission.? Chronic. Hospital Course: Admitted for LE weakness and mild GI symptoms and found to have mildly elevated trop and covid positive. He had no respiratory symptoms or chest pain. Troponins were stable and did not rise, so felt to be due to demand from covid. He was largely asymptomatic so after discussion we decided to defer paxlovid as not on hospital formulary and he would call his PCP if his breathing worsens at all for a prescription. Time Spent with Patient Time spent: Greater than 30 minutes Exam Vital Signs (past 8 hours): - 08/21/22 04:27 Temperature 97.3 F L Pulse Rate 62 Respiratory Rate 18 Blood Pressure 141/69 H Pulse Oximetry 95 Oxygen Flow Rate 0 Oxygen Delivery Method Room Air Oxygen Flow Rate 0 Narrative Exam Narrative: Alert and oriented x3. No apparent distress. Pupils are equally round and reactive to light and accommodation Extraocular muscles are intact Sclerae are pink and nonicteric Throat looks normal No lymph nodes are felt head, neck, supraclavicular area There is no thyromegaly JVD is less than 6 cm No carotid bruits are heard Heart is regular rate and rhythm without murmur Lungs are clear to auscultation bilaterally Abdomen is soft bowel sounds positive nontender, no organomegaly Extremities have no ankle edema Skin has no rash or jaundice Neurological exam: Cranial nerves 2-12 test intact There is no tremor Motor function is 4/5 throughout No lateralizing deficits Objective Labs Result Diagrams: 08/21/22 05:20 08/21/22 05:20 Labs: Laboratory Results - last 24 hr 08/20/22 08/20/22 08/20/22 19:04 19:04 19:04 WBC 10.5 RBC 4.55 Hgb 14.6 Hct 42.7 MCV 93.8 MCH 32.0 MCHC 34.1 RDW 14.0 Plt Count 239 Neut % (Auto) 63.5 Lymph % (Auto) 22.8 L [place] % (Auto) 9.5 Eos % (Auto) 2.8 Baso % (Auto) 1.4 Neut # (Auto) 6700 Lymph # (Auto) 2400 [place] # (Auto) 1000 H Eos # (Auto) 300 Baso # (Auto) 100 PT 11.5 INR 1.0 APTT 32 D-Dimer Sodium 140 Potassium 3.9 Chloride 104 Carbon Dioxide 23 BUN 27 H Creatinine 1.12 Estimated GFR > 60 BUN/Creatinine Ratio 24.1 H Glucose 128 H Calcium 9.4 Magnesium 1.9 Total Bilirubin 0.3 AST 32 ALT 31 Alkaline Phosphatase 79 Total Creatine Kinase 261 H CK-MB (CK-2) 4.54 H CK-MB (CK-2) Rel Index 1.7 Troponin I 0.048 H Total Protein 8.3 H Albumin 4.9 Globulin 3.4 Albumin/Globulin Ratio 1.4 Lipase 60 SARS-CoV-2 (PCR) 08/20/22 08/20/22 08/20/22 19:04 22:55 23:59 WBC RBC Hgb Hct MCV MCH MCHC RDW Plt Count Neut % (Auto) Lymph % (Auto) [place] % (Auto) Eos % (Auto) Baso % (Auto) Neut # (Auto) Lymph # (Auto) [place] # (Auto) Eos # (Auto) Baso # (Auto) PT 12.2 INR 1.1 APTT D-Dimer 368 Sodium Potassium Chloride Carbon Dioxide BUN Creatinine Estimated GFR BUN/Creatinine Ratio Glucose Calcium Magnesium Total Bilirubin AST ALT Alkaline Phosphatase Total Creatine Kinase CK-MB (CK-2) CK-MB (CK-2) Rel Index Troponin I Total Protein Albumin Globulin Albumin/Globulin Ratio Lipase SARS-CoV-2 (PCR) Positive H 08/20/22 08/21/22 08/21/22 23:59 05:20 05:20 WBC 8.5 RBC 4.17 L Hgb 13.2 L Hct 39.7 L MCV 95.2 MCH 31.6 MCHC 33.2 RDW 13.8 Plt Count 201 Neut % (Auto) 65.8 Lymph % (Auto) 20.6 L [place] % (Auto) 10.7 Eos % (Auto) 2.1 Baso % (Auto) 0.8 Neut # (Auto) 5600 Lymph # (Auto) 1700 [place] # (Auto) 900 Eos # (Auto) 200 Baso # (Auto) 100 PT INR APTT D-Dimer Sodium Potassium Chloride Carbon Dioxide BUN Creatinine Estimated GFR BUN/Creatinine Ratio Glucose Calcium Magnesium Total Bilirubin AST ALT Alkaline Phosphatase Total Creatine Kinase CK-MB (CK-2) CK-MB (CK-2) Rel Index Troponin I 0.042 H 0.046 H Total Protein Albumin Globulin Albumin/Globulin Ratio Lipase SARS-CoV-2 (PCR) 08/21/22 08/21/22 05:20 05:20 WBC RBC Hgb Hct MCV MCH MCHC RDW Plt Count Neut % (Auto) Lymph % (Auto) Highlands % (Auto) Eos % (Auto) Baso % (Auto) Neut # (Auto) Lymph # (Auto) [place] # (Auto) Eos # (Auto) Baso # (Auto) PT 11.6 INR 1.0 APTT D-Dimer Sodium 142 Potassium 4.4 Chloride 105 Carbon Dioxide 24 BUN 28 H Creatinine 1.06 Estimated GFR > 60 BUN/Creatinine Ratio 26.4 H Glucose 101 Calcium 9.2 Magnesium Total Bilirubin AST ALT Alkaline Phosphatase Total Creatine Kinase CK-MB (CK-2) CK-MB (CK-2) Rel Index Troponin I Total Protein Albumin Globulin Albumin/Globulin Ratio Lipase SARS-CoV-2 (PCR) [facility] Medical History (Updated 08/21/22 @ 00:20 by Argelia Lundy MD) EUGENIE (acute kidney injury) Gout Hyperkalemia Hypertension Insomnia Knee pain Obstructive sleep apnea Surgical History (Updated 08/21/22 @ 00:20 by Argelia Lundy MD) History of appendectomy Family History Father Cancer Mother Cancer Social History household members: spouse Smoking Status: Never smoker alcohol intake: current Discharge Plan Discharge Plan Patient Disposition: Home Provider Discharge Comment: You were admitted for a mildly elevated heart enzyme and weakness and found to have COVID. Your heart enzyme was not high enough and you didn't have chest pain to suggest you were having a heart attack, but you may have some underlying coronary artery disease. Please take a baby aspirin daily. If you ever develop any chest discomfort or pain, come to the ED right away. For your COVID if you develop any breathing difficulty then please see yo ur PCP for a prescription for Paxlovid. You should only need to quarantine a total of 5 days since onset of symptoms. Discharge orders & Medications Prescriptions: New aspirin 81 mg capsule 81 mg PO DAILY Qty: 90 0RF Continued atorvastatin 20 mg tablet 20 mg PO DAILY Label Comments: TAKE 1 TABLET BY MOUTH EVERY DAY FOR CHOLESTEROL allopurinol 300 mg tablet 300 mg PO PRN PRN (Reason: Gout) Label Comments: TAKE 1 TABLET BY MOUTH TWICE DAILY metoprolol succinate 50 mg tablet extended release 24 hr 50 mg PO BID Label Comments: 1 tablet by mouth twice a day amlodipine 10 mg tablet 10 mg PO DAILY Follow up/Referrals: Eleazar Hewitt MD [Primary Care Provider] - 09/02/22 11:15 am (Follow up appointment made to see Dr. Hewitt on FridaySeptember 02 at 11:15. Please arrive 15 minutes prior to your scheduled appointment time.) Visit Report/Discharge Packet Instructions: Cardiac Troponin, DI for COVID-19 (Suspected or Confirmed ) Discharge Data Primary Care Provider: Eleazar Hewitt Attending Provider: Argelia Lundy
[2022-08-21 08:19] VITALS: BP 146/80; PULSE 69; RESP 18; TEMP 37.1; O2SAT 94
[2022-08-21 09:13] VITALS: PULSE 74
[2022-08-21] MEDS: METOPROLOL ER 50 MG TABLET PO (09:13)
[2022-08-21] MEDS: ENOXAPARIN 40 MG/0.4 ML SYRINGE SUBCUT (09:13)
[2022-08-21 09:48] VITALS: PULSE 81
--- NOTE | 2022-08-21 11:59 | PC.NURSE ---
Day shift: Pt left unit at approx 1200. His Spouse is driving him home. Remains pain free. New MD script sent to Pt's pharmacy electronic. Pt has all personal belongings. Paperwork signed and all questions answered.
== END 2022-08-21 12:00 | disposition home or self-care (01) ==
LOC: ED 22:18 → AC 22:27
PROVIDERS: Admitting Provider Family Medicine; Emergency Provider Family Medicine Addiction Medicine; PCP Family Medicine; Referring Provider Family Medicine Addiction Medicine; Visit Provider Family Medicine
DX: U07.1 COVID-19 (principal); R42 Dizziness and giddiness; I24.8 Other forms of acute ischemic heart disease; R77.8 Other specified abnormalities of plasma proteins; R53.1 Weakness; R19.7 Diarrhea, unspecified; I10 Essential (primary) hypertension; G47.33 Obstructive sleep apnea (adult) (pediatric); M1A.9XX0 Chronic gout, unspecified, without tophus (tophi)
CPT/HCPCS: 36415; 71045; 80048; 80053; 82550; 82553; 83690; 83735; 84484; 85025; 85379; 85610; 85730; 87635; 93005; 96372; 99282; 99284; C9803; G0378; J1650

== ENCOUNTER → 2023-07-17 09:02 | Outpatient (CLI) | payer MEDICARE, SELFPAY ==
--- NOTE | 2023-07-17 | DI.ECHO.S_ITS ---
[place] +---------+ [facility] +---------+ : : [address] : : : : [id number] : : : : Phone: [phone]+ Echocardiogram Report + + :Name: CRIS SALGUERO Study Date: 07/17/2023 Height: 72 in : :[facility] ReadingLocation: Weight: 220 lb : : Gender: Male BSA: 2.2 m2 : :: 1950 Age: 72 yrs BP: 180/93 mmHg: :Reason For Study: Dyspnea : :Ordering Physician: DAIJA, : :MICHEAL Dickinson Performed By: Coni Mayen : :Referring: MICHEAL CHOE : + + Interpretation Summary The left ventricle is normal in size. The left ventricular ejection fraction is normal. The ejection fraction is estimated to be 60-65%. There has been no significant change in LVEF since the previous exam. The right ventricle is normal in size and function. No significant valvular pathology seen. The IVC is of normal diameter and collapses greater than 50% with a sniff. This suggests a low right atrial pressure of 3 mm Hg. Procedure: A two-dimensional transthoracic echocardiogram with color flow and Doppler was performed. The study quality was technically adequate. Comparison is made with the echocardiogram of 04/26/2022. The patient was in normal sinus rhythm during the exam. Left Ventricle: The left ventricle is normal in size. There is normal left ventricular wall thickness. There is no thrombus. The ejection fraction is estimated to be 60-65%. The left ventricular ejection fraction is normal. There has been no significant change since the previous exam. There are no focal wall motion abnormalities. Diastolic parameters suggest a relaxation abnormality of the left ventricle, consistent with probable normal filling pressures. Right Ventricle: The right ventricle is normal in size and function. Atria: The left atrial size is normal. There has been no significant change since the previous study. Right atrial size is normal. The atrial septum is aneurysmal. Mitral Valve: There is mild mitral annular calcification. There is no mitral valve stenosis. There is trace mitral regurgitation. Aortic Valve: The aortic valve is trileaflet. The aortic valve opens well. There is mild aortic valve sclerosis. There is discrete nodular thickening of the right coronary cusp. There is no aortic valve stenosis. There is trace aortic regurgitation. Tricuspid Valve: The tricuspid valve is normal. There is no tricuspid stenosis. There is trace tricuspid regurgitation. Pulmonary artery pressures cannot be estimated because of the lack of a measurable TR jet velocity. Pulmonic Valve: The pulmonic valve is not well visualized. There is no pulmonic valvular stenosis. There is trace pulmonic regurgitation. Great Vessels: The aortic root is normal size. There is aortic root sclerosis/calcification. The ascending aorta is at the upper limits of normal in size. Aortic arch not well visualized. The pulmonary artery is normal size. The IVC is of normal diameter and collapses greater than 50% with a sniff. This suggests a low right atrial pressure of 3 mm Hg. Pericardium/ Pleura There is no pericardial effusion. There is no pleural effusion. MMode/2D Measurements & Calculations LVIDd: 4.7 cm LVOT diam: 2.0 cm LVIDs: 2.6 cm Ao root diam: 2.6 cm FS: 44.7 % asc Aorta Diam: 3.8 cm IVSd: 1.0 cm LVPWd: 0.90 cm LV mendoza. diameter/BSA (cm/m^2): 2.1 LV sys. diameter/BSA (cm/m^2): 1.2 LA A2 area: 20.3 cm2 RA long axis: 4.3 cm LA A4 area: 20.6 cm2 RA area: 11.4 cm2 LA length (vol): 6.0 cm RA vol: 25.6 ml LA vol: 59.2 ml RA : 11.5 ml/m2 LA vol index: 26.7 ml/m2 RVD1 (basal): 3.8 cm LVLs ap4: 6.8 cm LVLd ap2: 8.2 cm TAPSE_phl: 2.1 cm LVLs ap2: 7.2 cm Doppler Measurements & Calculations Ao V2 max: 147.3 cm/sec LVOT Max Ed: 111.0 cm/sec Ao V2 mean: 100.8 cm/sec LV V1 max P.9 mmHg Ao max P.0 mmHg LV V1 VTI: 24.5 cm Ao mean P.0 mmHg PAXTON(I,D): 2.5 cm2 Ao V2 VTI: 31.0 cm PAXTON(V,D): 2.4 cm2 sev ratio: 0.79 PAXTON indexed to BSA (cm^2/m^2): 1.1 MV E max ed: 79.4 cm/sec TR max ed: 162.9 cm/sec MV A max ed: 101.0 cm/sec TR max P.6 mmHg MV E/A: 0.79 PA V2 max: 95.6 cm/sec Med Peak E' Ed: 7.5 cm/sec PA V2 mean: 66.2 cm/sec E/E' med: 10.6 PA mean P.0 mmHg Lat Peak E' Ed: 11.9 cm/sec PA pr(Accel): 45.7 mmHg E/E' lat: 6.7 E/e' average: 8.6 MV dec time: 0.21 sec SV(LVOT): 76.8 ml AV VR_phl: 0.76 PAXTON(VTI)/BSA_phl: 1.1 Reading Physician:04:45 PM
== END ==
PROVIDERS: PCP Family Medicine; Referring Provider Family Medicine; Visit Provider Family Medicine
DX: R06.09 Other forms of dyspnea (principal); R68.89 Other general symptoms and signs
CPT/HCPCS: 93306

== ENCOUNTER → 2025-04-16 12:57 | Outpatient (CLI) | payer MEDICARE, SELFPAY ==
--- NOTE | 2025-04-16 13:00 | DI.MRI.S_ITS ---
PROCEDURE: MR PELVIC PROSTATE PROTOCOL INDICATIONS: 74 y/o M w/ elevated PSA, please eval TECHNIQUE: Coronal HASTE, axial T1 FSE with fat saturation, 3-plane nonbreath-hold T2 FSE. After the administration of contrast, dynamic axial, delayed axial and coronal VIBE or 2-D FLASH with fat saturation through the pelvis. Diffusion weighted imaging and ADC was performed. COMPARISON: None. FINDINGS: Image quality: Diffusion weighted and dynamic contrast enhanced images are partially diagnostic. Full imaging of the left aspect of the gland is limited secondary to left hip arthroplasty hardware artifact, particularly affecting diffusion-weighted images and full field of view post contrast imaging. Prostate: Gland size is 4.4 x 4.9 by 4.0 cm; ellipsoid gland volume is 44.8 mL. Given PSA of 7.81, PSA density is 0.17. Lesion 1: Location: Left posterolateral peripheral zone from mid gland to apex level is seen on axial series 5, image 14 and coronal series 6, image 16. Size: Approximately 1.7 cm in greatest oblique diameter. T2W signal: Ill-defined, hypointense DWI signal: Markedly hyperintense. ADC signal: Markedly hypointense. Enhancement: Yes. Extracapsular extension: Yes. Abuts the capsule. Probable neurovascular bundle involvement. PI-RADS score: Five Genitourinary system: Bladder wall thickness is normal. Distal ureters are non distended. Visible portions of the scrotum are normal. Bowel and peritoneum: Diverticulosis of the sigmoid colon. Visible small and large bowel loops are otherwise normal. No free fluid or suspicious soft tissue mass. Nodes and vessels: No pelvic or inguinal adenopathy by size criteria. Iliac vessels are normal in caliber. Soft tissues: Small bilateral inguinal hernias. Bones: Left hip arthroplasty. No suspicious bone lesions. IMPRESSION: PI-RADS five lesion in the left posterolateral peripheral zone of a normal sized gland. No pelvic lymphadenopathy by size criteria. No aggressive osseous abnormality. Dictated by: Denae Amaral M.D. on 04/18/2025 at 11:28 Approved by: Denae Amaral M.D. on 04/18/2025 at 11:49
== END ==
PROVIDERS: PCP Family Medicine; Referring Provider Urology; Visit Provider Urology
DX: N42.9 Disorder of prostate, unspecified (principal); R97.20 Elevated prostate specific antigen [PSA]; K57.30 Diverticulosis of large intestine without perforation or abscess without bleeding; K40.90 Unilateral inguinal hernia, without obstruction or gangrene, not specified as recurrent; Z96.642 Presence of left artificial hip joint
CPT/HCPCS: 72197; A9579

== ENCOUNTER → 2025-06-17 08:54 | Outpatient (CLI) | payer MEDICARE, SELFPAY ==
--- NOTE | 2025-06-17 08:56 | DI.CT.S_ITS ---
PROCEDURE: CT CHEST ABD PEL W CON INDICATIONS: 74 y/o M w/ prostate cancer, eval for mets TECHNIQUE: After the administration of intravenous contrast, 5 mm thick sections acquired from the lung apices to the symphysis. 5 mm coronal and sagittal reformats were performed, with additional 7 mm MIP reformats through the lungs. For radiation dose reduction, the following was used: automated exposure control, adjustment of mA and/or kV according to patient size. COMPARISON: [facility], MR, MR PELVIC PROSTATE PROTOCOL, 04/16/2025, 13:08. FINDINGS: Image quality: Diagnostic Lungs and pleura: Scattered scarring atelectasis, most obvious in the right middle lobe. No suspicious focal nodule. No airspace consolidation or pleural effusion. Mediastinum, heart, and esophagus: Coronary, valvular, and annular cardiac calcifications. No enlarged lymph nodes identified by size criteria. Unremarkable esophagus. Chest wall and thyroid: Unremarkable thyroid on CT. [id number] bilateral gynecomastia Liver: Segment 5 cyst. Other subcentimeter lesions are present, probably also cysts, but too small to characterize. Attention on follow-up abdominal MRI given pancreatic lesion. Gallbladder and biliary system: Unremarkable, nondilated Pancreas: Multiloculated cystic lesion at the pancreatic head, measuring 5 x 2.9 cm. There are multiple thin enhancing septations. No ductal dilation. Mild parenchymal atrophy. Spleen: Nonenlarged Adrenals: No discrete nodules Kidneys: There are renal cysts. No solid enhancing nodule identified. No hydronephrosis. Vessels and lymph nodes: The main portal vein is patent. No abdominal aortic aneurysm. Mild aortoiliac atherosclerotic calcifications. There are no enlarged lymph nodes by size criteria. Bowel and peritoneum: Colonic diverticula. No drainable abscess or ascites. Body wall: Moderate fat containing inguinal hernias. Small fat containing umbilical hernia. Pelvis: Bladder is under distended. Heterogeneous prostate enhancement with probably primary lesion in the left peripheral zone, better assessed on MRI. Pelvis is obscured overall by metallic artifact Bones: Left hip arthroplasty. There are degenerative changes. No aggressive appearing osseous abnormality. IMPRESSION: Primary prostate malignancy, better assessed on MRI. No definite soft tissue metastases identified. No suspicious bone lesion by CT. Consider prostate PET-CT for increased sensitivity. Nuclear medicine bone scan could also be considered. Multiloculated pancreatic head cystic lesion is probably a cystic neoplasm. Recommend EUS/FNA and pancreas protocol MRI. This is likely to be unrelated to the prostate malignancy. Other findings above. Dictated by: Ramakrishna Carter M.D. on 06/17/2025 at 11:40 Approved by: Ramakrishna Carter M.D. on 06/17/2025 at 11:47
[2025-06-17 09:34] LABS: Estimated Glomerular Filt Rate > 60 mL/min (>60)
== END ==
LOC: CT 08:55
PROVIDERS: PCP Family Medicine; Referring Provider Urology; Visit Provider Urology
DX: C61 Malignant neoplasm of prostate (principal); K86.2 Cyst of pancreas; K76.89 Other specified diseases of liver; N28.1 Cyst of kidney, acquired; K40.90 Unilateral inguinal hernia, without obstruction or gangrene, not specified as recurrent; K57.90 Diverticulosis of intestine, part unspecified, without perforation or abscess without bleeding; K42.9 Umbilical hernia without obstruction or gangrene; I25.10 Atherosclerotic heart disease of native coronary artery without angina pectoris; I34.81 Nonrheumatic mitral (valve) annulus calcification
CPT/HCPCS: 36415; 71260; 74177; 82565; Q9967

== ENCOUNTER → 2025-06-20 10:45 | Outpatient (CLI) | payer MEDICARE, SELFPAY ==
--- NOTE | 2025-06-20 10:47 | DI.NM.S_ITS ---
PROCEDURE: NM BONE SCAN WHOLE BODY RADIOPHARMACEUTICAL: 21.3 mCi Tc-99m MDP IV. INDICATIONS: 74 y/o M w/ prostate cancer, eval for mets TECHNIQUE: Delayed whole-body scintigrams were obtained approximately 3-4 hours after intravenous injection of radiotracer. Anterior and posterior views were acquired from vertex to feet. Additional left and right oblique views of the pelvis were obtained. COMPARISON: [facility], CT, CT CHEST ABD PEL W CON, 06/17/2025, 9:59. FINDINGS: Degenerative uptake in the shoulders, left the, right 1st MTP. Indeterminate radiotracer uptake projecting over the nasal bone and left maxilla . IMPRESSION: Indeterminate radiotracer uptake projecting over the nasal bone and left maxilla. Findings could be a sequela of prior fracture and dental disease, respectively. Metastatic disease less likely. No other regions of suspicious radiotracer uptake. Dictated by: Donald Fitzgerald M.D. on 06/20/2025 at 15:20 Approved by: Dnoald Fitzgerald M.D. on 06/20/2025 at 15:22
== END ==
LOC: NUCM 10:47
PROVIDERS: PCP Family Medicine; Referring Provider Urology; Visit Provider Urology
DX: C61 Malignant neoplasm of prostate (principal)
CPT/HCPCS: 78306; A9503

== ENCOUNTER → 2025-07-08 16:01 | Outpatient (CLI) | payer MEDICARE, SELFPAY ==
--- NOTE | 2025-07-08 16:02 | DI.MRI.S_ITS ---
PROCEDURE: MR AB PANCREATIC/MRCP PROTOCOL INDICATIONS: h/o pancreatic cancer TECHNIQUE: Coronal HASTE through the abdomen, axial 2-D FLASH in- and [id number], and breath-hold T2 FSE with fat saturation through the biliary system and pancreas. Oblique coronal and axial thin-slice HASTE, radial thick-slab HASTE centered on the extrahepatic bile ducts. Intravenous secretin: Not requested. COMPARISON: [facility], CT, CT CHEST ABD PEL W CON, 06/17/2025, 9:59. FINDINGS: Image quality: Diagnostic. Gallbladder: No significant stones, wall thickening, or pericholecystic fluid. Biliary ducts: No biliary dilation. Pancreas: Multiloculated cystic mass arising from the neck of the pancreas measures roughly 3.5 x 4.8 x 3.8 cm this is in close proximity, and/or connected to the main pancreatic duct. There is mild delayed septal enhancement. No significant nodular enhancement. No restricted diffusion. Distally, the main pancreatic duct is mildly dilated measuring 7 mm. A few very tiny side-branch dilatations are seen. 1.2 cm ovoid cyst present in the distal tail. Mildly dilated side branch in the head of the pancreas.. OTHER: Lung bases: Unremarkable. Liver: Occasional subcentimeter cyst. A dominant, unilocular cyst in segment five measures 5.6 x 5.8 cm. No solid mass. Spleen: Size is within normal limits. Adrenal Glands: No adrenal nodules. Kidneys and Ureters: Mild bilateral renal atrophy. Several cortical and medullary cysts bilaterally. No hydronephrosis or enhancing mass. Stomach and Bowel: Stomach and visible bowel loops are within normal limits. Peritoneum: No abnormal intraperitoneal fluid. No free air. Ventral Wall: No hernia. Abdominal Nodes: No retroperitoneal or mesenteric adenopathy by size criteria. Vessels: Aorta and inferior vena cava are normal in size. Bones: No aggressive osseous abnormality. IMPRESSION: Multi septated cystic mass in the proximal pancreas is likely benign neoplasm such as IPMN or cystadenoma. Given size, endoscopic ultrasound and FNA is recommended. No adenopathy or other suspicious feature to suggest malignancy. Dictated by: Denae Amaral M.D. on 07/11/2025 at 10:11 Approved by: Denae Amaral M.D. on 07/11/2025 at 10:47
== END ==
PROVIDERS: PCP Family Medicine; Referring Provider Family Medicine; Visit Provider Family Medicine
DX: K86.89 Other specified diseases of pancreas (principal); Z80.0 Family history of malignant neoplasm of digestive organs
CPT/HCPCS: 74183; A9579

== ENCOUNTER → 2025-08-26 14:06 | Outpatient (CLI) | payer MEDICARE, SELFPAY ==
--- NOTE | 2025-08-26 14:08 | DI.NM.S_ITS ---
PROCEDURE: NM RAYMOND PERF SPECT R&S PHARM Rest and pharmacological stress myocardial perfusion SPECT with gated imaging and ejection fraction RADIOPHARMACEUTICAL: 26.7 mCi Tc-99m tetrafosmin IV at rest and 26.6 mCi Tc-99m tetrafosmin IV at peak effect of pharmacological stress. [id number] was performed. INDICATIONS: Chest pain/ anginal equiv, intermediate CAD risk TECHNIQUE: Radiopharmaceutical was injected at peak stress test, and also at rest. SPECT images were obtained. SPECT myocardial perfusion images were displayed in short axis, horizontal long axis, and vertical long axis views. Gated images were reviewed using DNA Guide software. COMPARISON: None. CARDIAC STRESS: A pharmacologic stress test was performed under the supervision of an attending staff, using an infusion of regadenoson 0.4 mg IV. Hemodynamic data: There is normal blood pressure and heart rate response to pharmacologic stress. Symptoms: The patient denied anginal chest pain. EKG: No diagnostic changes of ischemia; no ectopy. FINDINGS: Raw data: There is good myocardial uptake of radiotracer. No significant motion artifacts. There is evidence of diaphragmatic attenuation. Left ventricle function: Gated images demonstrate normal left ventricular wall thickening. No segmental wall motion abnormalities. No transient ischemic dilation; TID is 0.91 (normal less than 1.3). Left ventricle resting end diastolic volume is 133 mL. Left ventricle stress ejection fraction is >75%; normal range is above 45%. Myocardial perfusion: There is a small size, moderate intensity fixed basal inferior wall defect. No prone imaging obtained. No reversible perfusion defects. IMPRESSION: Low risk study. No reversible perfusion defects. There is a small size, moderate intensity fixed basal inferior wall defect occurring in the setting of diaphragmatic attenuation and no prone imaging. Mildly dilated left ventricle based on calculated LVEDV with hyperdynamic function. Dictated by: Sarai Locke D.O. on 09/05/2025 at 13:21 Approved by: Sarai Locke D.O. on 09/05/2025 at 13:23
== END ==
LOC: NUCM 14:07
PROVIDERS: PCP Family Medicine; Referring Provider Internal Medicine; Visit Provider Internal Medicine
DX: R07.9 Chest pain, unspecified (principal); I25.2 Old myocardial infarction
CPT/HCPCS: 78452; 93017; A9502; J2785

== ENCOUNTER → 2025-09-02 12:40 | Outpatient (CLI) | payer MEDICARE, SELFPAY ==
--- NOTE | 2025-09-02 12:48 | DI.ECHO.S_ITS ---
[place] [facility] : : [address] : : [place] : : [id number] : : Phone: [phone] Echocardiogram Report + + :Name: CRIS SALGUERO Study Date: 09/02/2025 Height: 71 in : :[facility] ReadingLocation: Weight: 220 lb : : Gender: Male BSA: 2.2 m2 : :: 1950 Age: 74 yrs BP: 190/93 mmHg: :Reason For Study: CHEST PAIN : :Ordering Physician: LARRY VENTURA Performed By: Bertin Kidd : :Referring: LARRY VENTURA : + + Interpretation Summary - The left ventricular contractility is normal. Estimated ejection fraction is greater than 60% with no segmental wall motion abnormalities. No LVH. Normal diastolic function. - The right ventricular contractility is normal. - All cardiac chambers are of normal size. - No significant valvular abnormalities. - No obvious intracardiac shunts. - No obvious intracardiac masses nor thrombi. - No hemodynamically significant pericardial effusion. Conclusion: Normal biventricular function with no significant valvular abnormalities. When compared with previous echocardiogram, no significant changes have occurred. Procedure: A two-dimensional transthoracic echocardiogram with color flow and Doppler was performed. The study quality was technically good. Comparison is made with the echocardiogram of 07/17/2023. The patient was in normal sinus rhythm during the exam. Left Ventricle: The left ventricle is normal in size. Left ventricular wall thickness is normal. There is no ventricular septal defect visualized. The ejection fraction is estimated to be 60-65%. There are no focal wall motion abnormalities. Normal diastolic function. Right Ventricle: The right ventricle is normal in size and function. Atria: The left atrial size is normal. Right atrial size is normal. There is no Doppler evidence for an interatrial shunt. Mitral Valve: There is mild mitral annular calcification. The mitral valve leaflets appear mildly thickened. There is no mitral regurgitation. Aortic Valve: The aortic valve is trileaflet. The aortic valve is mildly calcified. No aortic regurgitation is present. Tricuspid Valve: The tricuspid valve leaflets are thin and pliable. There is trace tricuspid regurgitation. Pulmonic Valve: The pulmonic valve is not well seen, but is grossly normal. There is trace pulmonic regurgitation. Great Vessels: The aortic root is normal size. The dimensions of the ascending aorta are normal. The pulmonary artery is not well visualized, but is probably normal size. The inferior vena cava was not visualized. Pericardium/ Pleura There is no pericardial effusion. There is no pleural effusion. MMode/2D Measurements & Calculations LVIDd: 5.0 cm LVOT diam: 2.2 cm LVIDs: 3.2 cm Ao root diam: 3.9 cm FS: 36.1 % asc Aorta Diam: 3.6 cm EPSS: 0.58 cm IVSd: 1.2 cm LVPWd: 1.1 cm LV mendoza. diameter/BSA (cm/m^2): 2.3 LV sys. diameter/BSA (cm/m^2): 1.4 LA A2 area: 21.8 cm2 RA long axis: 5.1 cm LA A4 area: 21.3 cm2 RA area: 16.2 cm2 LA length (vol): 6.3 cm RA vol: 44.0 ml LA vol: 62.1 ml RA : 20.0 ml/m2 LA vol index: 28.3 ml/m2 RVD1 (basal): 3.7 cm RVD2 (mid): 3.3 cm TAPSE: 2.6 cm Doppler Measurements & Calculations Ao V2 max: 173.0 cm/sec LVOT Max Ed: 117.2 cm/sec Ao V2 mean: 109.4 cm/sec LV V1 max P.5 mmHg Ao max P.0 mmHg LV V1 VTI: 24.8 cm Ao mean P.6 mmHg PAXTON(I,D): 3.1 cm2 Ao V2 VTI: 30.4 cm PAXTON(V,D): 2.6 cm2 sev ratio: 0.82 PAXTON indexed to BSA (cm^2/m^2): 1.4 MV E max ed: 90.4 cm/sec TR max ed: 247.4 cm/sec MV A max ed: 95.0 cm/sec TR max P.5 mmHg MV E/A: 0.95 PA V2 max: 135.7 cm/sec Med Peak E' Ed: 6.9 cm/sec PA V2 mean: 83.6 cm/sec E/E' med: 13.0 PA mean P.3 mmHg Lat Peak E' Ed: 10.1 cm/sec PA pr(Accel): 41.3 mmHg E/E' lat: 9.0 E/e' average: 11.0 MV dec time: 0.25 sec SV(LVOT): 95.1 ml Reading Physician:KIRILL
== END ==
LOC: NUCM 12:43
PROVIDERS: PCP Family Medicine; Referring Provider Internal Medicine; Visit Provider Internal Medicine
DX: I34.81 Nonrheumatic mitral (valve) annulus calcification (principal); R07.9 Chest pain, unspecified
CPT/HCPCS: 93306